=== PATIENT | female | born 1975 | race Caucasian/White ===

== ENCOUNTER 2016-12-18 01:21 | Inpatient (IN) | payer MEDICARE, OTHER ==
[~2016-12-18] VITALS: Ht 167.6 cm; Wt 188.3 kg
[2016-12-18] VITALS (9 sets, daily range): BP systolic 114–166; BP diastolic 63–88
--- NOTE | ~2016-12-18 | CON ---
[place], [place] REPORT OF CONSULTATION NAME[id number] UNIT #: [id number] ROOM: 406 DOCTOR: JODIE HUGHES MD BIRTHDATE: [birth year] DOS: 12/18/2016 CARDIOLOGY CONSULTATION The patient was seen at her bedside at [facility] today 12/18/2016 for Cardiology consultation. CHIEF COMPLAINT: Chest pain. HISTORY OF PRESENT ILLNESS: The patient is a 41-year-old woman who has had chest pain in the past. She was evaluated by Dr. Burris in 2013, at which time, a stress test was felt to be abnormal. She subsequently underwent cardiac catheterization and she reports that no blockages were found. Study was done at the [facility]. The patient states that she has not had cardiac followup since then. She also does have a history of deep venous thrombosis and pulmonary embolism. She states that she was treated with Xarelto in the past, but she bled into her abdomen. She cannot be more specific than that. She states that she was hospitalized in [place] and the blood thinner was stopped. She refuses to take blood thinners at this time. She states that for the last 5 days, she has had a constant pain in the center of her chest. It gets worse with exertion, but also gets worse with a deep breath. Nothing much makes it better. She was worried that she had another pulmonary embolism and therefore came to the Emergency Room. In the Emergency Room, laboratory studies did show an acute elevation in her creatinine levels. She therefore did undergo a V/Q scan to look for the possibility of pulmonary emboli. The study was reportedly normal. In addition, a lower extremity venous ultrasound showed no evidence for deep venous thrombosis. We were asked to assist in the evaluation of her chest pain. The patient states that she still does have some residual pain in her chest, although it is better than it was yesterday. It still does get worse with a deep breath. PAST MEDICAL HISTORY: Includes, 1. History of bipolar disorder. 2. History of depression. 3. History of deep venous thrombosis and pulmonary embolism in the past. 4. History of bleeding while on Xarelto. 5. History of chest pain. A stress test in 03/2014 showed inferior ischemia. She tells me that Dr. Brown did a cardiac catheterization at [facility] at that time and found no blockages. Those records will be requested. 6. Lymphedema of her legs, worse on the right than on the left. 7. Polycystic ovary syndrome. 8. History of hypothyroidism, on replacement. 9. History of cholecystectomy and hysterectomy. REVIEW OF SYSTEMS: The patient denies diplopia or loss of vision. She denies [place], [place] REPORT OF CONSULTATION NAME: THOMAS FREEMAN UNIT #: [id number] ROOM: [facility] DOCTOR: JODIE HUGHES MD BIRTHDATE: [birth year] focal weakness. She denies lightheadedness or syncope. She denies orthopnea or PND. She denies fevers, chills, sweats or recent weight change. She does admit, however, that since she quit smoking about 6 months ago, she has gained some weight. She denies nausea or vomiting. She does have a cough, but it is nonproductive. She denies fevers, chills or sweats. She denies any change in bowel or bladder habits and denies bleeding from any site. She does have chronic swelling in her legs from lymphedema. She denies any polydipsia or polyuria. She denies heat or cold intolerance. Remainder of the review of systems is negative except as noted above. MEDICATIONS: Prior to admission, 1. Abilify 5 mg at bedtime. 2. Hydroxyzine 50 mg b.i.d. 3. Lamictal 100 mg in the morning and 200 mg at bedtime. 4. Levothyroxine 100 mcg 4 tablets daily at bedtime and 600 mcg in the morning. 5. Metformin 2000 mg daily. 6. Oxycodone 5 mg q.8 hours p.r.n. 7. Ranitidine 150 mg b.i.d. 8. Victoza 0.6 mg per 0.1 mL, 18 mg subcutaneously b.i.d. ALLERGIES: She has no known drug allergies. FAMILY HISTORY: Her mother has atrial fibrillation. Her father has hypertension, both parents are alive. She states that other family members do have coronary artery disease. SOCIAL HISTORY: The patient was a smoker, but quit about 6 months ago. She does not consume significant amounts of alcohol at this time. PHYSICAL EXAMINATION: GENERAL: The patient is a morbidly obese white female who is awake, alert and oriented. VITAL SIGNS: Pulse is 54 and regular, blood pressure is 121/76. She is afebrile. She weighs 188.3 kg and has a body mass index of 67. HEENT: Normocephalic, atraumatic. Extraocular muscles are intact. Sclerae are clear. Pupils are equal, round and react to light. The oral mucosa is moist. Tongue is midline. NECK: Supple. She has no jugular distention. Carotids are full. I heard no bruits. She had no neck vein or supraclavicular masses. RESPIRATORY: Respirations are unlabored. Her chest is clear to auscultation and percussion. She has no presacral edema or chest wall tenderness. CARDIOVASCULAR: Her heart has a regular rhythm. Heart tones are distant. There is a fourth heart sound, but no third heart sound or murmur. The PMI is not displaced. There is no precordial heave, lift or thrill. Please note the palpation of the sternum does reproduce her pains. ABDOMEN: Obese, but otherwise benign, without masses, organomegaly or bruits. EXTREMITIES: Showed marked lymphedema. Her right leg is wrapped. LABORATORY DATA: I reviewed her electrocardiogram, which showed sinus rhythm, nonspecific ST and T-wave changes. No acute ST elevations were seen. Cardiac [place], [place] REPORT OF CONSULTATION NAME: THOMAS FREEMAN UNIT #: [id number] ROOM: [facility] DOCTOR: JODIE HUGHES MD BIRTHDATE: [birth year] biomarkers have been normal. The patient did undergo V/Q scanning. A CT angiogram was not done because of an acute elevation in her creatinine. The V/Q scan was normal and showed no evidence for pulmonary embolism. Lower extremity venous ultrasound was also normal and there was no evidence for DVT. Chest x-ray was unremarkable. IMPRESSIONS: 1. Atypical chest pain. The patient shows no objective evidence for myocardial infarction despite the fact that she has had pain for several days. There is also no objective evidence for deep vein thrombosis or pulmonary embolism. 2. Morbid obesity. 3. Depression. 4. History of bleeding while on Zaroxolyn in the past. Records are not currently available. 5. History of atypical chest pain. Cardiac catheterization in 2013 reportedly showed normal coronaries. Those records are being requested. 6. Chronic lymphedema of the lower extremities. PLAN: We will review the records of her catheterization when available. I have already reviewed her echocardiogram, which showed no wall motion abnormalities or evidence for right ventricular strain. I think at this point that noncardiac chest pain is the most likely etiology for her symptoms. In addition, I do not think that she shows any signs that she has had a pulmonary embolism recently. Symptomatic care appears to be appropriate along with risk factor modification. We will follow her with her other physicians and we thank the hospitalist physicians for asking our advice regarding her care. JODIE HUGHES MD CM:CONSTR:REPORT OF CONSULTATION 1800 01/22/17 1034 interface
[~2016-12-18 01:21] MED LIST: ALDACTONE50 MG PO; AMOXICILLIN500 MG PO; ANAPROX DS550 MG PO; ANASTROZOLE1 MG PO; BUSPAR10 MG PO; BUSPAR15 MG PO; CELEBREX200 MG PO; CEPHALEXIN500 M1 PO; CHANTIX0.5 MG PO; CIPRO250 MG PO; CIPROFLOXACIN500 MG PO; CLINDAMYCIN HC300 MG PO; DAYPRO600 M1 PO; DEMADEX20 MG PO; FLEXERIL10 MG PO; FOLIC ACID1 MG PO; HYOSCYAMINE0.125 M5 PO; KEFLEX500 MG PO; LAMICTAL CD5 MG PO; LAMICTAL PO; LAMICTAL100 MG PO; LEVOTHYROXINE0.2 M2 PO; LISINOPRIL2.5 MG PO; MEGACE40 MG PO; METFORMIN500 MG PO; METOPROLOL SR50 MG PO; OXYCODONE HCL5 MG PO; PERCOCET 325 MG1 TA2 PO; PRISTIQ50 MG PO; RITE AID ACID150 MG PO; ROBAXIN500 MG PO; SIMVASTATIN20 MG PO; SYNTHROID PO; SYNTHROID,LEV200 MCG PO; SYNTHROID0.2 MG PO; TOPAMAX100 MG PO; TRAMADOL HCL50 MG PO; TRAZADONE HYDR100 MG PO; TRIMOX500 MG PO; VICODIN 5/500 505 MG PO; VICTOZA 3-PAK6 MG/ML SC; WELLBUTRIN XL150 MG PO; XARE20MG PO
[2016-12-18] MEDS ORDERED: LEVOTHYROXINE0.2 MG PO (01:39)
[2016-12-18] MEDS ORDERED: VICTOZA6 MG/ML SC (01:40)
[2016-12-18] MEDS ORDERED: ZANTAC 150150 MG PO (01:41)
[2016-12-18] MEDS ORDERED: ABILIFY5 MG PO (01:42)
[2016-12-18] MEDS ORDERED: LAMICTAL200 MG PO (01:42)
[2016-12-18] MEDS ORDERED: VISTARIL50 MG PO (01:42)
[2016-12-18 01:54] LABS: BASO # 0.1 10*3/uL (0.0-0.1); BASO % 1.5 % (0.0-1.0); EOS # 0.3 10*3/uL (0.0-0.4); HEMATOCRIT 39.7 % (37.0-47.0); HEMOGLOBIN 12.9 g/dl (12.0-16.0); LYMPH # 1.8 10*3/uL (1.3-4.4); LYMPH % 32.7 % (27.0-41.0); MEAN CELL VOLUME 91.3 fl (81.0-99.0); MEAN CORPUSCULAR HGB 29.7 pg (27.0-31.0); MEAN CORPUSCULAR HGB CONC 32.5 g/dl (33.0-37.0); MEAN PLATELET VOLUME 10.8 fl (9.6-12.3); MONO # 0.4 10*3/uL (0.1-1.0); MONO % 7.4 % (3.0-9.0); NEUT # 2.9 10*3/uL (2.3-7.9); PLATELET COUNT AUTOMATED 181 10*3/uL (130-400); RED BLOOD COUNT 4.35 10*6/uL (4.10-5.10); WHITE BLOOD COUNT 5.4 10*3/uL (4.8-10.8)
[2016-12-18 02:05] LABS: PROTHROMBIN TIME 10.4 SECONDS (9.0-12.4)
[2016-12-18 02:09] LABS: ABG CO2 CONTENT 29.5 mmol/L (23-27); ABG HCO3 28.1 mmol/l (22-26); ARTERIAL BLOOD GAS PH 7.4 (7.35-7.45)
[2016-12-18 02:32] LABS: BUN 12 mg/dl (7-24); CARBON DIOXIDE 31 mmol/L (21-32); CHLORIDE 103 mmol/L (98-107); EST GLOM FILT AFRICAN AMERICAN > 60 ml/min; GLUCOSE 129 mg/dL (65-99); POTASSIUM 3.9 mmol/L (3.5-5.1); SODIUM 141 mmol/L (136-145)
[2016-12-18] MEDS ORDERED: LEVOTHYROXINE0.1 MG PO (05:03)
[2016-12-18 06:43] LABS: BASO # 0.1 10*3/uL (0.0-0.1); BASO % 1.4 % (0.0-1.0); EOS # 0.3 10*3/uL (0.0-0.4); EOS % 5.1 % (1.0-4.0); HEMATOCRIT 38.8 % (37.0-47.0); HEMOGLOBIN 12.4 g/dl (12.0-16.0); LYMPH # 1.7 10*3/uL (1.3-4.4); MEAN CELL VOLUME 91.3 fl (81.0-99.0); MEAN CORPUSCULAR HGB 29.2 pg (27.0-31.0); MEAN PLATELET VOLUME 11.3 fl (9.6-12.3); MONO # 0.5 10*3/uL (0.1-1.0); MONO % 8.9 % (3.0-9.0); NEUT # 2.6 10*3/uL (2.3-7.9); NEUT % 51.2 % (47.0-73.0); PLATELET COUNT AUTOMATED 175 10*3/uL (130-400); RED BLOOD COUNT 4.25 10*6/uL (4.10-5.10); RED CELL DISTRI WIDTH 14.1 % (0-14.5); WHITE BLOOD COUNT 5.1 10*3/uL (4.8-10.8)
[2016-12-18 06:46] LABS: CPK 86 U/L (26-192)
[2016-12-18 06:51] LABS: TROPONIN I < 0.015 ng/ml (<0.5)
[2016-12-18 06:59] LABS: PROTHROMBIN TIME 10.6 SECONDS (9.0-12.4)
[2016-12-18 07:13] LABS: ALBUMIN 2.9 gm/dl (3.1-4.5); BILIRUBIN, TOTAL 0.4 mg/dl (0.2-1.0); FREE T4 0.23 ng/dl (0.76-1.46); MAGNESIUM 2.1 mg/dL (1.5-2.1); PHOSPHOROUS 3.5 mg/dL (2.5-4.9); POTASSIUM 3.9 mmol/L (3.5-5.1); THYROID STIM HORMONE (HS) 44.7 uIU/ml (0.358-4.75); TOTAL PROTEIN 7.5 gm/dL (6.4-8.2)
[2016-12-18 09:40] LABS: FOLIC ACID 6.99 ng/mL (>5.38); VITAMIN D, 25-HYDROXY 24.5 ng/mL (30-100)
[2016-12-18 12:11] LABS: CKMB 0.9 ng/ml (0.5-3.6); CPK 91 U/L (26-192)
[2016-12-18 12:12] LABS: TROPONIN I < 0.015 ng/ml (<0.5)
[2016-12-18 18:56] LABS: CKMB 0.9 ng/ml (0.5-3.6)
[2016-12-18 19:03] LABS: CPK 120 U/L (26-192); TROPONIN I < 0.015 ng/ml (<0.5)
[2016-12-19] VITALS: BP 113/53
[2016-12-19 07:42] LABS: POTASSIUM 4.2 mmol/L (3.5-5.1)
[2016-12-19 08:00] VITALS: BP 125/71
[2016-12-19] MEDS ORDERED: D-1000 185 MG-11 TAB PO (11:27)
[2016-12-19 12:00] VITALS: BP 125/68
== END 2016-12-19 13:02 | disposition home or self-care (01) | DRG 391 ==
LOC: ED 01:21 → 4E 03:08 → EDHOLD 03:08 → 4E 03:30
PROVIDERS: Emergency Medicine Emergency Medical Services; Family Medicine; Internal Medicine
DX: K21.9 Gastro-esophageal reflux disease without esophagitis (principal); N17.0 Acute kidney failure with tubular necrosis; Z68.44 Body mass index [BMI] 60.0-69.9, adult; R73.9 Hyperglycemia, unspecified; E03.9 Hypothyroidism, unspecified; E66.01 Morbid (severe) obesity due to excess calories; F31.9 Bipolar disorder, unspecified; E28.2 Polycystic ovarian syndrome; I89.0 Lymphedema, not elsewhere classified; F41.9 Anxiety disorder, unspecified; Z86.711 Personal history of pulmonary embolism; Z79.01 Long term (current) use of anticoagulants; Z90.49 Acquired absence of other specified parts of digestive tract; Z90.710 Acquired absence of both cervix and uterus; Z98.890 Other specified postprocedural states; Z87.891 Personal history of nicotine dependence; Z82.49 Family history of ischemic heart disease and other diseases of the circulatory system; Z86.718 Personal history of other venous thrombosis and embolism

== ENCOUNTER 2017-04-26 18:46 | Emergency (ER) | payer MEDICARE, OTHER ==
[~2017-04-26] VITALS: Ht 167.6 cm; Wt 192.8 kg
[~2017-04-26 18:46] MED LIST changes: +ABILIFY5 MG PO; +D-1000 185 MG-11 TAB PO; +LAMICTAL200 MG PO; +LEVOTHYROXINE0.1 MG PO; +LEVOTHYROXINE0.2 MG PO; +VICTOZA6 MG/ML SC; +VISTARIL50 MG PO; +ZANTAC 150150 MG PO
[2017-04-26] MEDS ORDERED: HYDROXYCHLOROQ200 M1 PO (19:11)
[2017-04-26 19:23] LABS: BASO # 0.1 10*3/uL (0.0-0.1); BASO % 1.2 % (0.0-1.0); EOS # 0.3 10*3/uL (0.0-0.4); EOS % 4.2 % (1.0-4.0); HEMOGLOBIN 13.2 g/dl (12.0-16.0); LYMPH # 1.6 10*3/uL (1.3-4.4); LYMPH % 26.5 % (27.0-41.0); MEAN CELL VOLUME 95.2 fl (81.0-99.0); MEAN CORPUSCULAR HGB 29.9 pg (27.0-31.0); MEAN CORPUSCULAR HGB CONC 31.4 g/dl (33.0-37.0); MEAN PLATELET VOLUME 10.8 fl (9.6-12.3); MONO # 0.3 10*3/uL (0.1-1.0); NEUT # 3.7 10*3/uL (2.3-7.9); NEUT % 62.8 % (47.0-73.0); PLATELET COUNT AUTOMATED 190 10*3/uL (130-400); RED BLOOD COUNT 4.41 10*6/uL (4.10-5.10)
[2017-04-26 19:40] LABS: ALBUMIN 3.3 gm/dl (3.1-4.5); ALKALINE PHOSPHATASE 114 U/L (45-117); BILIRUBIN, TOTAL 0.5 mg/dl (0.2-1.0); BUN 11 mg/dl (7-24); CARBON DIOXIDE 31 mmol/L (21-32); CHLORIDE 104 mmol/L (98-107); EST GLOM FILT AFRICAN AMERICAN 47 ml/min; GLUCOSE 89 mg/dL (65-99); POTASSIUM 4.1 mmol/L (3.5-5.1); PROTHROMBIN TIME 10.6 SECONDS (9.0-12.4); SGOT/AST 35 IU/L (3-35); SGPT/ALT 39 U/L (12-78); SODIUM 142 mmol/L (136-145); TOTAL PROTEIN 8.2 gm/dL (6.4-8.2)
[2017-04-26 19:41] LABS: TROPONIN I < 0.015 ng/ml (<0.045)
== END 2017-04-26 23:56 | disposition home or self-care (01) ==
LOC: ED 18:46
PROVIDERS: Emergency Medicine Emergency Medical Services
DX: N18.9 Chronic kidney disease, unspecified (principal); F41.9 Anxiety disorder, unspecified; E03.9 Hypothyroidism, unspecified; Z90.49 Acquired absence of other specified parts of digestive tract; Z87.891 Personal history of nicotine dependence; Z79.899 Other long term (current) drug therapy

== ENCOUNTER → 2017-05-05 | Outpatient (CLI) | payer MEDICARE, OTHER ==
[~2017-05-05] MED LIST changes: +HYDROXYCHLOROQ200 M1 PO
[2017-05-05 16:33] LABS: BILIRUBIN NEGATIVE (NEGATIVE); BLOOD NEGATIVE (NEGATIVE); CLARITY SL CLOUDY (CLEAR); COLOR YELLOW (YELLOW); GLUCOSE NEGATIVE (NEGATIVE); KETONE NEGATIVE (NEGATIVE); LEUKO ESTERASE NEGATIVE (NEGATIVE); NITRITE NEGATIVE (NEGATIVE); PROTEIN NEGATIVE (NEGATIVE); UROBILINOGEN 0.2 E.U./dl (0.2-1.0)
[2017-05-05 16:34] LABS: BASO # 0.1 10*3/uL (0.0-0.1); BASO % 1.3 % (0.0-1.0); EOS # 0.2 10*3/uL (0.0-0.4); EOS % 3.9 % (1.0-4.0); HEMATOCRIT 42.3 % (37.0-47.0); HEMOGLOBIN 13.6 g/dl (12.0-16.0); LYMPH # 1.5 10*3/uL (1.3-4.4); LYMPH % 25.9 % (27.0-41.0); MEAN CELL VOLUME 93.8 fl (81.0-99.0); MEAN CORPUSCULAR HGB 30.2 pg (27.0-31.0); MEAN CORPUSCULAR HGB CONC 32.2 g/dl (33.0-37.0); MEAN PLATELET VOLUME 11.2 fl (9.6-12.3); MONO # 0.3 10*3/uL (0.1-1.0); MONO % 5.2 % (3.0-9.0); NEUT # 3.5 10*3/uL (2.3-7.9); NEUT % 63.2 % (47.0-73.0); PLATELET COUNT AUTOMATED 188 10*3/uL (130-400); RED BLOOD COUNT 4.51 10*6/uL (4.10-5.10); WHITE BLOOD COUNT 5.6 10*3/uL (4.8-10.8)
[2017-05-05 16:39] LABS: BACTERIA 1+; RBC 0-2 rbc/hpf (0-2); WBC 0-2 wbc/hpf (0-5)
[2017-05-05 16:42] LABS: URINE TP/CRE RATIO 0.1 (<0.21)
[2017-05-05 17:00] LABS: ALBUMIN 3.5 gm/dl (3.1-4.5); MAGNESIUM 2.2 mg/dL (1.5-2.1); PHOSPHOROUS 2.6 mg/dL (2.5-4.9); POTASSIUM 3.8 mmol/L (3.5-5.1)
[2017-05-06 05:08] LABS: TOTAL PROTEIN, SERUM 8.3 g/dL (6.0-8.5)
[2017-05-06 07:05] LABS: COMPLEMENT C4 001834 15 mg/dL (14-44)
[2017-05-06 08:10] LABS: HEPATITIS C VIRUS ANTIBODY 0.1 (0.0-0.9)
[2017-05-06 16:11] LABS: A/G RATIO 0.8 (0.7-1.7); ALBUMIN 3.6 g/dL (2.9-4.4); ALPHA-1-GLOBULIN 0.2 g/dL (0.0-0.4); BETA GLOBULIN 1.3 g/dL (0.7-1.3); GAMMA GLOBULIN 2.5 g/dL (0.4-1.8); GLOBULIN, TOTAL 4.7 g/dL (2.2-3.9); M-SPIKE Not Observed g/dL (Not Observed)
== END | disposition home or self-care (01) ==
LOC: LAB 15:52
PROVIDERS: Internal Medicine Nephrology
DX: N17.9 Acute kidney failure, unspecified (principal); M32.9 Systemic lupus erythematosus, unspecified; R10.9 Unspecified abdominal pain

== ENCOUNTER → 2017-05-27 | Outpatient (CLI) | payer MEDICARE, OTHER ==
[2017-05-27 14:52] LABS: ALBUMIN 3.2 gm/dl (3.1-4.5); PHOSPHOROUS 3.2 mg/dL (2.5-4.9); POTASSIUM 4.3 mmol/L (3.5-5.1)
== END | disposition home or self-care (01) ==
LOC: LAB 14:01
PROVIDERS: Internal Medicine Nephrology
DX: N18.3 Chronic kidney disease, stage 3 (moderate) (principal)

== ENCOUNTER 2018-04-17 17:02 | Emergency (ER) | payer MEDICARE ==
[~2018-04-17] VITALS: Ht 165.1 cm; Wt 189.6 kg
[~2018-04-17 17:02] MED LIST changes: -LEVOTHYROXINE0.1 MG PO; +UNITHROID300 MCG PO; +VICTOZA 2-0.6 MG/0.1 SQ; -VICTOZA6 MG/ML SC
[2018-04-17 17:23] LABS: BASO # 0.1 10*3/uL (0.0-0.1); BASO % 0.8 % (0.0-1.0); EOS # 0.3 10*3/uL (0.0-0.4); EOS % 3.5 % (1.0-4.0); HEMATOCRIT 41.6 % (37.0-47.0); HEMOGLOBIN 13.6 g/dl (12.0-16.0); LYMPH # 1.8 10*3/uL (1.3-4.4); LYMPH % 20.9 % (27.0-41.0); MEAN CELL VOLUME 90.4 fl (81.0-99.0); MEAN CORPUSCULAR HGB 29.6 pg (27.0-31.0); MEAN CORPUSCULAR HGB CONC 32.7 g/dl (33.0-37.0); MEAN PLATELET VOLUME 11.1 fl (9.6-12.3); MONO # 0.5 10*3/uL (0.1-1.0); MONO % 6.1 % (3.0-9.0); PLATELET COUNT AUTOMATED 215 10*3/uL (130-400); WHITE BLOOD COUNT 8.8 10*3/uL (4.8-10.8)
[2018-04-17 17:32] LABS: ACT PARTIAL THROMBO TIME 23.6 SECONDS (20.8-31.5); INTERNATIONAL NORM RATIO 0.9 (2.0-3.5)
[2018-04-17 17:42] LABS: ALBUMIN 3.3 gm/dl (3.1-4.5); ALKALINE PHOSPHATASE 151 U/L (45-117); BUN 13 mg/dl (7-24); CHLORIDE 104 mmol/L (98-107); CREATININE 0.89 mg/dL (0.55-1.02); POTASSIUM 4.2 mmol/L (3.5-5.1); SGOT/AST 57 IU/L (3-35); SGPT/ALT 51 U/L (12-78); SODIUM 139 mmol/L (136-145); TOTAL PROTEIN 8.1 gm/dL (6.4-8.2)
[2018-04-17 17:48] LABS: TROPONIN I < 0.015 ng/ml (<0.045)
[2018-04-17] MEDS ORDERED: VITAMIN D50000 UNIT PO (21:53)
[2018-04-17] MEDS ORDERED: BENLYSTA IV (21:56)
[2018-04-17] MEDS ORDERED: TRINTELLIX10 MG PO (21:56)
[2018-04-17] MEDS ORDERED: VYVANSE30 MG PO (21:56)
[2018-04-17] MEDS ORDERED: OMEPRAZOLE D/R20 MG PO (21:57)
== END 2018-04-18 00:17 | disposition short-term general hospital (02) ==
LOC: ED 17:02
PROVIDERS: Emergency Medicine
DX: R07.89 Other chest pain (principal); F17.210 Nicotine dependence, cigarettes, uncomplicated; M32.9 Systemic lupus erythematosus, unspecified; E03.9 Hypothyroidism, unspecified; E66.01 Morbid (severe) obesity due to excess calories; E11.22 Type 2 diabetes mellitus with diabetic chronic kidney disease; Z68.44 Body mass index [BMI] 60.0-69.9, adult; Z90.49 Acquired absence of other specified parts of digestive tract; Z86.711 Personal history of pulmonary embolism; Z90.710 Acquired absence of both cervix and uterus; Z79.899 Other long term (current) drug therapy

== ENCOUNTER 2018-06-06 09:30 | Emergency (ER) | payer MEDICARE ==
[~2018-06-06] VITALS: Ht 165.1 cm; Wt 195.5 kg
[~2018-06-06 09:30] MED LIST changes: +BENLYSTA IV; +OMEPRAZOLE D/R20 MG PO; +TRINTELLIX10 MG PO; +VITAMIN D50000 UNIT PO; +VYVANSE30 MG PO
[2018-06-06] MEDS ORDERED: VIBRAMYCIN100 MG PO (09:31)
[2018-06-06] MEDS ORDERED: ZOFRAN4 MG PO (09:35)
== END 2018-06-06 09:42 | disposition home or self-care (01) ==
LOC: ED 09:30
DX: L02.31 Cutaneous abscess of buttock (principal); R03.0 Elevated blood-pressure reading, without diagnosis of hypertension; M32.9 Systemic lupus erythematosus, unspecified; E66.01 Morbid (severe) obesity due to excess calories; E03.9 Hypothyroidism, unspecified; N18.9 Chronic kidney disease, unspecified; E11.65 Type 2 diabetes mellitus with hyperglycemia; Z90.49 Acquired absence of other specified parts of digestive tract; Z90.710 Acquired absence of both cervix and uterus; Z87.891 Personal history of nicotine dependence; Z68.44 Body mass index [BMI] 60.0-69.9, adult; Z86.711 Personal history of pulmonary embolism; Z98.890 Other specified postprocedural states; Z79.899 Other long term (current) drug therapy

== ENCOUNTER 2019-02-09 13:45 | Inpatient (IN) | payer MEDICAID, MEDICARE, OTHER ==
[~2019-02-09] VITALS: Ht 167.6 cm; Wt 193.3 kg
--- NOTE | ~2019-02-09 | EKG ---
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
--- NOTE | ~2019-02-09 | EKG ---
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
--- NOTE | ~2019-02-09 | EKG ---
[place], [place] ELECTROCARDIOGRAM REPORT NAME: THOMAS FREEMAN UNIT #: [id number] ROOM: 427 DOCTOR: MARC DRAFT REPORT BIRTHDATE: [birth year] [facility] Test Date: 2019-02-09 Test Time: 19:22:09 Pat Name: THOMAS FREEMAN Department: Room: 427 Gender: F Corn Husker: Lorelei Ambriz : 1975 Requested By: SULY CANDELARIO Order Number: [id number] Reading MD: Addis Patricio MD Measurements Intervals [place] Rate: 78 P: 22 NV: 148 QRS: 27 QRSD: 77 T: -45 QT: 348 QTc: 397 Interpretive Statements Sinus rhythm Low voltage, precordial leads Nonspecific repol abnormality, diffuse leads No previous ECG available for comparison Electronically Signed On 02-12-2019 9:52:15 PDT by Addis Patricio MD CM:EKGRPT:ELECTROCARDIOGRAM REPORT [id number] SULY POLLACK DRAFT REPORT SULY CANDELARIO DO
[~2019-02-09 13:45] MED LIST changes: +VIBRAMYCIN100 MG PO; +ZOFRAN4 MG PO
[2019-02-09 13:54] VITALS: BP 140/88
[2019-02-09 14:23] LABS: BASO # 0.1 10*3/uL (0.0-0.1); BASO % 0.9 % (0.0-1.0); EOS # 0.2 10*3/uL (0.0-0.4); EOS % 3.1 % (1.0-4.0); HEMATOCRIT 43.1 % (37.0-47.0); HEMOGLOBIN 13.8 g/dl (12.0-16.0); LYMPH # 1.2 10*3/uL (1.3-4.4); MEAN CELL VOLUME 94.9 fl (81.0-99.0); MEAN CORPUSCULAR HGB 30.4 pg (27.0-31.0); MONO # 0.4 10*3/uL (0.1-1.0); MONO % 6.4 % (3.0-9.0); NEUT # 4.5 10*3/uL (2.3-7.9); PLATELET COUNT AUTOMATED 184 10*3/uL (130-400); RED BLOOD COUNT 4.54 10*6/uL (4.10-5.10); RED CELL DISTRI WIDTH 13.7 % (0-14.5); WHITE BLOOD COUNT 6.4 10*3/uL (4.8-10.8)
[2019-02-09 14:38] LABS: ACT PARTIAL THROMBO TIME 24.9 SECONDS (20.8-31.5)
[2019-02-09 14:56] LABS: ALBUMIN 3.1 gm/dl (3.1-4.5); ALKALINE PHOSPHATASE 172 U/L (45-117); BUN 9 mg/dl (7-24); CHLORIDE 99 mmol/L (98-107); CREATININE 1.03 mg/dL (0.55-1.02); LIPASE 132 U/L (73-393); POTASSIUM 4.4 mmol/L (3.5-5.1); SGOT/AST 38 IU/L (3-35); SGPT/ALT 57 U/L (12-78); SODIUM 134 mmol/L (136-145); TOTAL PROTEIN 7.6 gm/dL (6.4-8.2)
[2019-02-09 14:57] LABS: BETA-HCG, QUANT < 1.0 mIU/mL (1-3)
[2019-02-09 15:01] LABS: TROPONIN I < 0.015 ng/ml (<0.045)
--- NOTE | 2019-02-09 16:50 | NUR ---
A 43, admitted to 4E, under the services of ROSA Aldrich DO with a diagnosis of CHEST PAIN . Chief complaint is CHEST PAIN . Patient arrived via stretcher from ER. Monitor applied. Initial assessment completed. Vital signs taken and recorded. ROSA ALDRICH DO notified of admission to the unit. Orders received. See assessment for past medical history, medications and allergies. Patient and/or family oriented to unit. visitation policy reviewed. Clothing/patient valuable form completed. GIGI GILL
[2019-02-09] MEDS ORDERED: UNITHROID300 MCG PO (17:13)
[2019-02-09] MEDS ORDERED: OZEMPIC0.25 MG/01 SQ (17:17)
[2019-02-09] MEDS ORDERED: ULTRAM50 MG PO (17:19)
[2019-02-09] MEDS ORDERED: PREDNISONE2.5 MG PO (17:25)
[2019-02-09] MEDS ORDERED: TRESIBA100 UNIT/1 SQ (17:29)
--- NOTE | 2019-02-09 17:32 | NUR ---
med rec updated per pt
--- NOTE | 2019-02-09 18:36 | NUR ---
DR CHRISTINE ANSWERING SERVICE NOTIFIED OF CONSULT
[2019-02-09 20:00] VITALS: BP 129/55
[2019-02-10] VITALS: BP 113/76
[2019-02-10 07:11] LABS: BASO # 0.1 10*3/uL (0.0-0.1); BASO % 0.7 % (0.0-1.0); EOS # 0.2 10*3/uL (0.0-0.4); EOS % 3.1 % (1.0-4.0); HEMOGLOBIN 13.3 g/dl (12.0-16.0); LYMPH # 1.1 10*3/uL (1.3-4.4); LYMPH % 15.7 % (27.0-41.0); MEAN CORPUSCULAR HGB 29.7 pg (27.0-31.0); MEAN CORPUSCULAR HGB CONC 30.9 g/dl (33.0-37.0); MEAN PLATELET VOLUME 12.1 fl (9.6-12.3); MONO # 0.5 10*3/uL (0.1-1.0); MONO % 7.1 % (3.0-9.0); NEUT # 4.9 10*3/uL (2.3-7.9); NEUT % 72.8 % (47.0-73.0); PLATELET COUNT AUTOMATED 182 10*3/uL (130-400); RED BLOOD COUNT 4.48 10*6/uL (4.10-5.10); RED CELL DISTRI WIDTH 13.7 % (0-14.5); WHITE BLOOD COUNT 6.7 10*3/uL (4.8-10.8)
[2019-02-10 07:35] LABS: CREATININE 1.21 mg/dL (0.55-1.02); PHOSPHOROUS 3.4 mg/dL (2.5-4.9); POTASSIUM 3.7 mmol/L (3.5-5.1)
[2019-02-10 07:43] LABS: THYROID STIM HORMONE (HS) 8.94 uIU/ml (0.358-4.75)
[2019-02-10 08:58] LABS: VITAMIN D, 25-HYDROXY 19.2 ng/mL (30-100)
--- NOTE | 2019-02-10 09:00 | NUR ---
Mangle Tender in to talk to patient. Patient states lives at home alone with her psych correctional counselor/case manager checking in on her. All of her family are out of state. There are 0 steps in the home. Physician: Kaitlin Carrington Pharmacy: [facility] Home health services: none Patient's level of ADLs: INDEPENDENT Patient has working utilities: yes DME: O2 @ 2L [place], portable O2 tanks, nebulizer, O2 supplier [facility] Follow-up physician's appointment after d/c: will be made by the hospitalist nurse director upon discharge Does patient want to access PORTAL?: no Discharge plan discussed with patient. She lives at home alone with her correctional counselor/case manager checking in on her. She is independent in her ADLs and ambulation. She states she has lupus and for 80% of the time she is good but the other 20% of the time she is in excruciating pain. She has tried to get help at home before but she does work 16 hours a week and Medicare considers that not home bound for home health care services. She goes to [facility] in [facility] for her lymphedema. When medically stable she will be discharged to home. NICCI VILLAREAL
--- NOTE | 2019-02-10 11:25 | NUR ---
PATIENT RECEIVED TYLENOL FOR HEADACHE RATED 5/10 ON A PAIN SCALE.
[2019-02-10 12:00] VITALS: BP 101/61
[2019-02-10 16:00] VITALS: BP 96/54
[2019-02-10 20:00] VITALS: BP 128/66
--- NOTE | 2019-02-10 20:52 | NUR ---
MEDICATED WITH PRN ULTRAM FOR C/O HEADACHE RATED 4/10 ON A 0/10 PAIN SCALE
--- NOTE | 2019-02-10 21:13 | NUR ---
DR CARPIO AWARE OF PATIENT WITH NO IV ACCESS. PATIENT C/O SO MANY ATTEMPTS AND IV'S BLOWING. ALSO STATES WE CANNOT PUT AND IV IN HER RIGHT ANTECUBITAL.
[2019-02-11] VITALS: BP 132/89
--- NOTE | 2019-02-11 01:19 | NUR ---
24 HR chart check completed.
--- NOTE | 2019-02-11 08:38 | NUR ---
DR MOYA NOTIFIED OF CRITICAL VANC TROUGH.
[2019-02-11 09:22] LABS: BASO # 0.1 10*3/uL (0.0-0.1); BASO % 0.9 % (0.0-1.0); EOS # 0.3 10*3/uL (0.0-0.4); EOS % 3.3 % (1.0-4.0); HEMATOCRIT 41.6 % (37.0-47.0); HEMOGLOBIN 13.5 g/dl (12.0-16.0); LYMPH # 1.4 10*3/uL (1.3-4.4); LYMPH % 19.1 % (27.0-41.0); MEAN CELL VOLUME 94.1 fl (81.0-99.0); MEAN CORPUSCULAR HGB 30.5 pg (27.0-31.0); MEAN CORPUSCULAR HGB CONC 32.5 g/dl (33.0-37.0); MEAN PLATELET VOLUME 12.7 fl (9.6-12.3); MONO # 0.6 10*3/uL (0.1-1.0); MONO % 8.1 % (3.0-9.0); NEUT # 5.1 10*3/uL (2.3-7.9); NEUT % 67.9 % (47.0-73.0); PLATELET COUNT AUTOMATED 192 10*3/uL (130-400); RED BLOOD COUNT 4.42 10*6/uL (4.10-5.10); RED CELL DISTRI WIDTH 13.7 % (0-14.5); WHITE BLOOD COUNT 7.5 10*3/uL (4.8-10.8)
[2019-02-11 09:30] LABS: CREATININE 1.31 mg/dL (0.55-1.02); POTASSIUM 3.3 mmol/L (3.5-5.1)
[2019-02-11 12:00] VITALS: BP 144/81
[2019-02-11 16:00] VITALS: BP 124/60
[2019-02-11 20:00] VITALS: BP 139/77
--- NOTE | 2019-02-11 20:30 | NUR ---
INTO SEE PT. PT'S MIDLINE PULLED OUT WHEN TAKING A SHOWER. DR. CARPIO NOTIFIED. WILL PUT ANOTHER IN LATER PER DR. JANKI FARR TO MONITOR PT
--- NOTE | 2019-02-11 21:08 | NUR ---
PHARMACY NOTIFIED THAT PT WILL NOT GET HIS ORIGINAL SCHEDULED VANCO DUE TO PULLED OUT MIDLINE. ORDERS ARE TO NOTE WHEN ABLE TO GIVE. WILL CONTINUE TO MONITOR PT
[2019-02-12] VITALS: BP 119/63
[2019-02-12 07:31] LABS: BASO # 0.1 10*3/uL (0.0-0.1); BASO % 1.1 % (0.0-1.0); EOS # 0.2 10*3/uL (0.0-0.4); EOS % 3.2 % (1.0-4.0); HEMATOCRIT 41.1 % (37.0-47.0); HEMOGLOBIN 13.4 g/dl (12.0-16.0); LYMPH # 1.4 10*3/uL (1.3-4.4); LYMPH % 19.5 % (27.0-41.0); MEAN CORPUSCULAR HGB 30.3 pg (27.0-31.0); MEAN CORPUSCULAR HGB CONC 32.6 g/dl (33.0-37.0); MEAN PLATELET VOLUME 11.9 fl (9.6-12.3); MONO # 0.5 10*3/uL (0.1-1.0); MONO % 6.6 % (3.0-9.0); NEUT # 5.1 10*3/uL (2.3-7.9); NEUT % 69.2 % (47.0-73.0); PLATELET COUNT AUTOMATED 176 10*3/uL (130-400); RED BLOOD COUNT 4.42 10*6/uL (4.10-5.10); RED CELL DISTRI WIDTH 13.6 % (0-14.5); WHITE BLOOD COUNT 7.4 10*3/uL (4.8-10.8)
[2019-02-12 08:00] VITALS: BP 121/74
[2019-02-12 08:24] LABS: CREATININE 1.41 mg/dL (0.55-1.02); POTASSIUM 3.2 mmol/L (3.5-5.1)
--- NOTE | 2019-02-12 09:00 | NUR ---
Nurse Assessor in to see patient. No new needs or request at this time. She denies any home needs. When medically stable she will be discharged to home.
[2019-02-12 12:00] VITALS: BP 113/54
[2019-02-12] MEDS ORDERED: LASIX40 MG PO (13:52)
[2019-02-12] MEDS ORDERED: CLINDAMYCIN HC300 MG PO (13:52)
[2019-02-12] MEDS ORDERED: KLOR-CON 1010 ME1 PO (13:52)
[2019-02-12] MEDS ORDERED: VITAMIN D32000 UNI1 PO (13:52)
--- NOTE | 2019-02-12 15:58 | NUR ---
Discharge instructions reviewed with patient/family. Patient receptive and verbalizes understanding. Follow-up care arranged. Written instructions given to patient/family. PATIENT TAKEN FROM FLOOR VIA WHEELCHAIR. NO S/S OF DISTRESS. YOSELYN HENSLEY
== END 2019-02-12 15:58 | disposition home or self-care (01) | DRG 602 ==
LOC: ED 13:45 → 4E 15:59 → EDHOLD 15:59 → 4E 16:08
PROVIDERS: Emergency Medicine; Internal Medicine; Student in an Organized Health Care Education/Training Program; ADMIT Internal Medicine
DX: L03.116 Cellulitis of left lower limb (principal); N17.0 Acute kidney failure with tubular necrosis; E87.1 Hypo-osmolality and hyponatremia; Z68.44 Body mass index [BMI] 60.0-69.9, adult; I13.0 Hypertensive heart and chronic kidney disease with heart failure and stage 1 through stage 4 chronic kidney disease, or unspecified chronic kidney disease; I50.30 Unspecified diastolic (congestive) heart failure; L03.115 Cellulitis of right lower limb; R09.89 Other specified symptoms and signs involving the circulatory and respiratory systems; I89.0 Lymphedema, not elsewhere classified; M32.9 Systemic lupus erythematosus, unspecified; R74.0 Nonspecific elevation of levels of transaminase and lactic acid dehydrogenase [LDH]; F31.9 Bipolar disorder, unspecified; E28.2 Polycystic ovarian syndrome; F41.9 Anxiety disorder, unspecified; E66.01 Morbid (severe) obesity due to excess calories; E03.9 Hypothyroidism, unspecified; E78.5 Hyperlipidemia, unspecified; E11.22 Type 2 diabetes mellitus with diabetic chronic kidney disease; I34.0 Nonrheumatic mitral (valve) insufficiency; N18.9 Chronic kidney disease, unspecified; R07.89 Other chest pain; E11.65 Type 2 diabetes mellitus with hyperglycemia; Z86.711 Personal history of pulmonary embolism; Z86.718 Personal history of other venous thrombosis and embolism; Z85.42 Personal history of malignant neoplasm of other parts of uterus; Z90.49 Acquired absence of other specified parts of digestive tract; Z90.710 Acquired absence of both cervix and uterus; Z87.891 Personal history of nicotine dependence; Z82.49 Family history of ischemic heart disease and other diseases of the circulatory system; Z79.4 Long term (current) use of insulin; Z79.899 Other long term (current) drug therapy

== ENCOUNTER 2019-03-23 07:50 | Emergency (ER) | payer MEDICARE, OTHER ==
[~2019-03-23] VITALS: Ht 165.1 cm; Wt 197.3 kg
[~2019-03-23 07:50] MED LIST changes: +KLOR-CON 1010 ME1 PO; +LASIX40 MG PO; +OZEMPIC0.25 MG/01 SQ; +PREDNISONE2.5 MG PO; +TRESIBA100 UNIT/1 SQ; +ULTRAM50 MG PO; +VITAMIN D32000 UNI1 PO
[2019-03-23 08:16] LABS: BASO % 0.4 % (0.0-1.0); EOS # 0.2 10*3/uL (0.0-0.4); HEMATOCRIT 44.7 % (37.0-47.0); HEMOGLOBIN 14.4 g/dl (12.0-16.0); LYMPH # 1.1 10*3/uL (1.3-4.4); LYMPH % 12.2 % (27.0-41.0); MEAN CELL VOLUME 93.9 fl (81.0-99.0); MEAN CORPUSCULAR HGB 30.3 pg (27.0-31.0); MEAN CORPUSCULAR HGB CONC 32.2 g/dl (33.0-37.0); MEAN PLATELET VOLUME 11.5 fl (9.6-12.3); MONO # 0.4 10*3/uL (0.1-1.0); MONO % 4.9 % (3.0-9.0); NEUT # 7.2 10*3/uL (2.3-7.9); NEUT % 80.1 % (47.0-73.0); PLATELET COUNT AUTOMATED 187 10*3/uL (130-400); RED BLOOD COUNT 4.76 10*6/uL (4.10-5.10); RED CELL DISTRI WIDTH 13.1 % (0-14.5)
[2019-03-23 08:35] LABS: ALKALINE PHOSPHATASE 155 U/L (45-117); BUN 9 mg/dl (7-24); CHLORIDE 102 mmol/L (98-107); CREATININE 1.04 mg/dL (0.55-1.02); POTASSIUM 4.1 mmol/L (3.5-5.1); SGOT/AST 19 IU/L (3-35); SGPT/ALT 48 U/L (12-78); SODIUM 137 mmol/L (136-145); TOTAL PROTEIN 6.9 gm/dL (6.4-8.2)
[2019-03-23 10:40] LABS: BILIRUBIN NEGATIVE (NEGATIVE); BLOOD NEGATIVE (NEGATIVE); CLARITY CLEAR (CLEAR); COLOR YELLOW (YELLOW); GLUCOSE NEGATIVE (NEGATIVE); KETONE NEGATIVE (NEGATIVE); LEUKO ESTERASE NEGATIVE (NEGATIVE); NITRITE NEGATIVE (NEGATIVE); UROBILINOGEN 0.2 E.U./dl (0.2-1.0)
[2019-03-23 10:56] LABS: BACTERIA TRACE; RBC 0-2 rbc/hpf (0-2); WBC 0-2 wbc/hpf (0-5)
[2019-03-23] MEDS ORDERED: FLAGYL500 MG PO (12:18)
[2019-03-23] MEDS ORDERED: CIPRO500 MG PO (12:18)
== END 2019-03-23 12:26 | disposition home or self-care (01) ==
LOC: ED 07:50
PROVIDERS: Emergency Medicine
DX: K52.9 Noninfective gastroenteritis and colitis, unspecified (principal); K57.32 Diverticulitis of large intestine without perforation or abscess without bleeding; E11.22 Type 2 diabetes mellitus with diabetic chronic kidney disease; I12.9 Hypertensive chronic kidney disease with stage 1 through stage 4 chronic kidney disease, or unspecified chronic kidney disease; N18.9 Chronic kidney disease, unspecified; E78.5 Hyperlipidemia, unspecified; E03.9 Hypothyroidism, unspecified; E66.01 Morbid (severe) obesity due to excess calories; Z79.899 Other long term (current) drug therapy; Z79.2 Long term (current) use of antibiotics; Z79.4 Long term (current) use of insulin; Z87.891 Personal history of nicotine dependence; Z90.49 Acquired absence of other specified parts of digestive tract; Z90.710 Acquired absence of both cervix and uterus; Z68.44 Body mass index [BMI] 60.0-69.9, adult

== ENCOUNTER → 2019-04-21 | Outpatient (CLI) | payer MEDICARE, OTHER ==
[~2019-04-21] MED LIST changes: +CIPRO500 MG PO; +FLAGYL500 MG PO; +NAPROSYN500 MG PO
== END | disposition home or self-care (01) ==
LOC: US 11:30
DX: I89.0 Lymphedema, not elsewhere classified (principal); R60.0 Localized edema

== ENCOUNTER 2019-06-11 21:38 | Emergency (ER) | payer MEDICARE, OTHER ==
[~2019-06-11] VITALS: Ht 167.6 cm; Wt 191.0 kg
[~2019-06-11 21:38] MED LIST changes: -NAPROSYN500 MG PO
[2019-06-11 22:04] LABS: BILIRUBIN NEGATIVE (NEGATIVE); BLOOD NEGATIVE (NEGATIVE); CLARITY SL CLOUDY (CLEAR); COLOR YELLOW (YELLOW); GLUCOSE 3+ (NEGATIVE); KETONE NEGATIVE (NEGATIVE); LEUKO ESTERASE NEGATIVE (NEGATIVE); NITRITE NEGATIVE (NEGATIVE); UROBILINOGEN 0.2 E.U./dl (0.2-1.0)
[2019-06-11 22:11] LABS: BASO # 0.1 10*3/uL (0.0-0.1); BASO % 0.8 % (0.0-1.0); EOS % 0.3 % (1.0-4.0); HEMATOCRIT 42.2 % (37.0-47.0); HEMOGLOBIN 13.7 g/dl (12.0-16.0); LYMPH % 10.8 % (27.0-41.0); MEAN CELL VOLUME 92.3 fl (81.0-99.0); MEAN CORPUSCULAR HGB CONC 32.5 g/dl (33.0-37.0); MEAN PLATELET VOLUME 12.9 fl (9.6-12.3); MONO # 0.3 10*3/uL (0.1-1.0); MONO % 3.7 % (3.0-9.0); NEUT # 7.5 10*3/uL (2.3-7.9); NEUT % 83.3 % (47.0-73.0); PLATELET COUNT AUTOMATED 177 10*3/uL (130-400); RED BLOOD COUNT 4.57 10*6/uL (4.10-5.10); RED CELL DISTRI WIDTH 13.2 % (0-14.5)
[2019-06-11 22:22] LABS: BACTERIA TRACE; RBC 0-2 rbc/hpf (0-2); WBC 0-2 wbc/hpf (0-5)
[2019-06-11 22:27] LABS: ALBUMIN 3.1 gm/dl (3.1-4.5); ALKALINE PHOSPHATASE 199 U/L (45-117); BUN 13 mg/dl (7-24); CHLORIDE 101 mmol/L (98-107); CREATININE 1.15 mg/dL (0.55-1.02); LIPASE 108 U/L (73-393); POTASSIUM 4.1 mmol/L (3.5-5.1); SGOT/AST 35 IU/L (3-35); SGPT/ALT 60 U/L (12-78); SODIUM 136 mmol/L (136-145); TOTAL PROTEIN 7.6 gm/dL (6.4-8.2)
[2019-06-12 02:36] LABS: BUN 14 mg/dl (7-24); CHLORIDE 103 mmol/L (98-107); POTASSIUM 4.1 mmol/L (3.5-5.1); SODIUM 138 mmol/L (136-145)
== END 2019-06-12 04:01 | disposition home or self-care (01) ==
LOC: ED 21:38
PROVIDERS: Emergency Medicine Emergency Medical Services
DX: E11.65 Type 2 diabetes mellitus with hyperglycemia (principal); M32.9 Systemic lupus erythematosus, unspecified; K75.81 Nonalcoholic steatohepatitis (NASH); E11.22 Type 2 diabetes mellitus with diabetic chronic kidney disease; I12.9 Hypertensive chronic kidney disease with stage 1 through stage 4 chronic kidney disease, or unspecified chronic kidney disease; N18.9 Chronic kidney disease, unspecified; E78.5 Hyperlipidemia, unspecified; E03.9 Hypothyroidism, unspecified; E66.01 Morbid (severe) obesity due to excess calories; F17.200 Nicotine dependence, unspecified, uncomplicated; Z79.899 Other long term (current) drug therapy; Z79.2 Long term (current) use of antibiotics; Z79.4 Long term (current) use of insulin; Z68.44 Body mass index [BMI] 60.0-69.9, adult; Z90.49 Acquired absence of other specified parts of digestive tract; Z90.710 Acquired absence of both cervix and uterus; Z87.891 Personal history of nicotine dependence

== ENCOUNTER 2019-07-25 12:01 | Emergency (ER) | payer MEDICARE, OTHER ==
[~2019-07-25] VITALS: Ht 165.1 cm; Wt 182.8 kg
[2019-07-25 12:39] LABS: BASO # 0.1 10*3/uL (0.0-0.1); BASO % 0.6 % (0.0-1.0); EOS # 0.2 10*3/uL (0.0-0.4); EOS % 1.3 % (1.0-4.0); HEMATOCRIT 48.4 % (37.0-47.0); HEMOGLOBIN 15.6 g/dl (12.0-16.0); LYMPH % 16.4 % (27.0-41.0); MEAN CELL VOLUME 93.1 fl (81.0-99.0); MEAN CORPUSCULAR HGB CONC 32.2 g/dl (33.0-37.0); MEAN PLATELET VOLUME 11.6 fl (9.6-12.3); MONO # 0.6 10*3/uL (0.1-1.0); MONO % 4.8 % (3.0-9.0); NEUT # 9.3 10*3/uL (2.3-7.9); NEUT % 76.3 % (47.0-73.0); PLATELET COUNT AUTOMATED 231 10*3/uL (130-400); RED CELL DISTRI WIDTH 13.2 % (0-14.5); WHITE BLOOD COUNT 12.2 10*3/uL (4.8-10.8)
[2019-07-25 12:43] LABS: BILIRUBIN NEGATIVE (NEGATIVE); BLOOD NEGATIVE (NEGATIVE); CLARITY SL CLOUDY (CLEAR); COLOR YELLOW (YELLOW); GLUCOSE NEGATIVE (NEGATIVE); KETONE NEGATIVE (NEGATIVE); LEUKO ESTERASE NEGATIVE (NEGATIVE); NITRITE NEGATIVE (NEGATIVE); SPECIFIC GRAVITY 1.025 (1.005-1.030); UROBILINOGEN 0.2 E.U./dl (0.2-1.0)
[2019-07-25 12:52] LABS: BACTERIA TRACE; EPITHELIAL CELLS 31-40; MUCOUS TRACE
[2019-07-25 12:53] LABS: ALBUMIN 3.7 gm/dl (3.1-4.5); ALKALINE PHOSPHATASE 173 U/L (45-117); BUN 13 mg/dl (7-24); CHLORIDE 106 mmol/L (98-107); CREATININE 0.98 mg/dL (0.55-1.02); POTASSIUM 3.4 mmol/L (3.5-5.1); SGOT/AST 31 IU/L (3-35); SGPT/ALT 61 U/L (12-78); SODIUM 141 mmol/L (136-145); TOTAL PROTEIN 8.1 gm/dL (6.4-8.2)
[2019-07-26] MEDS ORDERED: NAPROSYN500 MG PO (17:24)
== END 2019-07-25 14:00 ==
LOC: ED 12:01
PROVIDERS: Nurse Practitioner Family
DX: R10.31 Right lower quadrant pain (principal); Z79.899 Other long term (current) drug therapy; Z87.891 Personal history of nicotine dependence; Z90.49 Acquired absence of other specified parts of digestive tract

== ENCOUNTER 2019-07-26 12:12 | Emergency (ER) | payer MEDICARE, OTHER ==
[~2019-07-26] VITALS: Ht 165.1 cm; Wt 182.8 kg
[2019-07-26 12:46] LABS: BILIRUBIN NEGATIVE (NEGATIVE); BLOOD NEGATIVE (NEGATIVE); CLARITY SL CLOUDY (CLEAR); COLOR YELLOW (YELLOW); GLUCOSE NEGATIVE (NEGATIVE); KETONE NEGATIVE (NEGATIVE); LEUKO ESTERASE NEGATIVE (NEGATIVE); NITRITE NEGATIVE (NEGATIVE); SPECIFIC GRAVITY <= 1.005 (1.005-1.030); UROBILINOGEN 0.2 E.U./dl (0.2-1.0)
[2019-07-26 12:51] LABS: BASO # 0.1 10*3/uL (0.0-0.1); BASO % 0.8 % (0.0-1.0); EOS # 0.2 10*3/uL (0.0-0.4); HEMATOCRIT 47.3 % (37.0-47.0); HEMOGLOBIN 15.1 g/dl (12.0-16.0); LYMPH # 1.3 10*3/uL (1.3-4.4); LYMPH % 12.4 % (27.0-41.0); MEAN CELL VOLUME 94.4 fl (81.0-99.0); MEAN CORPUSCULAR HGB 30.1 pg (27.0-31.0); MEAN CORPUSCULAR HGB CONC 31.9 g/dl (33.0-37.0); MEAN PLATELET VOLUME 11.9 fl (9.6-12.3); MONO # 0.5 10*3/uL (0.1-1.0); MONO % 4.6 % (3.0-9.0); NEUT # 8.6 10*3/uL (2.3-7.9); NEUT % 79.6 % (47.0-73.0); PLATELET COUNT AUTOMATED 217 10*3/uL (130-400); RED BLOOD COUNT 5.01 10*6/uL (4.10-5.10); RED CELL DISTRI WIDTH 13.4 % (0-14.5); WHITE BLOOD COUNT 10.8 10*3/uL (4.8-10.8)
[2019-07-26 13:08] LABS: ALBUMIN 3.4 gm/dl (3.1-4.5); ALKALINE PHOSPHATASE 157 U/L (45-117); BUN 14 mg/dl (7-24); CHLORIDE 108 mmol/L (98-107); CREATININE 0.98 mg/dL (0.55-1.02); POTASSIUM 4.1 mmol/L (3.5-5.1); SGOT/AST 34 IU/L (3-35); SGPT/ALT 57 U/L (12-78); SODIUM 140 mmol/L (136-145); TOTAL PROTEIN 7.4 gm/dL (6.4-8.2)
[2019-07-26 13:23] LABS: BACTERIA 1+
[2019-07-26] MEDS ORDERED: NAPROSYN500 MG PO (17:24)
== END 2019-07-26 17:33 | disposition home or self-care (01) ==
LOC: ED 12:12
PROVIDERS: Nurse Practitioner Family
DX: R10.31 Right lower quadrant pain (principal); R11.0 Nausea; R45.89 Other symptoms and signs involving emotional state; Z79.2 Long term (current) use of antibiotics; Z79.899 Other long term (current) drug therapy; Z90.49 Acquired absence of other specified parts of digestive tract; Z90.710 Acquired absence of both cervix and uterus; Z87.891 Personal history of nicotine dependence

== ENCOUNTER 2019-08-10 21:17 | Emergency (ER) | payer MEDICARE, OTHER ==
[~2019-08-10] VITALS: Ht 165.1 cm; Wt 182.8 kg
[~2019-08-10 21:17] MED LIST changes: +NAPROSYN500 MG PO
[2019-08-11 00:44] LABS: BILIRUBIN NEGATIVE (NEGATIVE); BLOOD NEGATIVE (NEGATIVE); CLARITY SL CLOUDY (CLEAR); COLOR YELLOW (YELLOW); GLUCOSE 3+ (NEGATIVE); KETONE NEGATIVE (NEGATIVE); LEUKO ESTERASE NEGATIVE (NEGATIVE); NITRITE NEGATIVE (NEGATIVE); PH 5.5 (5.0-9.0); SPECIFIC GRAVITY 1.015 (1.005-1.030); UROBILINOGEN 0.2 E.U./dl (0.2-1.0)
[2019-08-11 01:26] LABS: EPITHELIAL CELLS 15-20; RBC 0-2 rbc/hpf (0-2); WBC 0-2 wbc/hpf (0-5)
== END 2019-08-11 00:53 | disposition home or self-care (01) ==
LOC: ED 21:17
PROVIDERS: Emergency Medicine
DX: M79.7 Fibromyalgia (principal); I12.9 Hypertensive chronic kidney disease with stage 1 through stage 4 chronic kidney disease, or unspecified chronic kidney disease; E11.22 Type 2 diabetes mellitus with diabetic chronic kidney disease; N18.9 Chronic kidney disease, unspecified; E78.5 Hyperlipidemia, unspecified; E03.9 Hypothyroidism, unspecified; F17.200 Nicotine dependence, unspecified, uncomplicated; Z79.899 Other long term (current) drug therapy; Z79.4 Long term (current) use of insulin

== ENCOUNTER 2019-09-03 16:54 | Inpatient (IN) | payer MEDICARE, OTHER ==
[~2019-09-03] VITALS: Ht 165.1 cm; Wt 178.0 kg
--- NOTE | ~2019-09-03 | EKG ---
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
--- NOTE | ~2019-09-03 | PR ---
[place], [place] PROGRESS NOTE NAME: THOMAS FREEMAN UNIT #: [id number] ROOM: [facility] DOCTOR: TIMMY MARIO MD,TESSY BIRTHDATE: [birth year] DOS: 09/06/2019 SUBJECTIVE: The patient was noted comfortable at this time, resting in the bed, has not been reported any symptoms of fever or chills. The edema in lower extremity is resolving. Shortness of breath is improving. She has used the BiPAP last night as ordered. OBJECTIVE: VITAL SIGNS: This morning, normal temperature, respiratory rate of 18, heart rate of 58, blood pressure 110/78. Intake 1688 mL, output 9.750 liters. Negative of 8 liters recorded. Pulse oxygen saturation on 2 liters nasal cannula 99% saturation. HEENT: Examination shows chronic severe obesity. NECK: Supple. Head was atraumatic. CARDIOVASCULAR: S1, S2 is audible. LUNGS: The patient was noted without any wheeze or crackles today. ABDOMEN: Soft, nontender. Bowel sounds present. EXTREMITIES: With chronic lymphedema, superimposed edema, which was resolving. IMPRESSION: 1. The patient with improving congestive heart failure, peripheral edema and other respiratory symptoms including congestive heart failure. 2. Severe morbid obesity. 3. Obstructive sleep apnea disorder. 4. History of systemic lupus erythematosus and other illnesses. PLAN OF MANAGEMENT: No change in plan of management at this time will be needed. Continue other therapy as ongoing. Usual care. TESSY WARNER MD CM:PNTRANS [id number] TESSY MARIO MD 09/06/19 1413 interface
--- NOTE | ~2019-09-03 | EKG ---
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
--- NOTE | ~2019-09-03 | EKG ---
[place], [place] ELECTROCARDIOGRAM REPORT NAME: THOMAS FREEMAN UNIT #: [id number] ROOM: [facility] DOCTOR: MARC DRAFT REPORT BIRTHDATE: [birth year] [facility] Test Date: 2019-09-03 Test Time: 20:31:15 Pat Name: THOMAS FREEMAN Department: Room: [facility] Gender: F Barrel Cooper: Sandro Rangel : 1975 Requested By: STACIE MASON Order Number: [id number] Reading MD: Addis Patricio MD Measurements Intervals [place] Rate: 51 P: -47 DE: 115 QRS: 47 QRSD: 77 T: 17 QT: 441 QTc: 407 Interpretive Statements Sinus or ectopic atrial rhythm Borderline short [place] interval Baseline wander in lead(s) V5,V6 Compared to ECG 02/09/2019 19:22:09 Ectopic atrial rhythm now present Sinus rhythm no longer present Early repolarization no longer present Electronically Signed On 09-06-2019 9:59:15 PDT by Addis Patricio MD CM:EKGRPT:ELECTROCARDIOGRAM REPORT [id number] STACIE POLLACK DRAFT REPORT STACIE MASON DO
--- NOTE | ~2019-09-03 | CON ---
[place], [place] REPORT OF CONSULTATION NAME: THOMAS FREEMAN UNIT #: [id number] ROOM: [facility] DOCTOR: TESSY DIAZ MD BIRTHDATE: [birth year] DOS: 09/04/2019 PULMONARY CONSULTATION EVALUATION AND MANAGEMENT CONSULTATION REQUESTED BY: Hospitalist service. REASON FOR CONSULTATION: For assessment of the current abnormal respiratory symptoms. HISTORY OF PRESENT ILLNESS: This is a 44-year-old female patient who has been known to me from the office visit as well. She has been noted with history of obstructive sleep apnea disorder with chronic severe morbid obesity. 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 She had been admitted to the hospital under care of the hospitalist service on the date of 09/03/2019. The patient has been reported symptoms of getting edema of the lower extremities, increased shortness of breath. The patient has been noted with past history of thromboembolism, deep venous thrombosis of the lower extremities in 2013. She has been given the Xarelto, resulting in severe gastrointestinal bleeding, so it was discontinued later on. The patient has been given the Lovenox for as an anticoagulant. The patient has been seen in the [facility] for assessment of lower extremity were noted progressive edema in lower extremities was suggested to be admitted to the hospital. The patient was admitted to the hospital for further care. She denies symptoms of coughing or chest pain. Denies symptoms of hemoptysis. The patient reported reduction of the minimal reduction of symptoms of shortness breath still noted significant edema in lower extremity. Diuresis was continued. REVIEW OF SYSTEMS: CONSTITUTIONAL: Fatigue and tiredness noted without any symptoms of fever or chills. EYES: Denies any burning, redness, or tenderness. EARS, NOSE, THROAT, EAR, NOSE, THROAT SYMPTOMS: No sore throat, hoarseness, otalgia, postnasal drainage or epistaxis. CARDIOVASCULAR: Denies any palpitation or orthopnea. Noted progressive edema of the lower extremity with chronic lymphedema noted as well. GASTROINTESTINAL: Dysphagia, nausea, vomiting, diarrhea, abdominal pain, hematemesis, melena, or hematochezia. SKIN: Denies any lesions or rash except dryness of skin of the lower extremity and other superficial wound of the lower extremities, managed by the wound director of event management. GENITOURINARY: No dysuria, urinary incontinence or suprapubic pain. MUSCULOSKELETAL: No acute joint pain, redness, or tenderness. Remaining systems were reviewed. They were noted all negative. PAST MEDICAL HISTORY: Known with history of: 1. Severe morbid obesity. 2. Obstructive sleep apnea disorder as well that has been diagnosed at this [place], [place] REPORT OF CONSULTATION NAME: THOMAS FREEMAN UNIT #: [id number] ROOM: [facility] DOCTOR: TIMMY MARIO MD,TESSY BIRTHDATE: [birth year] time with a split study was done now and previously known requiring use of the CPAP 10 cm of water. 3. History of neuroma of the posterior mediastinal, status post surgical resection in 01/2019 in the left paraspinal area. 4. History of thromboembolism as well. 5. Previous history of gastrointestinal bleeding. 6. Left breast cancer was known as well. 7. History of nonalcoholic steatohepatitis. 8. Hypothyroidism. 9. History of cancer of the uterus. 10. History of type 2 diabetes mellitus. 11. History of SLE. 12. History of thromboembolism with pulmonary embolism and deep venous thrombosis, lower extremities. Current mild elevation D-dimers were noted. 13. Multiple illnesses and not suggestive of acute thromboembolism. PAST SURGICAL HISTORY: 1. Complete hysterectomy. 2. Hysteroscopy. 3. Ovarian cyst removal. 4. Exploratory laparotomy. 5. Left breast lumpectomy. 6. Thyroid tumor removed in 2005. 7. VATS procedure, left paraspinal tumor removed in 01/2014. SOCIAL HISTORY: She lives at home. Single, has no children. Tobacco use was noted as cigarette smoking from the age of [age] years old, 1 pack of cigarettes per day, still actively used by the patient. FAMILY HISTORY: The patient's father is living 76-year-old with history of essential hypertension. Mother 74 years old, known with history of atrial fibrillation. HOME MEDICATIONS: 1. Use of azathioprine. 2. Benlysta injection 10 mg monthly. 3. Vraylar 3 mg p.o. daily. 4. Vitamin D. 5. Chronic pain. 6. Doxepin. 7. Hydroxychloroquine. 8. Lantus insulin. 9. Synthroid. 10. Omeprazole. 11. Zofran. 12. Prednisone 20 mg daily. 13. Ozempic. 14. Ultram. CURRENT MEDICATIONS: Which were administered on this admission was noted as [place], [place] REPORT OF CONSULTATION NAME: THOMAS FREEMAN UNIT #: [id number] ROOM: [facility] DOCTOR: TIMMY MARIO MD,TESSY BIRTHDATE: [birth year] Aldactone, nicotine, cariprazine, prednisone 20 mg daily, Lasix, Lovenox 180 mg subcutaneous b.i.d., omeprazole, levothyroxine 600 mg b.i.d., doxepin, azathioprine, Klonopin, hydroxyzine, temazepam, and some other meds. DRUG ALLERGIES: Noted no known drug allergies. PHYSICAL EXAMINATION: GENERAL: This is a 44-year-old female patient who has been currently sitting on the bed without any distress. Height of 5 feet 5 inches, weight of 400 pounds, BMI 67.4. VITAL SIGNS: Normal temperature, respirations 18-20, heart rate 75-65, blood pressure 121/66, 127/80 recorded. The pulse oxygen saturation recorded at rest on room air is 98% saturation. HEENT: Examination shows chronic severe obesity. Head was atraumatic. Eyes nonicterus. NECK: Supple. CARDIOVASCULAR: S1, S2 is audible. LUNGS: The patient was noted without any wheezing or crackles. ABDOMEN: Noted massive obesity. Bowel sounds present. EXTREMITIES: Chronic severe lymphedema, superimposed skin changes as well with edema. MUSCULOSKELETAL: No gross deformities. CENTRAL NERVOUS SYSTEM: The patient noted intact. LABORATORY DATA: CBC that was done yesterday on admission as WBC count, hemoglobin and hematocrit all noted normal. Platelet count was normal. Chest x-ray was noted with difficult study, but increased interstitial marking noted, with enlarged pulmonary hilar area with possibility of pulmonary hypertension cannot be excluded. PTT were noted as normal. The CMP ____, normal BUN and creatinine. Potassium 3.2 today. The patient does not have any recent echocardiogram available. IMPRESSION: 1. The patient will be currently admitted to the hospital with history of known obstructive sleep apnea, chronic nicotine abuse. Noted progressive edema of the lower extremity, possibly right-sided congestive heart failure. 2. Possibility of pulmonary hypertension or secondary cause to be considered and excluded. 3. 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 4. History of systemic lupus erythematosus, chronic immunosuppression as well. 5. Severe suprapubic morbid obesity was known as history. 6. Superficial wound of the lower extremities had been treated by wound director of event management. PLAN OF MANAGEMENT: The patient will be continued on the current treatment with diuretic and other treatment with consultation from the Cardiology Services. Diuretics will be continued. Monitoring the electrolytes which will be supplemented by the primary care team, hypokalemia noted, which has already supplemented. Nicotine replacement patches has been ordered to overcome any [place], [place] REPORT OF CONSULTATION NAME: THOMAS FREEMAN UNIT #: [id number] ROOM: [facility] DOCTOR: TIMMY MARIO MD,TESSY BIRTHDATE: [birth year] nicotine withdrawal. Other therapy, plan of management, additional treatment changes will be ordered based on progression of the patient's illness. Supportive care. Other treatment to be continued. Continue Lovenox for the group home management as anticoagulant in the form of the Lovenox preferred by the patient. Certainly, the data was noted extremely limited for Xarelto, others to be used in morbidly obese patient. History of thromboembolic with pulmonary embolism and deep venous thrombosis, lower extremities. Current mild elevation D-dimers were noted. Multiple illnesses and not suggestive of acute thromboembolism. Thanks for allowing me to participate in the care of this patient. TESSY WARNER MD CM:CONSTR:REPORT OF CONSULTATION 1505 09/04/192119 interface
--- NOTE | ~2019-09-03 | PR ---
[place], [place] PROGRESS NOTE NAME: THOMAS FREEMAN UNIT #: [id number] ROOM: [facility] DOCTOR: TESSY DIAZ MD BIRTHDATE: [birth year] DOS: 09/05/2019 SUBJECTIVE: She continued to diurese at this time. The accuracy of fluid balance could not be done since the patient does not have a Huang catheter. She stated that she has been losing weight, lost about 16 pounds of body weight since hospitalization. Denies acute shortness of breath, chest pain or cough. This morning shortness of breath at admission was decreased. OBJECTIVE: VITAL SIGNS: Normal temperature, respiratory rate was recorded as 20, heart rate 73, blood pressure 129/60, and pulse oxygen saturation on 2 liters nasal cannula 96% saturation at rest. HEENT: Head was atraumatic, chronic obesity. NECK: Supple. CARDIOVASCULAR: S1 ____. LUNGS: Noted without any wheeze or crackles. The breaths are noted decreased bilaterally. ABDOMEN: Soft with chronic obesity. EXTREMITIES: Skin of the lower extremities noted with venous stasis pigmentation and edema of lower extremities, superimposed with chronic lymphedema with acute edema. IMPRESSION: 1. The patient with resolving acute congestive heart failure based on weight loss, stated by the patient's current medical management. 2. History of systemic lupus erythematosus. 3. The patient with chronic nicotine abuse as well. 4. Severe morbid obesity. 5. Obstructive sleep apnea disorder. PLAN OF MANAGEMENT: The patient has been ordered BiPAP to be used 12/6 at nighttime and p.r.n. during the day could be used if necessary. Continue diuretics and other medical management. Usual care. Follow the results of the echocardiogram was once performed that was ordered to be done for tomorrow. [place], [place] PROGRESS NOTE NAME: THOMAS FREEMAN UNIT #: [id number] ROOM: [facility] DOCTOR: TESSY DIAZ MD BIRTHDATE: [birth year] TESSY WARNER MD CM:PNTRANS [id number] TESSY MARIO MD 09/05/19 1442 interface
[2019-09-03 17:00] VITALS: BP 148/90
[2019-09-03 17:45] LABS: HEMATOCRIT 43.7 % (37.0-47.0); HEMOGLOBIN 14.4 g/dl (12.0-16.0); MEAN CELL VOLUME 90.3 fl (81.0-99.0); MEAN CORPUSCULAR HGB 29.8 pg (27.0-31.0); MEAN PLATELET VOLUME 11.7 fl (9.6-12.3); PLATELET COUNT AUTOMATED 227 10*3/uL (130-400); RED BLOOD COUNT 4.84 10*6/uL (4.10-5.10); RED CELL DISTRI WIDTH 13.3 % (0-14.5); WHITE BLOOD COUNT 10.4 10*3/uL (4.8-10.8)
[2019-09-03 17:56] LABS: ACT PARTIAL THROMBO TIME 23.6 SECONDS (20.0-32.1)
[2019-09-03 18:01] LABS: ALBUMIN 3.1 gm/dl (3.1-4.5); ALKALINE PHOSPHATASE 153 U/L (45-117); BUN 15 mg/dl (7-24); CHLORIDE 102 mmol/L (98-107); CREATININE 0.83 mg/dL (0.55-1.02); POTASSIUM 4.3 mmol/L (3.5-5.1); SGOT/AST 35 IU/L (3-35); SGPT/ALT 71 U/L (12-78); SODIUM 136 mmol/L (136-145); TOTAL PROTEIN 7.1 gm/dL (6.4-8.2)
[2019-09-03 18:02] LABS: TROPONIN I < 0.015 ng/ml (<0.045)
[2019-09-03 18:04] LABS: PLATELET SUFFICIENCY NORMAL (NORMAL); TOTAL CELLS COUNTED 100 #CELLS
--- NOTE | 2019-09-03 18:43 | NUR ---
SMALL SCRATCH TO POSTERIOR LEFT THIGH NO OPEN AREA NOTED
[2019-09-03 20:00] VITALS: BP 127/80
--- NOTE | 2019-09-03 20:00 | NUR ---
A 44, admitted to 5E, under the services of SULY Lemus DO with a diagnosis of PULMONARY EDEMA. Chief complaint is MULTIPLE COMPLAINTS. Patient arrived via bed from ER. Monitor applied. Initial assessment completed. Vital signs taken and recorded. SULY LEMUS DO notified of admission to the unit. Orders received. See assessment for past medical history, medications and allergies. Patient and/or family oriented to unit. [address] visitation policy reviewed. Clothing/patient valuable form completed. MO WOUNDS PRESENT ON ADMISSION. FLU VACCINE NOT GIVEN, ALREADY RECEIVED 08/27/19. ACE TORO
--- NOTE | 2019-09-03 20:10 | NUR ---
PT REFUSED ELIZABETH EITAN STATES THEY "CAUSE HER TO FORM BLOOD CLOTS" AND THAT SHE WILL "WEAR THE SOCKS AND WRAPS SHE BROUGHT FROM HOME INSTEAD".
--- NOTE | 2019-09-03 20:30 | NUR ---
SMALL RED AREA TO POSTERIOR LEFT THIGH. POSSIBLY THE SITE OF A PREVIOUS "INGROWN HAIR" PER PT. NO OPEN WOUNDS FOUND ON ASSESSMENT.
[2019-09-03] MEDS ORDERED: PREDNISONE20 M1 PO (20:35)
[2019-09-03] MEDS ORDERED: D3-5050000 UNIT PO (20:38)
[2019-09-03] MEDS ORDERED: DOXEPIN HCL10 MG PO (20:39)
[2019-09-03] MEDS ORDERED: VRAYLAR3 MG PO (20:40)
[2019-09-03] MEDS ORDERED: TOUJEO MAX300 UNIT/1 SQ (20:42)
[2019-09-03] MEDS ORDERED: CLONAZEPAM0.5 M2 PO (20:45)
[2019-09-03] MEDS ORDERED: DICYCLOMINE HCL10 MG PO (20:46)
[2019-09-03] MEDS ORDERED: [UNRECOGNIZED DRUG - OTHER] (20:47)
[2019-09-03] MEDS ORDERED: AZASAN50 MG PO (20:49)
--- NOTE | 2019-09-03 22:42 | NUR ---
DR NOTIFIED MED REC UP TO DATE.
[2019-09-04] VITALS: BP 128/75
[2019-09-04 06:22] LABS: BASO % 0.3 % (0.0-1.0); EOS # 0.1 10*3/uL (0.0-0.4); EOS % 0.9 % (1.0-4.0); HEMATOCRIT 43.3 % (37.0-47.0); LYMPH # 0.9 10*3/uL (1.3-4.4); LYMPH % 11.7 % (27.0-41.0); MEAN CELL VOLUME 91.9 fl (81.0-99.0); MEAN CORPUSCULAR HGB 29.7 pg (27.0-31.0); MEAN CORPUSCULAR HGB CONC 32.3 g/dl (33.0-37.0); MEAN PLATELET VOLUME 11.2 fl (9.6-12.3); MONO # 0.3 10*3/uL (0.1-1.0); MONO % 3.7 % (3.0-9.0); NEUT # 6.5 10*3/uL (2.3-7.9); NEUT % 81.9 % (47.0-73.0); PLATELET COUNT AUTOMATED 180 10*3/uL (130-400); RED BLOOD COUNT 4.71 10*6/uL (4.10-5.10); RED CELL DISTRI WIDTH 13.2 % (0-14.5); WHITE BLOOD COUNT 7.9 10*3/uL (4.8-10.8)
[2019-09-04 06:35] LABS: ALBUMIN 3.1 gm/dl (3.1-4.5); ALKALINE PHOSPHATASE 148 U/L (45-117); BUN 16 mg/dl (7-24); CHLORIDE 98 mmol/L (98-107); CHOLESTEROL 159 mg/dL (<200); CREATININE 1.03 mg/dL (0.55-1.02); FREE T4 0.82 ng/dl (0.76-1.46); HDL CHOLESTEROL 57 mg/dl (40-60); LDL CHOLESTEROL 81 mg/dL (9-159); PHOSPHOROUS 4.8 mg/dL (2.5-4.9); SGOT/AST 21 IU/L (3-35); SGPT/ALT 70 U/L (12-78); TOTAL PROTEIN 6.8 gm/dL (6.4-8.2); TRIGLYCERIDES 106 mg/dl (<150); VLDL CHOLESTEROL 21 mg/dL (6-40)
--- NOTE | 2019-09-04 06:41 | NUR ---
NEW PATIENT CONSULT CALLED INTO DR. WARNER.
--- NOTE | 2019-09-04 06:47 | NUR ---
SPOKE WITH EPHRAIM FROM ANSWERING SERVICE FOR DR. FUENTES CONSULT.
[2019-09-04 06:58] LABS: ACT PARTIAL THROMBO TIME 23.1 SECONDS (20.0-32.1)
[2019-09-04 07:10] LABS: SODIUM 138 mmol/L (136-145)
[2019-09-04 07:19] LABS: POTASSIUM 3.2 mmol/L (3.5-5.1)
[2019-09-04 07:43] LABS: VITAMIN D, 25-HYDROXY 22.3 ng/mL (30-100)
[2019-09-04 08:00] VITALS: BP 115/65; BP 116/64
--- NOTE | 2019-09-04 10:38 | NUR ---
JASMYNE PAGEIEN FOR C/O HEADACHE. WILL MONITOR.
--- NOTE | 2019-09-04 11:40 | NUR ---
ULTRAM EFFECTIVE PER PT.
[2019-09-04 12:00] VITALS: BP 121/66
[2019-09-04 16:00] VITALS: BP 124/56
[2019-09-04 20:00] VITALS: BP 126/71
[2019-09-05] VITALS: BP 126/80
[2019-09-05 06:24] LABS: BASO % 1.2 % (0.0-1.0); EOS # 0.1 10*3/uL (0.0-0.4); EOS % 2.5 % (1.0-4.0); HEMATOCRIT 40.3 % (37.0-47.0); HEMOGLOBIN 12.8 g/dl (12.0-16.0); LYMPH # 0.8 10*3/uL (1.3-4.4); LYMPH % 34.9 % (27.0-41.0); MEAN CELL VOLUME 93.7 fl (81.0-99.0); MEAN CORPUSCULAR HGB 29.8 pg (27.0-31.0); MEAN CORPUSCULAR HGB CONC 31.8 g/dl (33.0-37.0); MEAN PLATELET VOLUME 11.2 fl (9.6-12.3); MONO # 0.4 10*3/uL (0.1-1.0); MONO % 14.9 % (3.0-9.0); NEUT # 1.1 10*3/uL (2.3-7.9); NEUT % 45.7 % (47.0-73.0); PLATELET COUNT AUTOMATED 150 10*3/uL (130-400); RED CELL DISTRI WIDTH 13.4 % (0-14.5); WHITE BLOOD COUNT 2.4 10*3/uL (4.8-10.8)
[2019-09-05 06:40] LABS: ALBUMIN 2.8 gm/dl (3.1-4.5); ALKALINE PHOSPHATASE 137 U/L (45-117); BUN 19 mg/dl (7-24); CHLORIDE 98 mmol/L (98-107); CREATININE 0.95 mg/dL (0.55-1.02); POTASSIUM 3.5 mmol/L (3.5-5.1); SGOT/AST 23 IU/L (3-35); SGPT/ALT 59 U/L (12-78); SODIUM 138 mmol/L (136-145); TOTAL PROTEIN 6.4 gm/dL (6.4-8.2)
[2019-09-05 08:00] VITALS: BP 108/62
--- NOTE | 2019-09-05 08:30 | NUR ---
DR CHERRY ROUNDED.ORDERS RECIEVED.
[2019-09-05 12:00] VITALS: BP 129/60
[2019-09-05 12:04] LABS: BILIRUBIN NEGATIVE (NEGATIVE); BLOOD NEGATIVE (NEGATIVE); CLARITY SL CLOUDY (CLEAR); COLOR YELLOW (YELLOW); GLUCOSE NEGATIVE (NEGATIVE); KETONE NEGATIVE (NEGATIVE); LEUKO ESTERASE NEGATIVE (NEGATIVE); NITRITE NEGATIVE (NEGATIVE); PH 5.5 (5.0-9.0); SPECIFIC GRAVITY >= 1.030 (1.005-1.030); UROBILINOGEN 0.2 E.U./dl (0.2-1.0)
[2019-09-05 16:00] VITALS: BP 122/58
[2019-09-05 20:00] VITALS: BP 117/47
--- NOTE | 2019-09-05 20:05 | NUR ---
PATIENT RESTING IN BED WATCHING TV. DENIES NEEDS OR PAIN AT THIS TIME. BED IN LOWEST POSITION, CALL LIGHT IN REACH
[2019-09-06] VITALS: BP 125/64
[2019-09-06 06:54] LABS: BASO % 0.9 % (0.0-1.0); EOS # 0.1 10*3/uL (0.0-0.4); HEMATOCRIT 43.8 % (37.0-47.0); HEMOGLOBIN 14.1 g/dl (12.0-16.0); LYMPH # 1.3 10*3/uL (1.3-4.4); LYMPH % 38.1 % (27.0-41.0); MEAN CELL VOLUME 92.6 fl (81.0-99.0); MEAN CORPUSCULAR HGB 29.8 pg (27.0-31.0); MEAN CORPUSCULAR HGB CONC 32.2 g/dl (33.0-37.0); MEAN PLATELET VOLUME 11.3 fl (9.6-12.3); MONO # 0.4 10*3/uL (0.1-1.0); MONO % 12.4 % (3.0-9.0); NEUT # 1.5 10*3/uL (2.3-7.9); NEUT % 45.3 % (47.0-73.0); PLATELET COUNT AUTOMATED 154 10*3/uL (130-400); RED BLOOD COUNT 4.73 10*6/uL (4.10-5.10); WHITE BLOOD COUNT 3.3 10*3/uL (4.8-10.8)
[2019-09-06 07:07] LABS: BUN 17 mg/dl (7-24); CHLORIDE 95 mmol/L (98-107); CREATININE 0.89 mg/dL (0.55-1.02); POTASSIUM 3.4 mmol/L (3.5-5.1); SODIUM 138 mmol/L (136-145)
[2019-09-06 08:00] VITALS: BP 110/78
--- NOTE | 2019-09-06 09:41 | NUR ---
BIPAP OFF, PT USES AT [facility]
[2019-09-06 12:00] VITALS: BP 124/67
[2019-09-06] MEDS ORDERED: ALDACTONE25 MG PO (14:16)
[2019-09-06] MEDS ORDERED: LASIX20 MG PO (14:16)
--- NOTE | 2019-09-06 14:16 | NUR ---
Lead Housekeeper in to talk to patient. Patient states lives at HOME with NO. There are NO steps in the home. Physician: LA NENA BRASHER Pharmacy: [facility] Home health services: NONE Patient's level of ADLs: INDEPENDENT Patient has working utilities: YES DME: OXYGEN AND CPAP. [employer] Follow-up physician's appointment after d/c: WILL BE MADE BY HOSPITALIST ON DISCHARGE. Does patient want to access PORTAL?: NO Discharge plan PT LIVES AT HOME ALONE AND IS INDEPENDENT IN HER CARE. DENIES SHE WILL HAVE ANY NEEDS ON DISCHARGE. WILL RETURN HOME WHEN MEDICALLY STABLE. WILL CONTINUE TO FOLLOW. WILL HAVE A RIDE HOME PER PT.. GONZÁLEZ ROE
--- NOTE | 2019-09-06 15:57 | NUR ---
Discharge instructions reviewed with patient/family. Patient receptive and verbalizes understanding. Follow-up care arranged. Written instructions given to patient/family. ANKIT LORA
== END 2019-09-06 15:57 | disposition home or self-care (01) | DRG 291 ==
LOC: ED 16:54 → EDHOLD 18:30 → 5E 18:30
PROVIDERS: Family Medicine; Internal Medicine; Student in an Organized Health Care Education/Training Program; ADMIT Emergency Medicine
PROC: 5A09357 Assistance with Respiratory Ventilation, Less than 24 Consecutive Hours, Continuous Positive Airway Pressure (ICD-10-PCS; principal; 2019-09-06)
DX: I13.0 Hypertensive heart and chronic kidney disease with heart failure and stage 1 through stage 4 chronic kidney disease, or unspecified chronic kidney disease (principal); I50.31 Acute diastolic (congestive) heart failure; Z68.44 Body mass index [BMI] 60.0-69.9, adult; M79.7 Fibromyalgia; D72.810 Lymphocytopenia; E80.6 Other disorders of bilirubin metabolism; I89.0 Lymphedema, not elsewhere classified; F41.9 Anxiety disorder, unspecified; E66.01 Morbid (severe) obesity due to excess calories; E03.9 Hypothyroidism, unspecified; N18.9 Chronic kidney disease, unspecified; M32.9 Systemic lupus erythematosus, unspecified; E11.22 Type 2 diabetes mellitus with diabetic chronic kidney disease; E78.5 Hyperlipidemia, unspecified; K75.81 Nonalcoholic steatohepatitis (NASH); E55.9 Vitamin D deficiency, unspecified; E87.6 Hypokalemia; R00.1 Bradycardia, unspecified; E28.2 Polycystic ovarian syndrome; G47.33 Obstructive sleep apnea (adult) (pediatric); E11.65 Type 2 diabetes mellitus with hyperglycemia; F31.9 Bipolar disorder, unspecified; S80.922A Unspecified superficial injury of left lower leg, initial encounter; S80.921A Unspecified superficial injury of right lower leg, initial encounter; X58.XXXA Exposure to other specified factors, initial encounter; Y93.89 Activity, other specified; Y92.89 Other specified places as the place of occurrence of the external cause; Y99.8 Other external cause status; Z86.718 Personal history of other venous thrombosis and embolism; Z86.711 Personal history of pulmonary embolism; Z90.49 Acquired absence of other specified parts of digestive tract; Z90.710 Acquired absence of both cervix and uterus; Z87.891 Personal history of nicotine dependence; Z82.49 Family history of ischemic heart disease and other diseases of the circulatory system; Z79.899 Other long term (current) drug therapy; Z79.52 Long term (current) use of systemic steroids; Z85.3 Personal history of malignant neoplasm of breast; Z85.42 Personal history of malignant neoplasm of other parts of uterus

== ENCOUNTER 2019-09-12 11:39 | Inpatient (IN) | payer MEDICARE, OTHER ==
[~2019-09-12] VITALS: Ht 165.1 cm; Wt 183.5 kg
[~2019-09-12 11:39] MED LIST changes: +ALDACTONE25 MG PO; +AZASAN50 MG PO; +CLONAZEPAM0.5 M2 PO; +D3-5050000 UNIT PO; +DICYCLOMINE HCL10 MG PO; +DOXEPIN HCL10 MG PO; +LASIX20 MG PO; +PREDNISONE20 M1 PO; +TOUJEO MAX300 UNIT/1 SQ; +VRAYLAR3 MG PO; +[UNRECOGNIZED DRUG - OTHER]
[2019-09-12 11:43] VITALS: BP 167/76
[2019-09-12] MEDS ORDERED: ATORVASTATIN CA40 M1 PO (11:49)
[2019-09-12] MEDS ORDERED: NOVOLOG FL100 UNIT/2 SQ (11:49)
[2019-09-12] MEDS ORDERED: QUINAPRIL5 MG PO (11:50)
[2019-09-12 12:45] LABS: HEMATOCRIT 41.4 % (37.0-47.0); HEMOGLOBIN 13.5 g/dl (12.0-16.0); MEAN CELL VOLUME 92.4 fl (81.0-99.0); MEAN CORPUSCULAR HGB 30.1 pg (27.0-31.0); MEAN CORPUSCULAR HGB CONC 32.6 g/dl (33.0-37.0); MEAN PLATELET VOLUME 11.2 fl (9.6-12.3); PLATELET COUNT AUTOMATED 188 10*3/uL (130-400); RED BLOOD COUNT 4.48 10*6/uL (4.10-5.10); RED CELL DISTRI WIDTH 13.6 % (0-14.5); WHITE BLOOD COUNT 5.5 10*3/uL (4.8-10.8)
[2019-09-12 13:02] LABS: BUN 13 mg/dl (7-24); CHLORIDE 104 mmol/L (98-107); CREATININE 0.87 mg/dL (0.55-1.02); POTASSIUM 4.8 mmol/L (3.5-5.1); SODIUM 136 mmol/L (136-145)
[2019-09-12 13:06] LABS: TROPONIN I < 0.015 ng/ml (<0.045)
[2019-09-12 13:09] LABS: BASOPHILS 2 % (0-1); PLATELET SUFFICIENCY NORMAL (NORMAL); TOTAL CELLS COUNTED 100 #CELLS
[2019-09-12 13:55] VITALS: BP 102/61
[2019-09-12 14:19] LABS: ACT PARTIAL THROMBO TIME 24.1 SECONDS (20.0-32.1); INTERNATIONAL NORM RATIO 0.9 (2.0-3.5)
[2019-09-12 16:00] VITALS: BP 139/79
[2019-09-12 17:17] LABS: FREE T4 1.21 ng/dl (0.76-1.46)
--- NOTE | 2019-09-12 17:18 | NUR ---
PT ATTEMPTING TO GO OUTSIDE WITH IV IN HER ARM WE EXPLAINED TO PT SHE IS NOT ALLOWED OUT WITH IV IN. PT GOT ANGRY AND SAID I HAVE PTS RIGHTS TO GO OUT TO SMOKE. I EXPLAINED NOT WITH IV IN HER ARM PT ESCORTED BACK TO ROOM AND HER NURSE WAS NOTIFED. PT WAS VERY ANGRY AND STATED "YOU WONDER WHY PEOPLE SMOKE IN THERI ROOMS UPSTAIRS".
[2019-09-12 17:22] LABS: THYROID STIM HORMONE (HS) 1.15 uIU/ml (0.358-4.75)
--- NOTE | 2019-09-12 17:23 | NUR ---
PT AMBULATING OUT ER DOORS. CAUGHT BY SECUIRTY. PT STATES, "IT'S MY RIGHT TO GO ACROSS THE STREET AND SMOKE." PT BACK IN ROOM. RN ADVISED PT SHE CANNOT LEAVE THE FACILITY WITH AN IV IN AND HOSPIAL IS SMOKE FREE FACILITY. PT STATES AGAIN, "IT'S MY RIGHT. TAKE MY IV OUT." RN EXPLAINED TO PT IF IV IS TAKEN OUT AND PT LEAVES FACILITY SHE IS TO SIGN OUT AMA. PT STATES, "THAT'S AGAINST MY RIGHTS." PT IS COOPERATIVE, BUT DISAGREEABLE. IN THE PROCESS OF TAKING HER UPSTAIRS FOR ADMISSION.
--- NOTE | 2019-09-12 18:25 | NUR ---
A 44, admitted to , under the services of LOKESH Davila DO with a diagnosis of B/L PULMONARY EMBOLISM. Chief complaint is BASIC OTHER. Patient arrived via bed from ER. Monitor applied. Initial assessment completed. Vital signs taken and recorded. LOKESH DAVILA DO notified of admission to the unit. Orders received. See assessment for past medical history, medications and allergies. Patient and/or family oriented to unit. [facility] visitation policy reviewed. Clothing/patient valuable form completed. TANK GUZMAN
[2019-09-12 18:29] VITALS: BP 149/76
[2019-09-12] MEDS ORDERED: PROBIOTIC1 EACH PO (18:54)
--- NOTE | 2019-09-12 19:31 | NUR ---
PATIENT RESTING IN BED EATING AND WATCHING TV. DENIES PAIN OR SHORTNESS OF BREATH AT THIS TIME. CALL LIGHT ENCOURAGE, BED IN LOW POSITION
[2019-09-12 20:00] VITALS: BP 139/79
--- NOTE | 2019-09-12 21:16 | NUR ---
DR MENDOZA AWARE OF PATIENT REQUESTING HOME MEDICATIONS. STATES HE WILL PUT THEM IN
--- NOTE | 2019-09-12 22:11 | NUR ---
PATIENT MEDICATED WITH PRN KLONOPIN FOR ANXIOUSNESS AND ULTRAM FOR PAIN. WILL MONITOR
[2019-09-13] VITALS: BP 125/71
--- NOTE | 2019-09-13 03:45 | NUR ---
24 HR chart check completed.
[2019-09-13 06:40] LABS: BASO % 0.5 % (0.0-1.0); EOS % 0.5 % (1.0-4.0); HEMATOCRIT 42.8 % (37.0-47.0); HEMOGLOBIN 13.8 g/dl (12.0-16.0); LYMPH # 0.8 10*3/uL (1.3-4.4); MEAN CELL VOLUME 90.9 fl (81.0-99.0); MEAN CORPUSCULAR HGB 29.3 pg (27.0-31.0); MEAN CORPUSCULAR HGB CONC 32.2 g/dl (33.0-37.0); MEAN PLATELET VOLUME 11.4 fl (9.6-12.3); MONO # 0.3 10*3/uL (0.1-1.0); MONO % 4.9 % (3.0-9.0); NEUT # 5.3 10*3/uL (2.3-7.9); NEUT % 80.7 % (47.0-73.0); PLATELET COUNT AUTOMATED 207 10*3/uL (130-400); RED BLOOD COUNT 4.71 10*6/uL (4.10-5.10); RED CELL DISTRI WIDTH 13.1 % (0-14.5); WHITE BLOOD COUNT 6.6 10*3/uL (4.8-10.8)
--- NOTE | 2019-09-13 07:20 | NUR ---
ARRIVED ON SHIFT, BEDSIDE REPORT RECEIVED, WHITE BOARD UPDATED, NO NEEDS VOICED AT THIS TIME.
[2019-09-13 07:23] LABS: BUN 13 mg/dl (7-24); CHLORIDE 99 mmol/L (98-107); POTASSIUM 4.3 mmol/L (3.5-5.1); SODIUM 135 mmol/L (136-145)
[2019-09-13 07:26] LABS: CREATININE 0.89 mg/dL (0.55-1.02)
[2019-09-13 08:00] VITALS: BP 110/70
--- NOTE | 2019-09-13 08:29 | NUR ---
Shift chart check completed.
[2019-09-13 12:00] VITALS: BP 147/77
--- NOTE | 2019-09-13 12:23 | NUR ---
Value Engineer in to talk to patient. Patient states lives at HOME with ALONE. There are NO steps in the home. Physician: SULY BRASHER Pharmacy: [facility] Home health services: NONE Patient's level of ADLs: INDEPENDENT Patient has working utilities: YES DME: STATES SHE HAS OXYGEN, NEBULIZER, WALKER SHE USES AT TIME Follow-up physician's appointment after d/c: WILL BE MADE BY HOSPITALIST NURSE DIRECTOR ON DISCHARGE Does patient want to access PORTAL?: NO Discharge plan PT STATES SHE LIVES AT HOME ALONE AND IS INDEPENDENT IN HER CARE. STATES SHE WOULD LIKE TO GO HOME WITH HOME HEALTH. GAVE HER LIST OF COMPANIES AND SHE WANTS COUNTS INCLUDE 234 BEDS AT THE [facility]. STATES SHE HAS A WALKER SHE USES WHEN HER LUPUS ACTS UP. ALSO STATES SHE HAS OXYGEN THAT SHE USES OFF AND ON AND A NEBULIZER. WILL CONTINUE TO FOLLOW. WILL HAVE A RIDE HOME PER PT.. GONZÁLEZ ROE
[2019-09-13 16:00] VITALS: BP 118/59
[2019-09-13 20:00] VITALS: BP 117/58
--- NOTE | 2019-09-13 21:10 | NUR ---
PATIENT MEDICATED WITH PRN KLONOPIN FOR C/O ANXIOUSNESS, AND ULTRAM FOR C/O PAIN. WILL MONITOR
[2019-09-14] VITALS: BP 129/82
[2019-09-14 06:34] LABS: BUN 14 mg/dl (7-24); CHLORIDE 101 mmol/L (98-107); POTASSIUM 4.4 mmol/L (3.5-5.1); SODIUM 138 mmol/L (136-145)
--- NOTE | 2019-09-14 07:30 | NUR ---
Shift chart check completed.
--- NOTE | 2019-09-14 07:30 | NUR ---
ARRIVED ON SHIFT, PATIENT RESTING QUIETLY WITH EYES CLOSED, DID NOT AWAKEN FOR BEDSIDE REPORT, WHITE BOARD UPDATED.
[2019-09-14] MEDS ORDERED: HYDROCORTISONE10 MG PO (07:34)
[2019-09-14] MEDS ORDERED: LOVENOX120 MG/0.8 SC (07:34)
--- NOTE | 2019-09-14 10:20 | NUR ---
Discharge instructions reviewed with patient. Patient receptive and verbalizes understanding. Follow-up care arranged. Written instructions given to patient. IV REMOVED, TAKEN OUT BY W/C BY HOSPITAL STAFF. MONO MELO
--- NOTE | 2019-09-14 10:43 | NUR ---
REFERRAL AND FACE TO FACE FAXED TO [facility].
== END 2019-09-14 10:20 | disposition home health service (06) | DRG 176 ==
LOC: ED 11:39 → 5E 16:44 → EDHOLD 16:44 → 5E 16:59
PROVIDERS: Emergency Medicine; Family Medicine; Internal Medicine; ADMIT Internal Medicine
DX: I26.99 Other pulmonary embolism without acute cor pulmonale (principal); I13.0 Hypertensive heart and chronic kidney disease with heart failure and stage 1 through stage 4 chronic kidney disease, or unspecified chronic kidney disease; Z68.44 Body mass index [BMI] 60.0-69.9, adult; M32.9 Systemic lupus erythematosus, unspecified; E66.01 Morbid (severe) obesity due to excess calories; I50.9 Heart failure, unspecified; M79.7 Fibromyalgia; F41.9 Anxiety disorder, unspecified; F31.9 Bipolar disorder, unspecified; N18.9 Chronic kidney disease, unspecified; E78.5 Hyperlipidemia, unspecified; E03.9 Hypothyroidism, unspecified; E11.65 Type 2 diabetes mellitus with hyperglycemia; I89.0 Lymphedema, not elsewhere classified; E11.22 Type 2 diabetes mellitus with diabetic chronic kidney disease; Z90.710 Acquired absence of both cervix and uterus; Z90.49 Acquired absence of other specified parts of digestive tract; Z79.899 Other long term (current) drug therapy; Z79.4 Long term (current) use of insulin; Z85.42 Personal history of malignant neoplasm of other parts of uterus; Z86.718 Personal history of other venous thrombosis and embolism; Z82.49 Family history of ischemic heart disease and other diseases of the circulatory system; Z72.0 Tobacco use; Z71.6 Tobacco abuse counseling

== ENCOUNTER 2019-09-19 10:58 | Emergency (ER) | payer MEDICARE, OTHER ==
[~2019-09-19] VITALS: Ht 165.1 cm; Wt 181.9 kg
[~2019-09-19 10:58] MED LIST changes: +ATORVASTATIN CA40 M1 PO; +HYDROCORTISONE10 MG PO; +LOVENOX120 MG/0.8 SC; +NOVOLOG FL100 UNIT/2 SQ; +PROBIOTIC1 EACH PO; +QUINAPRIL5 MG PO
== END 2019-09-19 12:32 | disposition home or self-care (01) ==
LOC: ED 10:58
DX: M79.671 Pain in right foot (principal); I26.99 Other pulmonary embolism without acute cor pulmonale; E66.01 Morbid (severe) obesity due to excess calories; E78.5 Hyperlipidemia, unspecified; E03.9 Hypothyroidism, unspecified; I12.9 Hypertensive chronic kidney disease with stage 1 through stage 4 chronic kidney disease, or unspecified chronic kidney disease; E11.22 Type 2 diabetes mellitus with diabetic chronic kidney disease; N18.9 Chronic kidney disease, unspecified; Z79.01 Long term (current) use of anticoagulants; Z79.4 Long term (current) use of insulin; Z86.711 Personal history of pulmonary embolism; Z68.44 Body mass index [BMI] 60.0-69.9, adult; Z90.49 Acquired absence of other specified parts of digestive tract; Z90.710 Acquired absence of both cervix and uterus; X50.1XXA Overexertion from prolonged static or awkward postures, initial encounter; Y93.E9 Activity, other interior property and clothing maintenance; Y92.098 Other place in other non-institutional residence as the place of occurrence of the external cause; Y99.8 Other external cause status

== ENCOUNTER 2019-10-02 23:01 | Emergency (ER) | payer MEDICARE, OTHER ==
[~2019-10-02] VITALS: Ht 165.1 cm; Wt 185.1 kg
== END 2019-10-03 | disposition home or self-care (01) ==
LOC: ED 23:01
DX: M79.7 Fibromyalgia (principal); G89.29 Other chronic pain; M32.9 Systemic lupus erythematosus, unspecified; E11.22 Type 2 diabetes mellitus with diabetic chronic kidney disease; I12.9 Hypertensive chronic kidney disease with stage 1 through stage 4 chronic kidney disease, or unspecified chronic kidney disease; N18.9 Chronic kidney disease, unspecified; E78.5 Hyperlipidemia, unspecified; E03.9 Hypothyroidism, unspecified; E66.01 Morbid (severe) obesity due to excess calories; F17.200 Nicotine dependence, unspecified, uncomplicated; Z79.899 Other long term (current) drug therapy; Z79.4 Long term (current) use of insulin

== ENCOUNTER 2019-10-04 10:51 | Emergency (ER) | payer MEDICARE, OTHER ==
[2019-10-04 11:40] LABS: HEMATOCRIT 40.2 % (37.0-47.0); MEAN CELL VOLUME 90.5 fl (81.0-99.0); MEAN CORPUSCULAR HGB 29.3 pg (27.0-31.0); MEAN CORPUSCULAR HGB CONC 32.3 g/dl (33.0-37.0); MEAN PLATELET VOLUME 11.2 fl (9.6-12.3); PLATELET COUNT AUTOMATED 223 10*3/uL (130-400); RED BLOOD COUNT 4.44 10*6/uL (4.10-5.10); RED CELL DISTRI WIDTH 14.3 % (0-14.5); WHITE BLOOD COUNT 2.1 10*3/uL (4.8-10.8)
[2019-10-04 12:00] LABS: ATYPICAL LYMPHS 9 % (0-0); BASOPHILS 3 % (0-1); TOTAL CELLS COUNTED 100 #CELLS
[2019-10-04 12:01] LABS: ALBUMIN 2.8 gm/dl (3.1-4.5); ALKALINE PHOSPHATASE 159 U/L (45-117); BUN 9 mg/dl (7-24); CHLORIDE 103 mmol/L (98-107); CREATININE 0.98 mg/dL (0.55-1.02); PLATELET SUFFICIENCY NORMAL (NORMAL); POTASSIUM 4.5 mmol/L (3.5-5.1); SGOT/AST 29 IU/L (3-35); SGPT/ALT 48 U/L (12-78); SODIUM 134 mmol/L (136-145); TOTAL PROTEIN 6.8 gm/dL (6.4-8.2)
== END 2019-10-04 12:21 | disposition home or self-care (01) ==
LOC: ED 10:51
PROVIDERS: Emergency Medicine
DX: G89.29 Other chronic pain (principal); E11.65 Type 2 diabetes mellitus with hyperglycemia; D72.819 Decreased white blood cell count, unspecified; M32.9 Systemic lupus erythematosus, unspecified; M79.7 Fibromyalgia; E11.22 Type 2 diabetes mellitus with diabetic chronic kidney disease; I12.9 Hypertensive chronic kidney disease with stage 1 through stage 4 chronic kidney disease, or unspecified chronic kidney disease; N18.9 Chronic kidney disease, unspecified; E78.5 Hyperlipidemia, unspecified; E03.9 Hypothyroidism, unspecified; E66.01 Morbid (severe) obesity due to excess calories; F17.200 Nicotine dependence, unspecified, uncomplicated; Z68.44 Body mass index [BMI] 60.0-69.9, adult; Z86.711 Personal history of pulmonary embolism; Z79.899 Other long term (current) drug therapy; Z79.4 Long term (current) use of insulin; Z90.710 Acquired absence of both cervix and uterus; Z90.49 Acquired absence of other specified parts of digestive tract

== ENCOUNTER 2019-10-08 13:01 | Inpatient (IN) | payer MEDICARE, OTHER ==
[~2019-10-08] VITALS: Ht 165.1 cm; Wt 186.1 kg
--- NOTE | ~2019-10-08 | CON ---
[place], [place] REPORT OF CONSULTATION NAME: THOMAS FREEMAN UNIT #: [id number] ROOM: 406 DOCTOR: MACEY MATHIS BIRTHDATE: [birth year] DOS: 10/09/2019 CARDIOLOGY CONSULTATION REQUESTING PHYSICIAN: Dr. Saurabh Reece. REASON FOR CONSULTATION: Chest pain. HISTORY OF PRESENT ILLNESS: A 44-year-old female with history of systemic lupus erythematosus; multiple PEs, on anticoagulation; diabetes; morbid obesity; lymphedema; presents for evaluation of chest pain. The patient describes a substernal chest tightness, nonexertional, occasionally radiating towards the right side of the chest, last 10-15 minutes and resolved on its own. No specific aggravating or relieving factors. Not associated with nausea or diaphoresis. She does get short of breath with exertion, which is chronic. She also notes worsening lower extremity edema as well as upper extremity edema. She also has pain in her arms and legs. She states she has had multiple lupus flares in the past few months. Three sets of troponins were negative. EKG just showed some nonspecific ST changes. We are consulted for further evaluation. She has previously been seen by my partner, Dr. Addis Patricio last month and earlier this year for atypical chest pain. She has had cardiac catheterization in the past, once in 2013, one sometime before that, which she states were unremarkable and she never required any intervention. She had an echocardiogram last month, which showed normal LVEF of 60% with normal wall motion, RV was normal with trace MR and no pericardial effusion. REVIEW OF SYSTEMS: Negative except as described above. PAST MEDICAL HISTORY: Lupus, obesity, history of PE, history of DVT, hypothyroidism, lymphedema, anxiety, bipolar disorder and depression, hypertension and type 2 diabetes. PAST SURGICAL HISTORY: Includes cholecystectomy, hysterectomy, mass removed from the left lung. SOCIAL HISTORY: Current smoker, denies alcohol or drug use. Smokes a pack a day. FAMILY HISTORY: Notable for coronary artery disease in the mother and hypertension in her father. HOME MEDICATIONS: Include atorvastatin 40 mg daily as well as Cariprazine, vitamin D3, dicyclomine, hydroxychloroquine, insulin, probiotic, levothyroxine, naltrexone, omeprazole, ondansetron, quinapril and semaglutide. She was on apixaban 5 mg b.i.d. [place], [place] REPORT OF CONSULTATION NAME: THOMAS FREEMAN UNIT #: [id number] ROOM: 406 DOCTOR: MACEY MATHIS BIRTHDATE: [birth year] PHYSICAL EXAMINATION: VITAL SIGNS: Temperature 99.4, pulse 104, respirations 16, blood pressure 128/55, saturating 97% on room air. GENERAL APPEARANCE: She is a morbidly obese young female sitting up in bed, in no distress. ENT: Shows moist mucous membranes. NECK: Supple. JVP is normal. There are no carotid bruits. RESPIRATORY: Lungs are clear. CARDIOVASCULAR: Regular rhythm with a borderline tachycardic rate. There are no appreciable murmurs. There is substernal chest wall tenderness, though she states it is different than her presenting pain. ABDOMEN: Obese. Soft, nontender. EXTREMITIES: Show severe nonpitting edema bilaterally and skin thickening. NEUROLOGIC: Nonfocal. LABORATORY DATA: White blood cell count 2.3, hemoglobin 12.1, platelets 221. Potassium 3.7, creatinine 0.93. Three sets of troponins negative. CRP of 8.82. CT of the chest without contrast showed a left thyroid nodule, small paratracheal lymph nodes. Heart was normal without any pericardial effusion, no pleural effusion. Lungs were clear. Lower extremity ultrasound negative for DVT. EKG showed sinus rhythm at 89 beats per minute, normal axis with normal intervals. Nonspecific ST changes and T-wave abnormalities that appear new compared to last month. IMPRESSION: 1. Somewhat atypical chest pain in a patient with multiple cardiovascular risk factors including obesity, diabetes, autoimmune disease. Troponins have been negative, nonspecific EKG changes which are, however, different from prior EKGs. 2. Morbid obesity. 3. Lupus. 4. Hypertension. 5. Diabetes. 6. History of deep venous thromboses and pulmonary emboli, on apixaban currently. 7. Lymphedema. 8. Smoker. 9. Hypothyroidism. 10. Fibromyalgia/depression and anxiety. RECOMMENDATIONS: 1. Agree with proceeding with dobutamine stress echocardiogram, which will be performed on Friday. Currently, no evidence of acute coronary syndrome. She has some nonspecific ST changes. History does not seem consistent with pericarditis either. She does have multiple risk factors for coronary artery disease. Last cardiac catheterization was in 2013. 2. Dobutamine stress echo on Friday. 3. Aggressive risk factor modification. [place], [place] REPORT OF CONSULTATION NAME: THOMSA FREEMAN UNIT #: [id number] ROOM: [facility] DOCTOR: MACEY MATHIS BIRTHDATE: [birth year] 4. Continue current medications. Her edema is improving with IV furosemide. Dr. MACEY MATHIS MD CM:CONSTR:REPORT OF CONSULTATION 1252 10/09/19 1318 interface
--- NOTE | ~2019-10-08 | EKG ---
[place], [place] ELECTROCARDIOGRAM REPORT NAME: THOMAS FREEMAN UNIT #: [id number] ROOM: 406 DOCTOR: MARC DRAFT REPORT BIRTHDATE: [birth year] [facility] Test Date: 2019-10-08 Test Time: 16:14:57 Pat Name: THOMAS FREEMAN Department: Room: [facility] 1 Gender: F Olive Picker: Lorelei Ambriz : 1975 Requested By: JESICA FIERRO Order Number: [id number] Reading MD: Randall Alcaraz MD Measurements Intervals [place] Rate: 89 P: 30 MD: 137 QRS: 26 QRSD: 74 T: 3 QT: 329 QTc: 401 Interpretive Statements Sinus rhythm Nonspecific ST T changes Electronically Signed On 10-09-2019 7:03:35 PST by Randall Alcaraz MD CM:EKGRPT:ELECTROCARDIOGRAM REPORT [id number] JESICA TRAN DRAFT REPORT JESICA FIERRO
--- NOTE | ~2019-10-08 | EKG ---
[place], [place] ELECTROCARDIOGRAM REPORT NAME: THOMAS FREEMAN UNIT #: [id number] ROOM: 406 DOCTOR: MARC DRAFT REPORT BIRTHDATE: [birth year] [facility] Test Date: 2019-10-08 Test Time: 13:36:40 Pat Name: THOMAS FREEMAN Department: Room: 406 Gender: F A And P Technician: Lorelei Ambriz : 1975 Requested By: STACIE MASON Order Number: [id number] Reading MD: Randall Alcaraz MD Measurements Intervals [place] Rate: 89 P: 27 [place]: 148 QRS: 68 QRSD: 76 T: -19 QT: 328 QTc: 400 Interpretive Statements Sinus rhythm Low voltage, precordial leads Nonspecific ST and T abnormalities Electronically Signed On 10-09-2019 6:55:52 PST by Randall Alcaraz MD CM:EKGRPT:ELECTROCARDIOGRAM REPORT [id number] STACIE POLLACK DRAFT REPORT STACIE MASON DO
--- NOTE | ~2019-10-08 | PR ---
[place], [place] PROGRESS NOTE NAME: THOMAS FREEMAN UNIT #: [id number] ROOM: 406 DOCTOR: MACEY MATHIS BIRTHDATE: [birth year] DOS: 10/10/2019 CARDIOLOGY PROGRESS NOTE This is late documentation for services provide on 10/10/2019. The patient is being seen in followup for chest pain. SUBJECTIVE: The patient is feeling well today, denying any further episodes of chest discomfort. No shortness of breath. She is awaiting dobutamine stress echocardiogram to be performed tomorrow. OBJECTIVE: VITAL SIGNS: Afebrile, pulse in the 60s, respirations 18, blood pressure 114/55, and saturating 96% on room air. GENERAL APPEARANCE: Obese, middle-aged female, lying in bed, in no distress. NECK: Supple. JVP is normal. No carotid bruits. RESPIRATORY: Lungs are clear. CARDIOVASCULAR: Regular rhythm with normal rate. No murmurs. Mild substernal chest wall tenderness, different from her presenting chest pain. ABDOMEN: Obese. Nontender. EXTREMITIES: Chronic nonpitting edema. LABORATORY DATA: Hemoglobin 13.0, platelets 221, and creatinine 0.94. CURRENT CARDIAC MEDICATIONS: Include apixaban 5 mg b.i.d., metoprolol tartrate, lisinopril 5 mg daily, furosemide 20 mg IV b.i.d., atorvastatin 40 mg daily. IMPRESSION: 1. Atypical chest pain, negative troponins. 2. Morbid obesity. 3. Lupus. 4. Chronic lymphedema. 5. Other comorbidities: Diabetes, diabetes, history of DVT, PE, smoker, hypothyroidism, fibromyalgia, depression, and anxiety. RECOMMENDATIONS: 1. Dobutamine stress echo tomorrow. 2. Aggressive risk factor modification including weight loss, smoking cessation. 3. Continue current cardiac medications. [place], [place] PROGRESS NOTE NAME: THOMAS FREEMAN UNIT #: [id number] ROOM: 406 DOCTOR: MACEY MATHIS BIRTHDATE: [birth year] Dr. MACEY MATHIS MD CM:PNTRANS 1150 1200 MACEY DEL 11/02/19 1201 interface
[2019-10-08 13:04] VITALS: BP 147/85
[2019-10-08 13:52] LABS: HEMATOCRIT 39.8 % (37.0-47.0); HEMOGLOBIN 12.9 g/dl (12.0-16.0); MEAN CORPUSCULAR HGB 28.9 pg (27.0-31.0); MEAN CORPUSCULAR HGB CONC 32.4 g/dl (33.0-37.0); MEAN PLATELET VOLUME 11.2 fl (9.6-12.3); PLATELET COUNT AUTOMATED 217 10*3/uL (130-400); RED BLOOD COUNT 4.47 10*6/uL (4.10-5.10); RED CELL DISTRI WIDTH 14.1 % (0-14.5)
[2019-10-08 13:53] LABS: WHITE BLOOD COUNT 1.5 10*3/uL (4.8-10.8)
[2019-10-08 14:00] VITALS: BP 117/77
[2019-10-08 14:03] LABS: ACT PARTIAL THROMBO TIME 25.9 SECONDS (20.0-32.1); INTERNATIONAL NORM RATIO 0.9 (2.0-3.5)
[2019-10-08 14:05] LABS: ALBUMIN 2.7 gm/dl (3.1-4.5); ALKALINE PHOSPHATASE 173 U/L (45-117); BUN 8 mg/dl (7-24); CHLORIDE 102 mmol/L (98-107); CREATININE 0.93 mg/dL (0.55-1.02); LIPASE 78 U/L (73-393); POTASSIUM 3.8 mmol/L (3.5-5.1); SGOT/AST 31 IU/L (3-35); SGPT/ALT 42 U/L (12-78); SODIUM 137 mmol/L (136-145); TOTAL PROTEIN 6.8 gm/dL (6.4-8.2); TROPONIN I < 0.015 ng/ml (<0.045)
[2019-10-08 14:17] LABS: ATYPICAL LYMPHS 13 % (0-0); BASOPHILS 1 % (0-1); PLATELET SUFFICIENCY NORMAL (NORMAL); TOTAL CELLS COUNTED 100 #CELLS
[2019-10-08 14:35] VITALS: BP 132/78
--- NOTE | 2019-10-08 14:35 | NUR ---
PT WAS TAKEN OFF IMURAN(?) AND STARTED CELLCEPT D/T WHITE COUNT LOW PER PT.
--- NOTE | 2019-10-08 14:54 | NUR ---
PT WITH ADMISSION ORDER PLACED D/T NEW COMPLAINT OF C/P AFTER DR MASON IN TO REEVALUATE PT AND PROBABLE DISCHARGE AND NO PAIN MEDICATIONS PROVIDED WHILE IN ED.
--- NOTE | 2019-10-08 15:55 | NUR ---
PT WITH REDNESS TO BLE PER NORM PER PT.
[2019-10-08 16:10] VITALS: BP 117/77
--- NOTE | 2019-10-08 16:10 | NUR ---
A 44, admitted to , under the services of SULY Lemus DO with a diagnosis of CHEST PAIN. Chief complaint is CHEST PAIN. Patient arrived via bed from ER. Monitor applied. Initial assessment completed. Vital signs taken and recorded. SULY LEMUS DO notified of admission to the unit. Orders received. See assessment for past medical history, medications and allergies. Patient and/or family oriented to unit. [facility] visitation policy reviewed. Clothing/patient valuable form completed. VISH DUMONT
--- NOTE | 2019-10-08 18:24 | NUR ---
DR. FIERRO NOTIFIED OF UP TO DATE HOME MEDS. ALSO NOTIFIED OF NEED FOR WOUND CARE ORDERS.
[2019-10-08] MEDS ORDERED: NALTREXONE50 MG PO (19:07)
--- NOTE | 2019-10-08 19:18 | NUR ---
DR. BARRETO NOTIFIED OF HOME [facility]. WILL PUT DUMMIE MED ORDER IN. PT MEDICATION SENT TO PHARMACY
[2019-10-08 20:00] VITALS: BP 144/65
[2019-10-09] VITALS: BP 128/55
[2019-10-09 06:48] LABS: HEMATOCRIT 37.2 % (37.0-47.0); HEMOGLOBIN 12.1 g/dl (12.0-16.0); MEAN CELL VOLUME 89.4 fl (81.0-99.0); MEAN CORPUSCULAR HGB 29.1 pg (27.0-31.0); MEAN CORPUSCULAR HGB CONC 32.5 g/dl (33.0-37.0); MEAN PLATELET VOLUME 11.7 fl (9.6-12.3); PLATELET COUNT AUTOMATED 221 10*3/uL (130-400); RED BLOOD COUNT 4.16 10*6/uL (4.10-5.10); RED CELL DISTRI WIDTH 14.3 % (0-14.5); WHITE BLOOD COUNT 2.3 10*3/uL (4.8-10.8)
[2019-10-09 06:51] LABS: ALBUMIN 2.7 gm/dl (3.1-4.5); ALKALINE PHOSPHATASE 180 U/L (45-117); BUN 9 mg/dl (7-24); CHLORIDE 102 mmol/L (98-107); CREATININE 0.93 mg/dL (0.55-1.02); PHOSPHOROUS 3.6 mg/dL (2.5-4.9); POTASSIUM 3.7 mmol/L (3.5-5.1); SGOT/AST 46 IU/L (3-35); SGPT/ALT 45 U/L (12-78); SODIUM 137 mmol/L (136-145); TOTAL PROTEIN 6.6 gm/dL (6.4-8.2)
--- NOTE | 2019-10-09 07:30 | NUR ---
Patient resting quietly with no c/o discomfort. Respirations easy and regular. Vital signs stable. No overt distress. GERALDO FERRIS
[2019-10-09 08:00] VITALS: BP 130/60; BP 130/84; BP 142/82
--- NOTE | 2019-10-09 08:27 | NUR ---
24 HR chart check completed.
[2019-10-09 08:34] LABS: ATYPICAL LYMPHS 4 % (0-0); PLATELET SUFFICIENCY NORMAL (NORMAL); TOTAL CELLS COUNTED 100 #CELLS
--- NOTE | 2019-10-09 09:18 | NUR ---
MEDICATED WITH PO NORCO ORDERED PER PT REQUEST FOR C/O GENERALIZED DISCOMFORT.
[2019-10-09 10:06] LABS: BILIRUBIN NEGATIVE (NEGATIVE); BLOOD NEGATIVE (NEGATIVE); CLARITY CLEAR (CLEAR); COLOR YELLOW (YELLOW); GLUCOSE NEGATIVE (NEGATIVE); KETONE NEGATIVE (NEGATIVE); LEUKO ESTERASE NEGATIVE (NEGATIVE); NITRITE NEGATIVE (NEGATIVE); PH 5.5 (5.0-9.0); SPECIFIC GRAVITY <= 1.005 (1.005-1.030); UROBILINOGEN 0.2 E.U./dl (0.2-1.0)
[2019-10-09 10:19] LABS: BACTERIA TRACE; RBC 0-2 rbc/hpf (0-2); WBC 0-2 wbc/hpf (0-5)
--- NOTE | 2019-10-09 11:00 | NUR ---
MEDICATION EFFECTIVE FOR PAIN.
[2019-10-09 12:00] VITALS: BP 100/72
--- NOTE | 2019-10-09 15:14 | NUR ---
Medicated with iv morphine as ordered per pt request for c/o pain to left shoulder area.
[2019-10-09 16:00] VITALS: BP 122/70
--- NOTE | 2019-10-09 18:11 | NUR ---
MEDICATED WITH PO NORCO ORDERED PER PT REQUEST FOR C/O ALL OVER PAIN RATED 10/10.
[2019-10-09 20:00] VITALS: BP 129/76
--- NOTE | 2019-10-09 21:43 | NUR ---
MORPHINE GIVEN PER PATIENT REQUEST FOR COMPLAINTS OF PAIN RATED 8/10 IN BOTH OF HER SHOULDERS/SHOULDER BLADE. WILL ASSESS EFFECTIVENESS.
--- NOTE | 2019-10-09 22:40 | NUR ---
MORPHINE EFFECTIVE PER PATIENT.
--- NOTE | 2019-10-09 23:32 | NUR ---
RESTORIL GIVEN PER PATIENT REQUEST FOR COMPLAINTS OF INSOMNIA. WILL ASSESS EFFECTIVENESS.
[2019-10-10] VITALS: BP 124/72
[2019-10-10 06:24] LABS: EOS % 0.5 % (1.0-4.0); HEMATOCRIT 39.3 % (37.0-47.0); LYMPH # 0.6 10*3/uL (1.3-4.4); LYMPH % 28.7 % (27.0-41.0); MEAN CELL VOLUME 87.9 fl (81.0-99.0); MEAN CORPUSCULAR HGB 29.1 pg (27.0-31.0); MEAN CORPUSCULAR HGB CONC 33.1 g/dl (33.0-37.0); MEAN PLATELET VOLUME 11.6 fl (9.6-12.3); MONO # 0.4 10*3/uL (0.1-1.0); MONO % 19.8 % (3.0-9.0); NEUT % 49.5 % (47.0-73.0); PLATELET COUNT AUTOMATED 221 10*3/uL (130-400); RED BLOOD COUNT 4.47 10*6/uL (4.10-5.10); RED CELL DISTRI WIDTH 13.8 % (0-14.5)
[2019-10-10 06:51] LABS: BUN 11 mg/dl (7-24); CHLORIDE 98 mmol/L (98-107); CREATININE 0.94 mg/dL (0.55-1.02); POTASSIUM 4.3 mmol/L (3.5-5.1); SODIUM 134 mmol/L (136-145)
[2019-10-10 08:00] VITALS: BP 114/55
[2019-10-10 12:00] VITALS: BP 131/46
[2019-10-10 16:00] VITALS: BP 114/68
[2019-10-10 20:00] VITALS: BP 144/68
--- NOTE | 2019-10-10 21:27 | NUR ---
MORPHINE GIVEN PER PATIENT REQUEST FOR PAIN RATED 8/10 IN SHOULDER. WILL ASSESS FOR EFFECTIVENESS.
--- NOTE | 2019-10-10 22:15 | NUR ---
24 HR chart check completed.
--- NOTE | 2019-10-10 23:08 | NUR ---
RESTORIL GIVEN PER PATIENT REQUEST FOR INSOMNIA. WILL ASSESS EFFECTIVENESS.
[2019-10-11] VITALS: BP 118/70
--- NOTE | 2019-10-11 00:27 | NUR ---
Patient resting quietly with no c/o discomfort. Respirations easy and regular. Vital signs stable. No overt distress. 2L NASAL CANNULA. CALL LIGHT WITHIN REACH. JAX SHIPMAN
--- NOTE | 2019-10-11 05:53 | NUR ---
PATIENT IS NPO TODAY FOR STRESS ECHO. BS WAS 285. DR CARPIO GAVE ORDERS TO HOLD MORNING DOSE OF INSULIN.
[2019-10-11 08:00] VITALS: BP 111/55
--- NOTE | 2019-10-11 08:35 | NUR ---
MORPHINE GIVEN FOR C/O GENERLAIZED/JOINT PAIN RATED 9/10. CALL LIGHT WITHIN REACH. WILL MONITOR.
--- NOTE | 2019-10-11 08:40 | NUR ---
PHYSICAL THERAPY Patient seen this am 1:1 for therapy visit and was supine in bed upon therapist arrival. Patient identified by name / and presented with increased B LE edema, including chronic 3/10 pain. Patient transfers supine to sit EOB, then sit to stand with SBA x 1. Patient ambulates SBA, 100'x 2, demonstrating slow, steady lissette and no LOB. Patient tolerated eyes open / closed and backward walkd 5'x 2, no LOB, but very cautious. Patient returned to supine in bed and remained with call light and cell phone. Will continue per POC as tolerated, total treatment time 16 minutes. Nigel Gray, ETHYLBENZENE CRACKING SUPERVISOR
[2019-10-11 08:59] LABS: BUN 20 mg/dl (7-24); CHLORIDE 98 mmol/L (98-107); CREATININE 1.03 mg/dL (0.55-1.02); POTASSIUM 4.1 mmol/L (3.5-5.1); SODIUM 137 mmol/L (136-145)
--- NOTE | 2019-10-11 09:00 | NUR ---
THOMAS FREEMAN [id number] Please refer to the physician's history and physical for past medical history, comorbid conditions, and allergies. Diagnosis: CHEST PAIN Scot Score: 22,LOW OR NO RISK WOUND DESCRIPTIONS: Wound Number: 1 Location of the wound: LEFT UPPER THIGH Type of wound: ABSCESS Thickness: Full Size: 0.6cm X 0.8cm X 0.1cm Tunneling: NONE Undermining: NONE Sinus Tract: NONE Presence of Exudate: Serous sanguineous Amount: Light Color: Red Odor: None Periwound Skin Appearance: Firmness Wound edges: APPROXIMATED Pain (associated with wound): TENDER TO TOUCH How does patient state this happened? PATIENT STATES THIS HAPPENED APPROXIMATELY ONE WEEK AGO. SEEN HER FAMILY PHYSICIAN AND ALL THAT DRAINED WHEN LANCED IN THE OFFICE. Surface the patient is resting on: Isoflex SKIN PREVENTION RECOMMENDATION: 1. Pressure redistribution support surface as appropriate 2. Elevate heels 3. Remove boots/TEDS every shift and reapply 4. Head of bed 30 degrees as tolerated 5. Assess nutrition and hydration 6. Manage moisture 7. Avoid the use of containment devices while in bed 8. Use absorptive products on surfaces limit layers of linens on bed 9. Turn and reposition every 1-2 hours in bed and every 1 hour in chair as tolerated 10. Weight shifts every 15 minutes while up in chair 11. Offloading with pillows or device to keep heels elevated off bed 12. Monitor skin at least every shift 13. Inspect under medical devices twice a day WOUND TREATMENT RECOMMENDATIONS: ULTRASOUND TO LEFT UPPER THIGH TO RULE OUT ABSCESS. WARM COMPRESSES TO THE AREA FOR 15 MINUTES FOUR TIMES A DAY TOLERATED. CONSULT SURGERY FOR POSSIBLE I&D IF ULTRASOUND SUGGESTS. CONTINUE CURRENT TREATMENT OF BACITRACIN. FOLLOW UP IN THE WOUND CARE CENTER AT DISCHARGE. PHONE NUMBER WAS GIVEN AT TIME OF ASSESSMENT [phone].
--- NOTE | 2019-10-11 10:26 | NUR ---
Dr. Tovar notified of wound care recommendations.
--- NOTE | 2019-10-11 10:28 | NUR ---
PER OK TO GIVE 80U LANTUS BEFORE STRESS TEST FOR BSG OF 326 ON AM LAB WORK.
--- NOTE | 2019-10-11 10:32 | NUR ---
NOTIFIED OF POSITIVE CULTURES AND FINAL RESULT. SAID HE WOULD LOOK AT HER CHART.
--- NOTE | 2019-10-11 12:18 | NUR ---
Journalism Intern in to talk to patient. Patient states lives at HOME with FAMILY. There are NO steps in the home. Physician: JARAD CHAPIN Pharmacy: [facility] Home health services: [facility], PT WAS STOPPED EALIRER THIS MONTH PT WOULD LIKE IT BACK. STATES AIDE ARE TO START THIS WEEK. Patient's level of ADLs: MODERATE ASSIST Patient has working utilities: YES DME: OXYGEN, CPAP Follow-up physician's appointment after d/c: WILL BE MADE BY HOSPITALIST NURSE DIRECTOR ON DISCHARGE Does patient want to access PORTAL?: NO Discharge plan PT LIVES AT HOME. STATES SHE DID HAVE HOME HEALTH, BUT PT AND OT WAS STOPPED EALIRER THIS MONTH. STATES SHE WOULD LIKE TO HAVE THEM BACK, ALSO SAYS AIDS WERE TO START THIS WEEK BUT SHE IS NOT SURE OF WHAT COMPANY THEY WOULD BE COMING FROM. WILL CONTINUE TO FOLLOW. STATES SHE WILL HAVE A RIDE HOME ON DISCHARGE.. GONZÁLEZ ROE
--- NOTE | 2019-10-11 12:32 | NUR ---
OFF FLOOR FOR STRESS TEST
--- NOTE | 2019-10-11 13:27 | NUR ---
INFORMED SIGNED CONSENT OBTAINED FOR STRESS ECHO WITH DR CHRISTINE. RESTING PRELIM PICUTRES OBTAINED. RESTING EKG SINUS BRADYCARDIA WITH A HR OF 49 BP 134/80. PT COMPLETED 11:59 OF A 3;00 MIN DOBUTAMIN PROTOCOL WITH PT RECEIVING A TOTAL OF 40 MCG/KG/MIN AND 1.5ML ATROPINE TO OBTAIN A MAXIMUM HR OF 150 WHICH REPRESENTS 85% OF PREDICTED MAXIMUM. A TOTAL OF 3ML OPTISON WAS ADMINISTRED THROUGHOUT THE TEST FOR OPTIMAL PICTURES. PVC'S NOTED. NO ST CHANGES SEEN. PT C/O 4/10 CHEST DISCOMORT AT PEAK EXERCISE. BP MONITORED THROUGH OUT PEAK OF 1548/74. PT IN STABLE CONDITION, RESTING BP 116/70 HR 91 CHEST DISCOMFORT 2/10. NEGATIVE STRESS ECHO PER DR CHRISTINE RESTING, PT TAKEN TO ROOM VIA WHEELCHAIR, PT RESTING IN ROOM IN STABLE CONDITION, CALL [facility] IN REACH. NURSE NOTIFIED PT BACK IN ROOM.
--- NOTE | 2019-10-11 13:44 | NUR ---
BACK TO ROOM FOLLOWING STRESS TEST
--- NOTE | 2019-10-11 13:58 | NUR ---
WARM COMPRESS APPLIED PER ORDERS.
[2019-10-11] MEDS ORDERED: NORCO 5-325 TA1 EACH PO (15:35)
[2019-10-11] MEDS ORDERED: LASIX20 MG PO (15:35)
[2019-10-11] MEDS ORDERED: ELIQUIS5 M1 PO (15:35)
[2019-10-11] MEDS ORDERED: MEDROL DOSEPAK4 MG PO (15:35)
[2019-10-11] MEDS ORDERED: Bactroban Oint22 GM T (15:43)
--- NOTE | 2019-10-11 16:54 | NUR ---
REFUSING DISCHARGE PHOTO/MEASUREMENT OF WOUND TO LEFT UPPER INNER THIGH. Discharge instructions reviewed with patient/family. Patient receptive and verbalizes understanding. Follow-up care arranged. Written instructions given to patient/family. ALEJANDRA GARCIA
--- NOTE | 2019-10-11 18:40 | NUR ---
PHYSICAL THERAPY CO-SIGN I approve of the Physical Therapy notes written above. NICCI BAUM, PT, DPT
== END 2019-10-11 16:55 | disposition home or self-care (01) | DRG 880 ==
LOC: ED 13:01 → 4E 15:00 → EDHOLD 15:00 → 4E 15:07
PROVIDERS: Family Medicine; Internal Medicine; ADMIT Emergency Medicine
DX: F41.9 Anxiety disorder, unspecified (principal); E43 Unspecified severe protein-calorie malnutrition; R65.10 Systemic inflammatory response syndrome (SIRS) of non-infectious origin without acute organ dysfunction; Z68.44 Body mass index [BMI] 60.0-69.9, adult; R07.89 Other chest pain; E66.01 Morbid (severe) obesity due to excess calories; M32.9 Systemic lupus erythematosus, unspecified; I89.0 Lymphedema, not elsewhere classified; F31.9 Bipolar disorder, unspecified; E28.2 Polycystic ovarian syndrome; E03.9 Hypothyroidism, unspecified; N18.3 Chronic kidney disease, stage 3 (moderate); E11.69 Type 2 diabetes mellitus with other specified complication; I12.9 Hypertensive chronic kidney disease with stage 1 through stage 4 chronic kidney disease, or unspecified chronic kidney disease; E78.5 Hyperlipidemia, unspecified; G89.29 Other chronic pain; K75.81 Nonalcoholic steatohepatitis (NASH); E55.9 Vitamin D deficiency, unspecified; Z71.6 Tobacco abuse counseling; Z86.711 Personal history of pulmonary embolism; Z86.718 Personal history of other venous thrombosis and embolism; Z79.4 Long term (current) use of insulin; Z90.49 Acquired absence of other specified parts of digestive tract; Z90.710 Acquired absence of both cervix and uterus; F17.210 Nicotine dependence, cigarettes, uncomplicated; Z82.49 Family history of ischemic heart disease and other diseases of the circulatory system

== ENCOUNTER 2019-10-24 11:47 | Emergency (ER) | payer MEDICARE, OTHER ==
[~2019-10-24] VITALS: Ht 165.1 cm; Wt 177.4 kg
[~2019-10-24 11:47] MED LIST changes: +Bactroban Oint22 GM T; +ELIQUIS5 M1 PO; +MEDROL DOSEPAK4 MG PO; +NALTREXONE50 MG PO; +NORCO 5-325 TA1 EACH PO
[2019-10-24 13:55] LABS: BUN 10 mg/dl (7-24); CHLORIDE 104 mmol/L (98-107); CREATININE 0.82 mg/dL (0.55-1.02); POTASSIUM 3.9 mmol/L (3.5-5.1); SODIUM 138 mmol/L (136-145)
== END 2019-10-24 14:00 | disposition home or self-care (01) ==
LOC: ED 11:47
PROVIDERS: Emergency Medicine
DX: G89.29 Other chronic pain (principal); E66.01 Morbid (severe) obesity due to excess calories; I12.9 Hypertensive chronic kidney disease with stage 1 through stage 4 chronic kidney disease, or unspecified chronic kidney disease; E11.22 Type 2 diabetes mellitus with diabetic chronic kidney disease; N18.9 Chronic kidney disease, unspecified; E78.5 Hyperlipidemia, unspecified; E03.9 Hypothyroidism, unspecified; F17.200 Nicotine dependence, unspecified, uncomplicated; Z86.711 Personal history of pulmonary embolism; M79.7 Fibromyalgia; Z79.899 Other long term (current) drug therapy; Z79.2 Long term (current) use of antibiotics; Z79.4 Long term (current) use of insulin; Z90.710 Acquired absence of both cervix and uterus; Z90.49 Acquired absence of other specified parts of digestive tract

== ENCOUNTER 2019-11-23 13:56 | Inpatient (IN) | payer MEDICARE, OTHER ==
[~2019-11-23] VITALS: Ht 165.1 cm; Wt 174.4 kg
--- NOTE | 2019-11-23 14:14 | NUR ---
EXCORIATION NOTED UNDER THE RIGHT BREAST WITH CLEAR DRAINAGE AND FOUL ODOR NOTED. EXFCORIATION NOTED TO THE FOLDS OF THE LEFT GROIN AREA. NO PHOTOS TAKEN.
[2019-11-23 14:15] VITALS: BP 139/71
--- NOTE | 2019-11-23 15:11 | NUR ---
PT STATES SHE IS COLD PT GIVEN WARM BLANKETS X 3
--- NOTE | 2019-11-23 15:12 | NUR ---
DR PELAYO WITH PATIENT REVIEWING RESULTS
[2019-11-23 15:35] VITALS: BP 136/62
[2019-11-23 15:36] LABS: BASO # 0.1 10*3/uL (0.0-0.1); BASO % 0.6 % (0.0-1.0); EOS # 0.2 10*3/uL (0.0-0.4); EOS % 1.6 % (1.0-4.0); HEMATOCRIT 42.5 % (37.0-47.0); HEMOGLOBIN 13.5 g/dl (12.0-16.0); LYMPH # 0.9 10*3/uL (1.3-4.4); LYMPH % 8.4 % (27.0-41.0); MEAN CELL VOLUME 89.3 fl (81.0-99.0); MEAN CORPUSCULAR HGB 28.4 pg (27.0-31.0); MEAN CORPUSCULAR HGB CONC 31.8 g/dl (33.0-37.0); MEAN PLATELET VOLUME 11.3 fl (9.6-12.3); MONO # 0.8 10*3/uL (0.1-1.0); MONO % 7.3 % (3.0-9.0); NEUT # 8.8 10*3/uL (2.3-7.9); NEUT % 81.7 % (47.0-73.0); PLATELET COUNT AUTOMATED 246 10*3/uL (130-400); RED BLOOD COUNT 4.76 10*6/uL (4.10-5.10); RED CELL DISTRI WIDTH 13.3 % (0-14.5); WHITE BLOOD COUNT 10.8 10*3/uL (4.8-10.8)
[2019-11-23 15:50] LABS: ALBUMIN 2.7 gm/dl (3.1-4.5); ALKALINE PHOSPHATASE 195 U/L (45-117); BUN 7 mg/dl (7-24); CHLORIDE 107 mmol/L (98-107); CREATININE 0.94 mg/dL (0.55-1.02); POTASSIUM 3.7 mmol/L (3.5-5.1); SGOT/AST 61 IU/L (3-35); SGPT/ALT 58 U/L (12-78); SODIUM 141 mmol/L (136-145); TOTAL PROTEIN 6.9 gm/dL (6.4-8.2)
--- NOTE | 2019-11-23 16:42 | NUR ---
PT ABLE TO PROVIDE URINE SPEC AT BEDISDE COMMODE PT NEEDED ASSISTANCE MOVING FROM BED TO COMMODE AND BACK TO BED WITH 2 ASSISTANTS PT STATES KNEES FEEL LIKE THEY ARE GOING TO GIVE OUT PT FEELS VERY WEAK
[2019-11-23 16:55] LABS: BILIRUBIN NEGATIVE (NEGATIVE); BLOOD NEGATIVE (NEGATIVE); CLARITY SL CLOUDY (CLEAR); COLOR YELLOW (YELLOW); GLUCOSE NEGATIVE (NEGATIVE); KETONE NEGATIVE (NEGATIVE); LEUKO ESTERASE NEGATIVE (NEGATIVE); NITRITE NEGATIVE (NEGATIVE); SPECIFIC GRAVITY 1.025 (1.005-1.030)
[2019-11-23 17:01] LABS: BACTERIA 2+; RBC 0-2 rbc/hpf (0-2)
[2019-11-23 17:26] VITALS: BP 118/72
--- NOTE | 2019-11-23 17:34 | NUR ---
PT GIVEN WARM BLANKET PT IN BED NO OTHER REQUESTS NO SIGN OF DISTRESS BED IN LOWEST POSITION BED RAILS UP X 2 CALL LIGHT IN REACH
--- NOTE | 2019-11-23 17:49 | NUR ---
DR PELAYO AT BEDSIDE
--- NOTE | 2019-11-23 17:50 | NUR ---
DR PELAYO JUST SPOKE WITH PT
[2019-11-23 19:50] VITALS: BP 117/51
--- NOTE | 2019-11-23 19:50 | NUR ---
A 44, admitted to , under the services of SHRUTHI Hoff DO with a diagnosis of ANASARCA. INABILITY TO AMBULATE. Chief complaint is SHORTNESS OF BREATH. Patient arrived via bed from ER. Monitor applied. Initial assessment completed. Vital signs taken and recorded. SHRUTHI HOFF DO notified of admission to the unit. Orders received. See assessment for past medical history, medications and allergies. Patient and/or family oriented to unit. [address] visitation policy reviewed. Clothing/patient valuable form completed. REDNESS/OPEN SKIN UNDER RIGHT BREAST AND LEFT GROIN FOLD ON ADMISSION. PHOTOS AND MEASUREMENTS TAKEN. VACCINATED THIS FLU SEASON. TORO,ACE
[2019-11-23 20:00] VITALS: BP 117/51
[2019-11-23] MEDS ORDERED: VITAMIN D350000 UNIT PO (20:13)
[2019-11-23] MEDS ORDERED: HYDROXYZINE PAM25 M1 PO (20:18)
--- NOTE | 2019-11-23 21:12 | NUR ---
CONSULT FOR DR JIMENEZ CALLED INTO ANSWERING SERVICE.
[2019-11-24] VITALS: BP 139/75
--- NOTE | 2019-11-24 00:19 | NUR ---
NORCO ADMINISTERED PRESCRIBED FOR C/O PAIN ALL OVER RATED A 6/10 ON THE PAIN SCALE. WILL CONTINUE TO MONIOR AND REASSESS.
--- NOTE | 2019-11-24 00:22 | NUR ---
T.O. TAKEN FROM DR KATZ FOR 15MG RESTORIL QHS FOR PT C/O DIFFICULTY FALLING ASLEEP.
--- NOTE | 2019-11-24 01:20 | NUR ---
PT ASLEEP AT THIS TIME. NO SIGNS OF DISCOMFORT OR DISTRESS NOTED. RESPIRATIONS EASY AND UNLABORED.
--- NOTE | 2019-11-24 01:30 | NUR ---
24 HOUR CHART CHECK COMPLETE.
--- NOTE | 2019-11-24 04:21 | NUR ---
NORCO ADMINISTERED FOR PT C/O 05/10 PAIN TO BLE, WORSE IN THE LEFT ANKLE. WILL CONTINUE TO MONITOR AND REASSESS. NO OTHER COMPLAINTS AT THIS TIME.
--- NOTE | 2019-11-24 05:41 | NUR ---
PT STATES [facility]. STATES SHE FEELS "STIFF". WILL CONTINUE TO MONITOR.
--- NOTE | 2019-11-24 06:15 | NUR ---
SPOKE WITH DR KATZ REGARDING PATIENTS 50CC OUTPUT FROM 1999-O. T.O. ORDER TAKEN FOR A BRAVO CATHETER.
[2019-11-24 06:25] LABS: BASO # 0.1 10*3/uL (0.0-0.1); BASO % 0.9 % (0.0-1.0); EOS # 0.4 10*3/uL (0.0-0.4); EOS % 4.6 % (1.0-4.0); HEMATOCRIT 40.4 % (37.0-47.0); HEMOGLOBIN 12.7 g/dl (12.0-16.0); LYMPH # 1.2 10*3/uL (1.3-4.4); LYMPH % 15.1 % (27.0-41.0); MEAN CELL VOLUME 89.6 fl (81.0-99.0); MEAN CORPUSCULAR HGB 28.2 pg (27.0-31.0); MEAN CORPUSCULAR HGB CONC 31.4 g/dl (33.0-37.0); MEAN PLATELET VOLUME 11.8 fl (9.6-12.3); MONO # 0.7 10*3/uL (0.1-1.0); MONO % 8.6 % (3.0-9.0); NEUT # 5.7 10*3/uL (2.3-7.9); NEUT % 70.3 % (47.0-73.0); PLATELET COUNT AUTOMATED 251 10*3/uL (130-400); RED BLOOD COUNT 4.51 10*6/uL (4.10-5.10); RED CELL DISTRI WIDTH 13.3 % (0-14.5); WHITE BLOOD COUNT 8.1 10*3/uL (4.8-10.8)
--- NOTE | 2019-11-24 06:30 | NUR ---
16 CROATIAN BRAVO CATHETER INSERTED. 400CC DARK FABIOLA URINE DRAINED. BAG ON ICE FOR 24 HOUR URINE SAMPLE.
--- NOTE | 2019-11-24 06:30 | NUR ---
24 HOUR URINE COLLECTION STARTED AT THIS TIME.
[2019-11-24 06:32] LABS: BUN 8 mg/dl (7-24); CHLORIDE 105 mmol/L (98-107); POTASSIUM 3.1 mmol/L (3.5-5.1); SODIUM 142 mmol/L (136-145)
[2019-11-24 08:00] VITALS: BP 118/78
--- NOTE | 2019-11-24 08:50 | NUR ---
NORCO GIVEN PER PATIENT REQUEST FOR GENERALIZED PAIN "ALL OVER" AND BACK RATED 8/10. WILL ASSESS EFFECTIVENESS.
--- NOTE | 2019-11-24 10:09 | NUR ---
NORCO EFFECTIVE PER PATIENT. WILL CONTINUE TO MONITOR
[2019-11-24 12:00] VITALS: BP 124/77
--- NOTE | 2019-11-24 13:12 | NUR ---
NORCO GIVEN PER PATIENT REQUEST FOR COMPLAINTS OF BACK PAIN RATED 7/10. WILL ASSESS EFFECTIVENESS.
--- NOTE | 2019-11-24 15:18 | NUR ---
Patient resting quietly with no c/o discomfort. Respirations easy and regular. Vital signs stable. No overt distress. JAX SHIPMAN
[2019-11-24 16:00] VITALS: BP 125/75
--- NOTE | 2019-11-24 17:20 | NUR ---
NORCO GIVEN PER PATIENT REQUEST FOR COMPLAINTS OF LEG PAIN RATED 8/10. WILL ASSESS EFFECTIVENESS.
--- NOTE | 2019-11-24 17:25 | NUR ---
PATIENT TEARFUL ABOUT WHY SHE IS NOT RECIEIVING LASIX OR SOLU-MEDROL. 24 HOUR URINE EXPLAINED TO THE PATIENT AGAIN. PATIENT UNDERSTANDS TEACHING. WILL CONTINUE TO MONITOR THE PATIENT.
--- NOTE | 2019-11-24 18:42 | NUR ---
NORCO SLIGHTLY EFFECTIVE PER PATIENT. LEG PAIN RATED 6/10. PATIENT REQUESTING TO "HOLD OFF ON MORPHINE" UNTIL CLOSER TO BEDTIME. WILL CONTINUE TO MONITOR.
[2019-11-24 20:00] VITALS: BP 138/76
--- NOTE | 2019-11-24 21:00 | NUR ---
Patient resting quietly with C/O ALL OVER GENERALIZED DISCOMFORT FROM EDEMA. Respirations easy and regular. Vital signs stable. No overt distress NOTED. STATED SHE WILL REQUEST MORHPINE LATER FOR GENERALIZED DISCOMFORT SHANNAN TATE
--- NOTE | 2019-11-24 23:40 | NUR ---
PATIENT MEDICATED WITH MORPHINE FOR C/O GENERALIZED BODY PAIN 07/10. ZOFRAN ALSO PROVIDED PER PATIENT REQUEST, STATED MORPHINE MAKES HER NAUSEATED. WILL CONTINUE TO MONITOR
[2019-11-25] VITALS: BP 132/74
--- NOTE | 2019-11-25 00:40 | NUR ---
MORPHINE AND ZOFRAN APPEARS EFFECTIVE. PATIENT RESTING QUIETLY, EYES CLOSED. NO DISTRESS NOTED.
--- NOTE | 2019-11-25 05:38 | NUR ---
THOMAS FREEMAN [id number] Please refer to the physician's history and physical for past medical history, comorbid conditions, and allergies. Diagnosis: ANASARCA UNABLE TO AMBULATE Scot Score: 15,AT RISK WOUND DESCRIPTIONS: Red satelitte areas noted to bilateral breasts, and abdominal folds. Musty odor noted to bilateral breasts and abdominal folds. Patient stated this started over the weekend. Patient denied having this before. Light amount of serous drainage noted to bilateral breasts and abdominal folds. Surface the patient is resting on: Isoflex SKIN PREVENTION RECOMMENDATION: 1. Pressure redistribution support surface as appropriate 2. Elevate heels 3. Remove boots/TEDS every shift and reapply 4. Head of bed 30 degrees as tolerated 5. Assess nutrition and hydration 6. Manage moisture 7. Avoid the use of containment devices while in bed 8. Use absorptive products on surfaces limit layers of linens on bed 9. Turn and reposition every 1-2 hours in bed and every 1 hour in chair as tolerated 10. Weight shifts every 15 minutes while up in chair 11. Offloading with pillows or device to keep heels elevated off bed 12. Monitor skin at least every shift 13. Inspect under medical devices twice a day WOUND TREATMENT RECOMMENDATIONS: Continue nystatin powder every 8 hours to bilateral breasts and abdominal folds.
[2019-11-25 06:38] LABS: BASO # 0.1 10*3/uL (0.0-0.1); BASO % 0.6 % (0.0-1.0); EOS # 0.4 10*3/uL (0.0-0.4); EOS % 4.5 % (1.0-4.0); HEMATOCRIT 40.6 % (37.0-47.0); HEMOGLOBIN 12.6 g/dl (12.0-16.0); LYMPH # 0.9 10*3/uL (1.3-4.4); LYMPH % 11.2 % (27.0-41.0); MEAN CELL VOLUME 91.6 fl (81.0-99.0); MEAN CORPUSCULAR HGB 28.4 pg (27.0-31.0); MEAN PLATELET VOLUME 11.7 fl (9.6-12.3); MONO # 0.7 10*3/uL (0.1-1.0); NEUT # 6.2 10*3/uL (2.3-7.9); NEUT % 75.3 % (47.0-73.0); PLATELET COUNT AUTOMATED 256 10*3/uL (130-400); RED BLOOD COUNT 4.43 10*6/uL (4.10-5.10); RED CELL DISTRI WIDTH 13.4 % (0-14.5); WHITE BLOOD COUNT 8.2 10*3/uL (4.8-10.8)
[2019-11-25 07:12] LABS: ALBUMIN 2.5 gm/dl (3.1-4.5); BUN 9 mg/dl (7-24); CHLORIDE 105 mmol/L (98-107); CREATININE 0.83 mg/dL (0.55-1.02); PHOSPHOROUS 3.8 mg/dL (2.5-4.9); SGOT/AST 51 IU/L (3-35); SGPT/ALT 59 U/L (12-78); SODIUM 139 mmol/L (136-145)
[2019-11-25 07:13] LABS: ALKALINE PHOSPHATASE 176 U/L (45-117); TOTAL PROTEIN 6.7 gm/dL (6.4-8.2)
--- NOTE | 2019-11-25 07:30 | NUR ---
PHYSICAL THERAPY Screen received as well as orders for Physical Therapy will follow thank you Hellen Gonzales PT
--- NOTE | 2019-11-25 07:32 | NUR ---
Nursing screen received and Occupational Therapy referral received. Thank you. Flori Marquez OTR/L
--- NOTE | 2019-11-25 09:00 | NUR ---
Booster Pump Oiler in to talk to patient. Patient states lives at home with alone. There are no steps in the home. Physician: ashlyn harris [facility]: [facility] Home health services: none Patient's level of ADLs: MINIMAL ASSIST Patient has working utilities: all working DME: cane, walker, home oxygen, portable tanks from [facility], [place] Follow-up physician's appointment after d/c: will be made by hospitalist nurse director upon discharge Does patient want to access PORTAL?: no Discharge plan discussed with patient, she states she lives at home alone, she requires assistance in adls and ambulation, she states she has a cane and walker along with home oxygen with portable tanks, ,patient states she is unable to ambulate at this time due to leg swelling, discussed with her a short term care home for 5 days of therapy prior to returning home, she declines SNF, also discussed VNA with 3 day a week home visits, she stated she wasn't going anywhere until some of the fluids was drained from her legs, case management educated her that she needed to think about and choose a discharge plan prior to discharge, she stated she would think about it, case management will follow. DUSTIN BRUNO
--- NOTE | 2019-11-25 10:00 | NUR ---
NORCO ADMINISTERED FOR BILATERAL LEG PAIN RATED A 6/10 WORSENING WITH MOVEMENT. WILL CONTINUE TO MONITOR.
--- NOTE | 2019-11-25 10:43 | NUR ---
[facility] is here to do an assessment on the patient for the [employer] Waiver Program. She requested a Med List and H&P on the patient. BILLET HEATER OPERATOR provided her with these. Iqra stated the patient does qaulify her to receive the additional services in the patients home. -ADDIS Ponce
--- NOTE | 2019-11-25 10:45 | NUR ---
Occupational Therapy evaluation completed on 4 with full eval to follow. Precautions include fall risk, BUE/BLE edema/anasarca,IV UE,O2 @3 lpm,obesity,catheter,high complexity level 71291. Recommend OT per plan of care for ADL training,safe functional mobility and transfers with good BUE strength and energy conservation/work simplification and SNF if goals unmet and home w/ home health SN, OT,PT as able at d/c. Thank you. Jim Marquez OTR/L
--- NOTE | 2019-11-25 11:00 | NUR ---
PT STATES NORCO WAS EFFECTIVE.
[2019-11-25 12:00] VITALS: BP 140/76
--- NOTE | 2019-11-25 12:56 | NUR ---
PHYSICAL THERAPY Padilla completed full report to follow pt a moderate complexity level 61679 recomend SNF at discharge pending progress. PT to work on transfers, amb w AD, strengthening, balance/safety. Hellen Gonzales PT
--- NOTE | 2019-11-25 14:15 | NUR ---
PHYSICAL THERAPY Patient seen this pm 1;1 for therapy visit and was resting supine in bed upon therapist arrival. Patient identified by name / and presented with continuous O2-2L via NC, IV treatment. Patient also presented with increaed B LE edema and c/o's of chronic B ankle / knee pain, 03/10. Patient transfers supine to sit EOB with MOD A, demonstrating increased difficulty with R LE advance to EOB, requiring therapist MIN A. Patient tolerated static EOB sit x 8 minutes, completing B ankle pumps and instructed to continue B LE elevation / ankle pumps when supine in bed. Patient returned to supine with MAX A x 2 and remained with call light, tray table, cell phone and bed alarm for safety. Will continue per POC as tolerated, total treatment time 14 minutes. Nigel Gray, BRAID PATTERN SETTER
--- NOTE | 2019-11-25 14:27 | NUR ---
NORCO ADMINISTERED FOR PT C/O BILATERAL FEET PAIN RATED A 6/10 ON THE PAIN SCALE. WILL CONTINUE TO MONITOR AND REASSESS.
[2019-11-25 16:00] VITALS: BP 131/71
[2019-11-25 20:00] VITALS: BP 139/82
--- NOTE | 2019-11-25 23:02 | NUR ---
PRN RESTORIL AND NORCO WERE GIVEN FOR PAIN AND UNABLE TO FALL ASLEEP. WILL REASSESS EFFECTIVENESS.
--- NOTE | 2019-11-25 23:03 | NUR ---
24 HR chart check completed.
[2019-11-26] VITALS: BP 137/86
--- NOTE | 2019-11-26 01:05 | NUR ---
PRN VISTARIL GIVEN FOR PT COMPLAINTS OF SLEEPLESSNESS. CALL LIGHT WITHIN REACH, WILL MONITOR
--- NOTE | 2019-11-26 02:00 | NUR ---
PRN MEDICATION APPEARS EFFECTIVE, PT SLEEPING. IV LASIX INFUSING WITHOUT ISSUE. CALL LIGHT WITHIN REACH
--- NOTE | 2019-11-26 02:17 | NUR ---
24 HR chart check completed.
[2019-11-26 06:17] LABS: BUN 9 mg/dl (7-24); CHLORIDE 99 mmol/L (98-107); CREATININE 0.96 mg/dL (0.55-1.02); POTASSIUM 3.2 mmol/L (3.5-5.1); SODIUM 139 mmol/L (136-145)
[2019-11-26 06:27] LABS: BASO # 0.1 10*3/uL (0.0-0.1); BASO % 0.8 % (0.0-1.0); EOS # 0.3 10*3/uL (0.0-0.4); EOS % 3.5 % (1.0-4.0); HEMATOCRIT 41.7 % (37.0-47.0); HEMOGLOBIN 13.2 g/dl (12.0-16.0); LYMPH # 1.2 10*3/uL (1.3-4.4); LYMPH % 13.3 % (27.0-41.0); MEAN CELL VOLUME 88.9 fl (81.0-99.0); MEAN CORPUSCULAR HGB 28.1 pg (27.0-31.0); MEAN CORPUSCULAR HGB CONC 31.7 g/dl (33.0-37.0); MEAN PLATELET VOLUME 11.6 fl (9.6-12.3); MONO # 0.8 10*3/uL (0.1-1.0); MONO % 8.5 % (3.0-9.0); NEUT # 6.5 10*3/uL (2.3-7.9); NEUT % 73.6 % (47.0-73.0); PLATELET COUNT AUTOMATED 283 10*3/uL (130-400); RED BLOOD COUNT 4.69 10*6/uL (4.10-5.10); RED CELL DISTRI WIDTH 13.2 % (0-14.5); WHITE BLOOD COUNT 8.9 10*3/uL (4.8-10.8)
[2019-11-26 08:00] VITALS: BP 127/77
--- NOTE | 2019-11-26 09:00 | NUR ---
case management visits with patient, again discussed with her a short term snf for rehab prior to returning home, she declined, stated she would be returning home, also discussed with her VNA and she also declined this, case management will follow
--- NOTE | 2019-11-26 10:12 | NUR ---
OT NOTE Pt was seen this A.M. 1:1 for 20 minute OT session. Upon arrival pt was supine in bed. Pt identified by name and and had complaints of 6/10 L knee pain and 3-4/10 B ankle pain. Pt transferred supine to sit EOB with modA and use of bed rail for UE support, pt required modA for BLE's. Pt completed multiple sit to stand transfers from bed level with CGA and use of w/w for UE support. Challenged pt's static standing tolerance needed for increased I in self care tasks and functional transfers, pt was able to tolerate aprox 3 minutes during her first trial and 4 minutes her second attempt. Pt then transferred back into bed sit to supine with maxA X 2. There she was left with call light in hand, tray table in place, and bed alarm activated for safety. Continue with rec D/C plan to SNF. KRISTYN Mcgee/Robert
--- NOTE | 2019-11-26 10:19 | NUR ---
PHYSICAL THERAPY TREATMENT TIME: 10:15 AM - 10:35 AM Patient presented to therapy in supine with head of bed elevated and bed alarm activated. Patient is on spO2, BUT 0 LITERS of spO2 registering on wall outlet gauge. Patient gives informed consent for treatment. Patient was identified by name and on wristband. Patient reports 5/10 pain in the L KNEE and 3/10 pain in the bilateral ankles. Patient has spO2 AT HOME , but only at nighttime. Patient transferred supine to sitting at EOB with MOD A X 1 with verbal cues for moving LEs out over EOB with help of therapist. Patient sat on EOB with SBA. Patient scooted forwards to EOB AND PUT BILATERAL FEET ON FLOOR WITH SBA. Patient sit to stand transfer with CGA X 2 with verbal cues for proper hand placement and pushing off handrail with L hand. Patient stood at Walker with CGA X 2 for 3 minutes the 1st attempt and 4 minutes the 2nd attempt. Patient had pain in the bilateral ankles while standing at Walker both times. Patient transferred back to supine in bed with MAX A X 2. Patient moved up to head of bed with MAX A X 2 using sheet. Patient was left in supine in bed with head of bed elevated, call light within reach and bed alarm activated. Patient connected to wall outlet with spO2. Some mild bood noticed by this WEATHERIZATION SPECIALIST and KRISTYN BERNAL and this was reported to MIGUEL ANGEL FU. Patient was 1:1 with this WEATHERIZATION SPECIALIST for 21 minutes total. ANAND HERBERT WEATHERIZATION SPECIALIST
[2019-11-26 12:00] VITALS: BP 133/86
--- NOTE | 2019-11-26 13:50 | NUR ---
OT NOTE Pt was seen this P.M. for second OT session consisting of 20 minutes. Upon arrival pt was supine in bed. Pt identified by name and and had complaints of 3/10 B ankle pain. Pt transferred supine to sit EOB with Andreina for assist with RLE. Pt then completed sit to stand from the EOB with CGA and use of w/w followed by standing pivot from the EOB to the bedside commode with CGA and use of w/w. Pt did require education on slowing down due to being impulsive and increasing risk of falls and poor safety awareness. Pt transferred on/off bedside commode with CGA and use of w/w. Functional mobility was then completted to the bathroom with CGA and use of w/w with verbal prompts for encouragment due to becoming anxious and increased fear of falling. Due to quick onset of fatigue pt was sat in the recliner and pushed back into the bedroom. Pt was left sitting upright in the recliner with call light in hand, tray table in place, and phone in reach. Continue with rec D/C plan to SNF. KRISTYN Mcgee/Robert
--- NOTE | 2019-11-26 14:30 | NUR ---
PHYSICAL THERAPY TREATMENT TIME: 1:45 PM - 2:10 PM Patient presented to therapy in supine with head of bed elevated and bed alarm activated. Patient is not on spO2 at this time. Patient was identified by name and on wristband. Patient gives informed consent for treatment. Patient reports pain in the bilateral ankles and feet. Patient performed supine to sitting at EOB transfer with SBA. Patient was able to move her own LEs out over the EOB without assistance this afternoon, which is an improvement from this AM. Patient performed sitting at EOB with SBA. Patient performed sit to stand from EOB with SBA with verbal cues for pushing off the bed with one hand. Patient ambulated from EOB out into hallway and down hallway, for a total of 50' x 1 with CGA X 1 and rolling chair follow with IV line in tow by other therapist. One therapist pushed chair, one therapist pushed IV pole and Close Supervision of patient, and this BED LABORER was CGA X 1 for entire ambulation distance of 50' x 1. Patient required verbal cues for locking knees into extension in order to prevent knees from buckling. Patient was anxious at first and with encouragement , was able to complete the gait distance without stopping. Patient sat in rolling chair that was brought up behind her with CGA X 1. Patient was rolled back to bedside and sit to stand out of bedside chair with CGA X 1 WITH VERBAL CUES FOR PUSHING OFF THE ARMRESTS OF CHAIR. Patient SPT into EOB with SBA X 1. Patient transferred into supine in bed with SBA and verbal cues for proper technique. Patient was left in supine in bed with head of bed elevated, call light within reach and bed alarm activated. Patient was 1:1 with this BED LABORER for 25 minutes total. ANAND HERBERT BED LABORER
[2019-11-26 16:00] VITALS: BP 148/77
--- NOTE | 2019-11-26 16:39 | NUR ---
PHYSICAL THERAPY CO-SIGN I approve of the Phyical Therapy notes written above. Hellen Gonzales PT
--- NOTE | 2019-11-26 16:40 | NUR ---
OCCUPATIONAL THERAPY CO-SIGN I approve of the Occupational Therapy notes written above. NIKO KEYES OTR/Robert
[2019-11-26 20:00] VITALS: BP 137/78
[2019-11-27] VITALS: BP 128/68
[2019-11-27 06:12] LABS: BASO # 0.1 10*3/uL (0.0-0.1); BASO % 0.9 % (0.0-1.0); EOS # 0.3 10*3/uL (0.0-0.4); EOS % 3.2 % (1.0-4.0); HEMATOCRIT 42.1 % (37.0-47.0); HEMOGLOBIN 13.4 g/dl (12.0-16.0); LYMPH # 1.3 10*3/uL (1.3-4.4); LYMPH % 14.4 % (27.0-41.0); MEAN CELL VOLUME 88.1 fl (81.0-99.0); MEAN CORPUSCULAR HGB CONC 31.8 g/dl (33.0-37.0); MEAN PLATELET VOLUME 11.2 fl (9.6-12.3); MONO # 0.8 10*3/uL (0.1-1.0); MONO % 8.3 % (3.0-9.0); NEUT # 6.6 10*3/uL (2.3-7.9); NEUT % 72.8 % (47.0-73.0); PLATELET COUNT AUTOMATED 290 10*3/uL (130-400); RED BLOOD COUNT 4.78 10*6/uL (4.10-5.10); RED CELL DISTRI WIDTH 13.1 % (0-14.5); WHITE BLOOD COUNT 9.1 10*3/uL (4.8-10.8)
[2019-11-27 06:28] LABS: ALBUMIN 2.6 gm/dl (3.1-4.5); BUN 13 mg/dl (7-24); CHLORIDE 96 mmol/L (98-107); CREATININE 0.94 mg/dL (0.55-1.02); SGOT/AST 66 IU/L (3-35); SGPT/ALT 64 U/L (12-78); SODIUM 139 mmol/L (136-145); TOTAL PROTEIN 7.2 gm/dL (6.4-8.2)
[2019-11-27 06:29] LABS: ALKALINE PHOSPHATASE 209 U/L (45-117)
[2019-11-27 08:00] VITALS: BP 127/76
[2019-11-27 12:00] VITALS: BP 132/80
[2019-11-27 16:00] VITALS: BP 134/75
[2019-11-27 20:00] VITALS: BP 135/78
[2019-11-28] VITALS: BP 125/67
[2019-11-28 06:08] LABS: BUN 17 mg/dl (7-24); CHLORIDE 96 mmol/L (98-107); CREATININE 0.99 mg/dL (0.55-1.02); PHOSPHOROUS 3.4 mg/dL (2.5-4.9); POTASSIUM 3.5 mmol/L (3.5-5.1); SODIUM 138 mmol/L (136-145)
[2019-11-28 08:00] VITALS: BP 138/80
--- NOTE | 2019-11-28 08:00 | NUR ---
ASSESSMENT COMPLETE. PT HAS NO COMPLAINTS AT THIS TIME. RESPIRATIONS EASY AND REGULAR. BRAVO REMOVED PER ORDER. CALL LIGHT WITHIN REACH. WILL CONTINUE TO MONITOR.
--- NOTE | 2019-11-28 10:32 | NUR ---
PTS BS IN THE 300s. PT IS ONLY ON LANTUS. PT STATES SHE USUALLY TAKES HUMALOG AT HOME. NOTIFIED AND WILL ADD IT ON.
[2019-11-28 12:00] VITALS: BP 127/61
--- NOTE | 2019-11-28 15:27 | NUR ---
PT RESTING IN BED WITH NO COMPLAINTS AT THIS TIME. RESPIRATIONS EASY AND REGULAR. CALL LIGHT WITHIN REACH. WILL CONTINUE TO MONITOR.
[2019-11-28 16:00] VITALS: BP 132/75
--- NOTE | 2019-11-28 16:43 | NUR ---
PT CO BILATERAL FOOT AND HIP PAIN RATED A 6/10. MEDICATED WITH PRN NORCO. WILL CHECK EFFECTIVENESS. CALL LIGHT WITHIN REACH.
--- NOTE | 2019-11-28 17:43 | NUR ---
PT STATES PAIN MED WAS EFFECTIVE.
[2019-11-28 20:00] VITALS: BP 126/68
[2019-11-29] VITALS: BP 125/70
--- NOTE | 2019-11-29 05:24 | NUR ---
Recommend follow up for wound care in outpatient setting patient refused at this time.
[2019-11-29 06:31] LABS: BUN 23 mg/dl (7-24); CHLORIDE 98 mmol/L (98-107); CREATININE 0.97 mg/dL (0.55-1.02); SODIUM 140 mmol/L (136-145)
[2019-11-29 08:00] VITALS: BP 130/73
--- NOTE | 2019-11-29 09:00 | NUR ---
case management visits with patient, patient stated she would be returning home tomorrow and was fearful. she stated she could be transported home by cab but was afraid of getting out of the cab and having to step over the curb and carry her bag, discussed with her if someone was able to come and get her bag and levin tonight, she stated she didn't have anyone that could come tonight, will have social media marketing analyst talk with patient
--- NOTE | 2019-11-29 10:10 | NUR ---
OT NOTE Pt was seen this A.M. 1:1 for 17 minute OT session. Upon arrival pt was supine in bed. Pt identified by name and and had complaints of 2/10 B ankle pain. Pt transferred supine to sit EOB with SBA. Sit to stand completed from bed level with CGA and use of w/w for UE support. Functional mobility was then completed into the bathroom with CGA and use of w/w. There she transferred on/off standard commode with CGA and use of grab bar for UE support. Clothing management completed with SBA. Functional mobility was then completed back to the recliner. Challenged pt's static standing tolerance needed for increased I in self care tasks and functional transfers, pt was able to tolerate aprox 5 minutes before sitting due to fatigue. Pt was left sitting upright in the recliner with call light in hand, tray table in place, and phone in reach. Continue with rec D/C plan to SNF. KRISTYN Mcgee/Robert
--- NOTE | 2019-11-29 10:49 | NUR ---
PHYSICAL THERAPY TREATMENT TIME: 10:15 AM - 10:35 AM Patient presented to therapy in supine with head of bed elevated and report of feelign somewaht better. Patient gives informed consent for treatment. Patient was identified by name and on wristband. Patient performed supine to sitting at EOB transfer with SBA. Patient sat on EOB with SBA. Patient performed sit to stand from EOB with CGA X 1. Patient ambulated with Wh Walker and CGA X 1 with other therapist pushing chair behind patient, as she ambulated for 60' x 3 with only standing restbreaks only. Patient transferred into bedside chair with CGA X 1 with verbal cues for putting hands back on armrests of chair. Patient was left in bedside chair with LEs elevated and pillow under the LEs to keep high. Patient was left with call light within reach and tray table near patient. Patient was 1:1 with this CUTLET MAKER PORK for 20 minutes total. ANAND HERBERT CUTLET MAKER PORK
[2019-11-29 12:00] VITALS: BP 118/64
--- NOTE | 2019-11-29 12:27 | NUR ---
ADDIS was notified there was a concern the patient had over returning home. Patient is concerned that there is a Curb she would not be able to step up onto by herself. Patient has [facility] caregivers 5x a week from 10:15 to 1:30pm. AUDITOR SUPERVISOR contacted [facility] and spoke with Evelia. Evelia stated that she can make sure there is an Aide there to assist the patient. AUDITOR SUPERVISOR contacted RN Hospitalist Coordinator and informed her the patient would need to be discharged in the am so her Aide can meet with her to assist her at home. Sulfur Burner notified. -ADDIS Ponce
--- NOTE | 2019-11-29 13:15 | NUR ---
OT NOTE Pt was seen this P.M. 1:1 for second OT session consisting of 25 minutes. Upon arrival pt was supine in bed. Pt identified by name and and had complaints of 3/10 B ankle pain. Pt transferred supine to sit EOB with SBA. While sitting EOB pt completed BUE towel exercises over all planes of motion for 1 X 10 to increase and restore maximum functional use. Pt then completed functional mobility around the room and to the bathroom with SBA and use of w/w, throughout pt required verbal prompts for slowing down due to bouts of impulsive behaviors. Pt had poor carry over. Pt transferred on/off standard commode with SBA and use of w/w for UE support. Clothing management completed with SBA. Functional mobility completed back to the EOB where she transferred sit to supine with SBA. There she was left with call light in hand, tray table in place, and phone in reach. Continue with rec D/C plan to SNF. KRISTYN Mcgee/Robert
--- NOTE | 2019-11-29 13:27 | NUR ---
PHYSICAL THERAPY TREATMENT TIME: 12:55 PM 1:15 PM Patient presented to therapy in supine with head of bed elevated and bed alarm activated. Patient reports bilateral foot and ankle pain with weight bearing. Patient gives informed consent for treatment. Patient is not on spO2. Patient performed supine to sitting at EOB with SBA. Patient sit to stand from EOB with SBA. Patient ambulated 120' x 1 with Wh Walker and then sat in chair rolled up behind her due to foot pain with SBA. Patient performed sit to stand out of low chair with SBA. Patient performed ambulation a second time for another 120' x 1 with Walker and CLose Supervision with no LOB and no SOB. Patient transferred into supine in bed with SBA. Patient was left in supine in bed with head of bed elevated, call light within reach and bed alarm activated. Patient was 1:1 with this SACK MAKER for 20 MINUTES total. KRISTYN REY as witness for treatment. ANAND HERBERT SACK MAKER
[2019-11-29] MEDS ORDERED: Humalog SQ (13:56)
[2019-11-29] MEDS ORDERED: FUROSEMIDE40 MG PO (13:56)
[2019-11-29 16:00] VITALS: BP 129/60
[2019-11-29 20:00] VITALS: BP 130/61
--- NOTE | 2019-11-29 22:45 | NUR ---
PATIENT MEDICATED WITH NORCO FOR PAIN, RESTORIL FOR INSOMNIA AND VISTARIL FOR ANXIETY. RESTING IN BED WATCHING TV AND TALKING TO HER MOM ON THE PHONE. RESPIRATIONS REGULAR AND NON-LABORED. PATIENT REFUSES TO DO ANYTHING FOR HERSELF. POURED PATIENT WATER TO TAKE PILLS D/T PATIENT SAID SHE COULDN'T POUR IT. SAYS SHE CAN'T DO ANYTHING FOR HERSELF D/T HAVING FIBROMYALGIA. WILL CONTINUE TO MONITOR. CALL LIGHT IN REACH.
[2019-11-30] VITALS: BP 143/74
--- NOTE | 2019-11-30 07:30 | NUR ---
TOOK OVER CARE OF PT. PT LYING IN BED, SLEEPING. RESPIRATIONS EASY AND UNLABORED ON ROOM AIR. NO S/S OF DISTRESS NOTED. ALL SAFETY MEASURES IN PLACE. CALL LIGHT IN REACH.
[2019-11-30 08:00] VITALS: BP 132/70
[2019-11-30] MEDS ORDERED: NYSTOP60 GM T (08:35)
--- NOTE | 2019-11-30 09:01 | NUR ---
PT REFUSING DISCHARGE PHOTOS OF WOUNDS AT THIS TIME. PT STATES THAT SHE IS ALL DRESSED AND READY TO GO HOME. AND ALSO STATES THAT WOUNDS ARE HEALING.
[2019-11-30] MEDS ORDERED: KLOR-CON M2020 ME1 PO (09:16)
--- NOTE | 2019-11-30 10:00 | NUR ---
Discharge instructions reviewed with patient/family. Patient receptive and verbalizes understanding. Follow-up care arranged. Written instructions given to patient/family. PIETRO ROBISON
[2019-11-30 13:07] LABS: ALBUMIN, URINE 32.9 % (.); ALPHA - 2 - GLOBULIN, URINE 13.2 % (.); ALPHA-1-GLOBULIN, URINE 5.2 % (.); GAMMA GLOBULIN, URINE 20.7 % (.); M-SPIKE, % Not Observed % (Not Observed); PROTEIN,TOTAL - URINE RANDOM 40.3 mg/dL (Not Estab.)
--- NOTE | 2019-12-02 07:50 | NUR ---
PHYSICAL THERAPY CO-SIGN I approve of the Physical Therapy notes written above. Hellen Gonzales PT
--- NOTE | 2019-12-02 16:54 | NUR ---
OCCUPATIONAL THERAPY CO-SIGN I approve of the Occupational Therapy notes written above. NIKO KEYES OTR/Robert
== END 2019-11-30 10:00 | disposition home or self-care (01) | DRG 606 ==
LOC: ED 13:56 → 4E 18:36 → EDHOLD 18:36 → 4E 18:44 → 5E 11-25 15:49
PROVIDERS: Emergency Medicine; Family Medicine; Hospitalist; Student in an Organized Health Care Education/Training Program; ADMIT Internal Medicine
DX: I89.0 Lymphedema, not elsewhere classified (principal); E43 Unspecified severe protein-calorie malnutrition; Z68.44 Body mass index [BMI] 60.0-69.9, adult; R60.1 Generalized edema; K75.81 Nonalcoholic steatohepatitis (NASH); M79.7 Fibromyalgia; E66.01 Morbid (severe) obesity due to excess calories; E87.6 Hypokalemia; F31.9 Bipolar disorder, unspecified; E78.5 Hyperlipidemia, unspecified; F41.9 Anxiety disorder, unspecified; E11.65 Type 2 diabetes mellitus with hyperglycemia; I12.9 Hypertensive chronic kidney disease with stage 1 through stage 4 chronic kidney disease, or unspecified chronic kidney disease; N18.9 Chronic kidney disease, unspecified; E28.2 Polycystic ovarian syndrome; E03.9 Hypothyroidism, unspecified; F17.210 Nicotine dependence, cigarettes, uncomplicated; E55.9 Vitamin D deficiency, unspecified; G89.4 Chronic pain syndrome; Z86.711 Personal history of pulmonary embolism; Z79.4 Long term (current) use of insulin; Z79.01 Long term (current) use of anticoagulants; Z85.42 Personal history of malignant neoplasm of other parts of uterus; Z90.49 Acquired absence of other specified parts of digestive tract; Z90.710 Acquired absence of both cervix and uterus; Z82.49 Family history of ischemic heart disease and other diseases of the circulatory system; Z86.718 Personal history of other venous thrombosis and embolism; Z79.899 Other long term (current) drug therapy

== ENCOUNTER → 2019-12-27 | Outpatient (CLI) | payer MEDICARE, OTHER ==
[~2019-12-27] MED LIST changes: +FUROSEMIDE40 MG PO; +HYDROXYZINE PAM25 M1 PO; +Humalog SQ; +KLOR-CON M2020 ME1 PO; +NYSTOP60 GM T; +VITAMIN D350000 UNIT PO
== END | disposition home or self-care (01) ==
LOC: US 14:00
DX: M79.661 Pain in right lower leg (principal); I73.9 Peripheral vascular disease, unspecified; Z86.718 Personal history of other venous thrombosis and embolism; Z87.59 Personal history of other complications of pregnancy, childbirth and the puerperium

== ENCOUNTER 2020-05-20 21:46 | Emergency (ER) | payer MEDICARE, OTHER ==
[~2020-05-20] VITALS: Ht 165.1 cm; Wt 115.2 kg
[~2020-05-20 21:46] MED LIST changes: +CHOLECALCIFEROL PO; -VITAMIN D350000 UNIT PO
[2020-05-20 22:48] LABS: BASO # 0.1 10*3/uL (0.0-0.1); BASO % 0.5 % (0.0-1.0); EOS # 0.2 10*3/uL (0.0-0.4); EOS % 1.5 % (1.0-4.0); HEMATOCRIT 43.4 % (37.0-47.0); LYMPH # 0.6 10*3/uL (1.3-4.4); MEAN CELL VOLUME 94.3 fl (81.0-99.0); MEAN CORPUSCULAR HGB 29.8 pg (27.0-31.0); MEAN CORPUSCULAR HGB CONC 31.6 g/dl (33.0-37.0); MEAN PLATELET VOLUME 11.8 fl (9.6-12.3); MONO # 0.6 10*3/uL (0.1-1.0); NEUT # 10.2 10*3/uL (2.3-7.9); NEUT % 87.6 % (47.0-73.0); PLATELET COUNT AUTOMATED 174 10*3/uL (130-400); RED CELL DISTRI WIDTH 13.4 % (0-14.5); WHITE BLOOD COUNT 11.7 10*3/uL (4.8-10.8)
[2020-05-20 22:58] LABS: ACT PARTIAL THROMBO TIME 27.3 SECONDS (20.0-32.1)
[2020-05-20 23:03] LABS: ALBUMIN 2.8 gm/dl (3.1-4.5); ALKALINE PHOSPHATASE 259 U/L (45-117); BUN 16 mg/dl (7-24); CHLORIDE 107 mmol/L (98-107); LIPASE 132 U/L (73-393); POTASSIUM 4.5 mmol/L (3.5-5.1); SGOT/AST 50 IU/L (3-35); SGPT/ALT 52 U/L (12-78); SODIUM 139 mmol/L (136-145); TOTAL PROTEIN 7.9 gm/dL (6.4-8.2)
[2020-05-20 23:04] LABS: TROPONIN I < 0.015 ng/ml (<0.045)
[2020-05-20 23:39] LABS: BILIRUBIN NEGATIVE (NEGATIVE); BLOOD NEGATIVE (NEGATIVE); CLARITY SL CLOUDY (CLEAR); COLOR YELLOW (YELLOW); GLUCOSE NEGATIVE (NEGATIVE); KETONE NEGATIVE (NEGATIVE); LEUKO ESTERASE NEGATIVE (NEGATIVE); NITRITE NEGATIVE (NEGATIVE); SPECIFIC GRAVITY 1.025 (1.005-1.030); UROBILINOGEN 0.2 E.U./dl (0.2-1.0)
[2020-05-20 23:47] LABS: EPITHELIAL CELLS 31-40
[2020-05-22] MEDS ORDERED: AMITRIPTYLINE100 M1 PO (13:31)
[2020-05-22] MEDS ORDERED: OXYBUTYNIN10 MG PO (13:32)
[2020-05-22] MEDS ORDERED: NORCO 5-325 TA1 EACH PO (13:35)
[2020-05-22] MEDS ORDERED: HUMALOG100 UNIT/1 SC (13:42)
== END 2020-05-21 02:51 | disposition home or self-care (01) ==
LOC: ED 21:46
PROVIDERS: Emergency Medicine Emergency Medical Services
DX: F32.9 Major depressive disorder, single episode, unspecified (principal); I12.9 Hypertensive chronic kidney disease with stage 1 through stage 4 chronic kidney disease, or unspecified chronic kidney disease; E11.22 Type 2 diabetes mellitus with diabetic chronic kidney disease; N18.9 Chronic kidney disease, unspecified; E03.9 Hypothyroidism, unspecified; F41.9 Anxiety disorder, unspecified; Z79.899 Other long term (current) drug therapy

== ENCOUNTER 2020-05-22 08:52 | Inpatient (IN) | payer MEDICARE, OTHER ==
[~2020-05-22] VITALS: Ht 165.1 cm; Wt 161.0 kg
[2020-05-22 08:54] VITALS: BP 115/59
[2020-05-22 09:48] LABS: BASO % 0.2 % (0.0-1.0); EOS # 0.1 10*3/uL (0.0-0.4); EOS % 0.7 % (1.0-4.0); LYMPH # 1.1 10*3/uL (1.3-4.4); LYMPH % 6.6 % (27.0-41.0); MEAN CELL VOLUME 92.3 fl (81.0-99.0); MEAN CORPUSCULAR HGB 29.7 pg (27.0-31.0); MEAN CORPUSCULAR HGB CONC 32.2 g/dl (33.0-37.0); MEAN PLATELET VOLUME 11.8 fl (9.6-12.3); MONO # 0.7 10*3/uL (0.1-1.0); MONO % 4.2 % (3.0-9.0); NEUT # 14.1 10*3/uL (2.3-7.9); NEUT % 87.6 % (47.0-73.0); PLATELET COUNT AUTOMATED 180 10*3/uL (130-400); RED BLOOD COUNT 4.44 10*6/uL (4.10-5.10); RED CELL DISTRI WIDTH 13.8 % (0-14.5); WHITE BLOOD COUNT 16.1 10*3/uL (4.8-10.8)
[2020-05-22 09:58] LABS: ACT PARTIAL THROMBO TIME 31.2 SECONDS (20.0-32.1); INTERNATIONAL NORM RATIO 1.1 (2.0-3.5)
[2020-05-22 10:03] LABS: ALBUMIN 2.6 gm/dl (3.1-4.5); ALKALINE PHOSPHATASE 223 U/L (45-117); BUN 14 mg/dl (7-24); CHLORIDE 102 mmol/L (98-107); CREATININE 0.98 mg/dL (0.55-1.02); SGOT/AST 53 IU/L (3-35); SGPT/ALT 49 U/L (12-78); SODIUM 133 mmol/L (136-145); TOTAL PROTEIN 7.6 gm/dL (6.4-8.2)
[2020-05-22 10:04] LABS: TROPONIN I 0.024 ng/ml (<0.045)
[2020-05-22 10:40] VITALS: BP 104/55
[2020-05-22 10:54] LABS: ARTERIAL BLOOD GAS PH 7.432 (7.35-7.45)
--- NOTE | 2020-05-22 11:25 | NUR ---
A 45YO FEMALE, admitted to , under the services of ESME Cooper DO with a diagnosis of BACTEREMIA/SEPSIS. Chief complaint is PHONED AT HOME BY ED RE: POSITIVE BLOOD CULTURE REQUIRING RETURN TO ED, FEVERS AT HOME FOR PAST 2 DAYS . Patient arrived via stretcher from ER. Monitor applied. Initial assessment completed. Vital signs taken and recorded. ESME COOPER DO notified of admission to the unit. Orders received. See assessment for past medical history, medications and allergies. Patient and/or family oriented to unit. [facility] visitation policy reviewed. Clothing/patient valuable form completed. GANESH DIA
[2020-05-22 11:30] VITALS: BP 93/45
[2020-05-22 12:00] VITALS: BP 93/45
[2020-05-22] MEDS ORDERED: AMITRIPTYLINE100 M1 PO (13:31)
[2020-05-22] MEDS ORDERED: OXYBUTYNIN10 MG PO (13:32)
[2020-05-22] MEDS ORDERED: NORCO 5-325 TA1 EACH PO (13:35)
[2020-05-22] MEDS ORDERED: HUMALOG100 UNIT/1 SC (13:42)
--- NOTE | 2020-05-22 14:09 | NUR ---
MEDICATED WITH PRN PO NORCO FOR RUQ OF ABDOMEN PAIN.
--- NOTE | 2020-05-22 14:12 | NUR ---
DR. HORTON AWARE OF THE CONSULT FOR BACTEREMIA AND IN TO ASSESS THE PATIENT.
--- NOTE | 2020-05-22 15:00 | NUR ---
PRN PO NORCO EFFECTIVE, PER PATIENT.
[2020-05-22 16:00] VITALS: BP 94/57
--- NOTE | 2020-05-22 18:29 | NUR ---
PHONED DR. KNIGHT RE: DR. HORTON NEEDS TO ORDER LYME DISEASE ANTIBODY TEST/LAB DRAW, BUT NEEDS BAND SAW OPERATOR AUTHORIZATION TO DO THIS; DR. KNIGHT IS WORKING WITH DR. EPPS TODAY.
[2020-05-22 20:00] VITALS: BP 107/51
--- NOTE | 2020-05-22 20:00 | NUR ---
AAOX3 SITTING UP IN BED. PT. LEFT THIGH RED & RIGHT ARM RED. PT. VOICES NO OTHER C/O AT THIS TIME; WILL CONTINUE TO MONITOR. CALL LIGHT WITHIN REACH.
[2020-05-22 20:09] LABS: BILIRUBIN NEGATIVE (NEGATIVE); BLOOD NEGATIVE (NEGATIVE); CLARITY CLEAR (CLEAR); COLOR YELLOW (YELLOW); GLUCOSE NEGATIVE (NEGATIVE); KETONE NEGATIVE (NEGATIVE); LEUKO ESTERASE NEGATIVE (NEGATIVE); NITRITE NEGATIVE (NEGATIVE); UROBILINOGEN 0.2 E.U./dl (0.2-1.0)
[2020-05-22 20:10] LABS: WBC 0-2 wbc/hpf (0-5)
--- NOTE | 2020-05-22 20:45 | NUR ---
LAB CALLED & REPORTED +BLOOD CULTURES; CALLED DR. BARRY.
--- NOTE | 2020-05-22 21:30 | NUR ---
EXPLAINED TO PATIENT THAT LAB WOULD BE COMING TO DRAW ANOTHER SET OF BLOOD CULTURES PER DR. BARRY.
--- NOTE | 2020-05-22 21:50 | NUR ---
BLOOD SUGAR 160; PT. DOES NOT TAKE COVERAGE UNTIL HER BLOOD SUGAR IS 200.
--- NOTE | 2020-05-22 22:06 | NUR ---
LAB HERE TO DRAW BLOOD CULTURES. MEDICATED PT. WITH NORCO FOR C/O LEFT ARM PAIN RATED A 4/10. ALSO MEDICATED WITH RESTORIL FOR PT. C/O INSOMNIA. DR. BARRY RECONCILING HOME MEDICATIONS. INFORMED PATIENT THAT I WOULD BRING THEM TO HER WHEN THEY WERE AVAILABLE FROM PHARMACY. PT. VERBALIZED UNDERSTANDING.
--- NOTE | 2020-05-22 23:00 | NUR ---
ASSUMED CARE FOR THIS PT AT THIS TIME. PT RESTING QUIETLY IN BED. CALL LIGHT IN REACH. LT KNEE/THIGH RED/SWOLLEN/WARM TO TOUCH. PT DENIES PAIN.
--- NOTE | 2020-05-22 23:12 | NUR ---
MEDICATED WITH BENTYL FOR C/O ABDOMINAL DISCOMFORT & VISTARIL FOR C/O ANXIETY.
[2020-05-23] VITALS: BP 96/45
[2020-05-23 06:10] LABS: BUN 13 mg/dl (7-24); CHLORIDE 108 mmol/L (98-107); CHOLESTEROL 105 mg/dL (<200); CREATININE 0.74 mg/dL (0.55-1.02); HDL CHOLESTEROL 20 mg/dl (40-60); LDL CHOLESTEROL 61 mg/dL (9-159); POTASSIUM 3.9 mmol/L (3.5-5.1); SODIUM 140 mmol/L (136-145); TRIGLYCERIDES 118 mg/dl (<150); VLDL CHOLESTEROL 24 mg/dL (6-40)
--- NOTE | 2020-05-23 06:13 | NUR ---
PT CHECKED OWN BS W/PT'S CGM. BS RESULTS 130.
[2020-05-23 06:14] LABS: HEMATOCRIT 36.2 % (37.0-47.0); MEAN CELL VOLUME 93.8 fl (81.0-99.0); MEAN CORPUSCULAR HGB 29.8 pg (27.0-31.0); MEAN CORPUSCULAR HGB CONC 31.8 g/dl (33.0-37.0); MEAN PLATELET VOLUME 11.5 fl (9.6-12.3); PLATELET COUNT AUTOMATED 149 10*3/uL (130-400); RED BLOOD COUNT 3.86 10*6/uL (4.10-5.10); WHITE BLOOD COUNT 6.2 10*3/uL (4.8-10.8)
[2020-05-23 07:01] LABS: TOTAL CELLS COUNTED 100 #CELLS
[2020-05-23 07:02] LABS: PLATELET SUFFICIENCY NORMAL (NORMAL); POLYCHROMASIA SLIGHT; ROULEAUX SLIGHT
[2020-05-23 08:00] VITALS: BP 98/58
--- NOTE | 2020-05-23 08:00 | NUR ---
DR. TAYLOR AND GANESH DIA RN NOTIFIED OF BLOOD CULTURE RESULT.
[2020-05-23 08:44] LABS: VITAMIN D, 25-HYDROXY 67.5 ng/mL (30-100)
[2020-05-23 10:25] LABS: ABG BASE EXCESS 1.2 mmol/L (-2.0-2.0); ARTERIAL BLOOD GAS PH 7.385 (7.35-7.45)
[2020-05-23 11:28] LABS: ABG BASE EXCESS 1.2 mmol/L (-2.0-2.0); ARTERIAL BLOOD GAS PH 7.385 (7.35-7.45)
--- NOTE | 2020-05-23 11:48 | NUR ---
Textile Machinery Instructor in to talk to patient. Patient states lives at HOME with ALONE. There are NO steps in the home. Physician: ERIN Pharmacy: [facility] Home health services: [facility] 3 DAYS A WEEK, 3 HOURS AM, 1 HOUR M Patient's level of ADLs: MODERATE ASSIST Patient has working utilities: YES DME: [facility] Follow-up physician's appointment after d/c: WILL BE MADE BY HOSPITALIST NURSE DIRECTOR ON DISCHARGE Does patient want to access PORTAL?: NO Discharge plan PT LIVES AT HOME ALONE. SHE HAS AIDS FROM [employer] [facility] 3 TIMES A WEEK. DENIES SHE WILL HAVE ANY OTHER NEEDS ON DISCHARGE. PLAN IS TO RETURN HOME WHEN MEDICALLY STABLE. WILL CONTINUE TO FOLLOW. STATES SHE WILL HAVE A RIDE HOME ON DISCHARGE.. GONZÁLEZ ROE
[2020-05-23 12:00] VITALS: BP 106/58
--- NOTE | 2020-05-23 14:03 | NUR ---
PATIENT REPORTS PAIN TO LEFT ANTECUBITAL HEPLOCK SITE WITH VANCOMYCIN INFUSION, IV SITE DISCONTINUED. AFTER MULTIPLE IV STICKS, UNABLE TO OBTAIN IV ACCESS. DR. TAYLOR NOTIFIED OF THIS.
--- NOTE | 2020-05-23 15:17 | NUR ---
MIDLINE INSERTED TO RIGHT UPPER ARM BY SURGERY STAFF. RESUMING IV ANTIBIOTIC VANCOMYCIN.
--- NOTE | 2020-05-23 15:18 | NUR ---
PHYSICAL THERAPY Physical Therapy evaluation completed on 5E with full evaluation to follow. Low complexity PT evaluation per chart review and evaluation, [address]. Recommend physical therapy per plan of care and Home Health upon discharge. Thank you for this referral. Nessa Tejada,PT,DPT
[2020-05-23 16:00] VITALS: BP 128/61
--- NOTE | 2020-05-23 16:29 | NUR ---
Occupational Therapy evaluation completed on 5E with full evaluation to follow. Recommend occupational therapy per plan of care and RETURN HOME WITH HOME HEALTH upon discharge. Thank you for this referral. Joyce Farley OTR/L
--- NOTE | 2020-05-23 17:17 | NUR ---
PATIENT USES GLUCOMETER WHICH IS ATTACHED TO HER LLQ (NO FINGER STICK APPARATUS) AND REPORTS HER BLOOD SUGAR TO THE NURSE AC AND HS, SEE BEDSIDE GLUCOSE FLOW SCREEN FOR RESULTS.
[2020-05-23 20:00] VITALS: BP 122/64
--- NOTE | 2020-05-23 20:32 | NUR ---
PATIENT IS AAOX3 RESTING IN BED, WATCHING TV, WITH EASY AND REGULAR RESPERS. ASSESSMENT IS COMPLETE WITH NO S/S DISTRESS NOTED. PATIENT C/O RUQ ABDOMINAL PAIN. RATING A 5/10. BED IS LOW, LOCKED, AND CALL LIGHT IS WITHIN REACH. WILL CONTINUE TO MONITOR. SEE INTERVENTIONS.
--- NOTE | 2020-05-23 20:35 | NUR ---
BLOOD GLUCOSE 121 FROM DEXCOM MONITOR.
--- NOTE | 2020-05-23 20:41 | NUR ---
PRN NORCO AND BENTYL GIVEN FOR C/O STOMACH PAIN/DISCOMFORT. CALL LIGHT IS WITHIN REACH, WILL MONITOR EFFECT.
--- NOTE | 2020-05-23 20:46 | NUR ---
PRN VISTARIL GIVEN FOR C/O ANXIETY. CALL LIGHT IS WITHIN REACH, WILL MONITOR EFFECT.
--- NOTE | 2020-05-23 21:41 | NUR ---
PRN NORCO, BENTYL, AND VISTARIL EFFECTIVE PER PATIENT. CALL LIGHT IS WITHIN REACH.
[2020-05-24] VITALS: BP 104/61
--- NOTE | 2020-05-24 02:55 | NUR ---
CHART CHECK COMPLETE.
--- NOTE | 2020-05-24 04:08 | NUR ---
PATIENT SLEEPING WITH EASY AND REGULAR RESPERS ON ROOM AIR. CALL LIGHT IS WITHIN REACH.
--- NOTE | 2020-05-24 07:03 | NUR ---
BEDSIDE GLUCOSE 113 FROM DEXCOM MONITIOR.
[2020-05-24 08:00] VITALS: BP 127/68
--- NOTE | 2020-05-24 08:50 | NUR ---
PT RESTING IN BED. POSITIONS SELF IN BED. RESP-EASY AND REGULAR. NO C/O AT THIS TIME. TOLERATED ROUTINE MED WITH NO PROBLEM. CALL LIGHT IN REACH. SEE SHIFT ASSESSMENT.
--- NOTE | 2020-05-24 10:00 | NUR ---
PHYSICAL THERAPY Patient seen this am 1;1 for therapy visit and was resting supine in bed upon therapist arrival. Patient identified by name / and and reports no new c/o's at this time. Patient was pleasant this morning and joined by OT blood and plasma laboratory assistant for observation only this session, while transfering supine to sit EOB with SBA x 1. Patient needed a minute or so to collect herself, then completed sit to stand transfer, SBA, ambulating with use of Quad cane, SBA, ad vijay in hallway, 100'x 1 and demonstrating slow, "waddling" gait pattern. Patient returned to EOB sit with increased SOB / fatigue, recording SpO2 92%, HR 109 bpm on room air. Patient stated that was the farthest she had walked in awhile and remained EOB sit with call light, tray table and telephone. Will continue per POC as tolerated, total treatment time 14 minutes. Nigel Gray, METAL SLITTER
--- NOTE | 2020-05-24 10:05 | NUR ---
OT NOTE Pt was seen this A.M. 1:1 for 15 minute OT session. Upon arrival pt was supine in bed. Pt identified by name and and had no complaints at this time. Pt transferred supine to sit EOB with SBA. While sitting EOB pt donned B slippers with SBA. Sit to stand completed from bed level with CGA for safety and use of quad cane for UE support. Functional mobility completed to the bathroom with SBA and use of quad cane. There she transferred on/off standard commode with SBA and use of grab bar for UE support. Pt then returned to the EOB for a seated rest break. She then stood while challenging pt's dynamic standing balance while weight shifting, crossing midline, and reaching over all planes. Pt was able to maintain G- standing balance throughout. Pt was left sitting upright on the EOB with call light in hand, tray table in place, and phone in reach. Continue with rec D/C plan to return home with home health. KRISTYN Mcgee/Robert
--- NOTE | 2020-05-24 10:16 | NUR ---
Nutritional Support Services Note: Pt recieves an 1800cal diabetic diet at this time. Ht.5'5 Wt.355#. IBW [phone]. She checks BS regularly. Encouraged better compliance to diet at home. Pt has limited physical activity. Encouraged healthy eating and proper portion sizes. Will continue to follow as needed. Rosa Hernandez Rdn Ld
--- NOTE | 2020-05-24 10:30 | NUR ---
RESTING IN BED WITH EYES CLOSED. RESP-EASY AND REGULAR. CALL LIGHT INREACH.
--- NOTE | 2020-05-24 11:21 | NUR ---
PT CONTINUES TO DENY NEEDS AT HOME. WILL RETURN HOME WHEN MEDICALLY STABLE. WILL CONTINUE TO FOLLOW.
[2020-05-24] MEDS ORDERED: CEFTRIAXONE2 G1 IV (11:43)
[2020-05-24 12:00] VITALS: BP 113/46
--- NOTE | 2020-05-24 12:00 | NUR ---
PT DID BSG TEST WITH HER MACHINE, BSG-127, SEE EMAR. VISITOR AT HER SIDE. CALL LIGHT IN REACH.
[2020-05-24] MEDS ORDERED: DOXYCYCLINE100 M3 PO (12:52)
--- NOTE | 2020-05-24 12:59 | NUR ---
PT REQUESTING TO COME INTO HOSPITAL TO GET IV ANTIBIOTICS. CALLED [facility] TO SCHEDULE. PT WILL COME INTO HOSPITAL DAILY X 10 DAYS FOR IV ANTIBIOTICS AT 10 AM. PERSCRIPTION FAXED TO [facility], PHARMACY AND REGISTRATION. WENT TO PT ROOM AND GAVE HER ORIGINAL COPY OF SCRIP TO BRING IN TOMORROW. ALSO INFORMED HER TO STOP AT REGISTRATION TOMORROW BEFORE GOING TO SURGERY FOR INFUSION AND TO BE HERE AT 10 AM. PT VOICES UNDERSTANDING.
--- NOTE | 2020-05-24 14:10 | NUR ---
PT ESCORTED VIA WHEELCHAIR FOR DISCHARGE. MIDLINE LEFT IN RIGHT ARM. VISITOR AT HER SIDE. PT INSTRUCTED TO COME TOMORROW FOR OUTPT ANTIBIOTICS. Discharge instructions reviewed with patient/family. Patient receptive and verbalizes understanding. Follow-up care arranged. Written instructions given to patient/family. SHAYY GREEN
--- NOTE | 2020-05-25 08:14 | NUR ---
PHYSICAL THERAPY CO-SIGN I approve of the Physical Therapy notes written above. NICCI BAUM PT, DPT
--- NOTE | 2020-05-25 09:51 | NUR ---
OCCUPATIONAL THERAPY CO-SIGN I approve of the Occupational Therapy notes written above. Joyce Farley OTR/L
== END 2020-05-24 14:10 | disposition home or self-care (01) | DRG 871 ==
LOC: ED 08:52 → EDHOLD 10:02 → 5E 10:02
PROVIDERS: Emergency Medicine; Internal Medicine; Internal Medicine Critical Care Medicine; ADMIT Internal Medicine
PROC: 05HB33Z Insertion of Infusion Device into Right Basilic Vein, Percutaneous Approach (ICD-10-PCS; principal; 2020-05-23)
PROC: B54MZZA Ultrasonography of Right Upper Extremity Veins, Guidance (ICD-10-PCS; principal; 2020-05-23)
DX: A40.1 Sepsis due to streptococcus, group B (principal); J96.01 Acute respiratory failure with hypoxia; E87.1 Hypo-osmolality and hyponatremia; E87.2 Acidosis; A69.20 Lyme disease, unspecified; L03.116 Cellulitis of left lower limb; R65.20 Severe sepsis without septic shock; I89.0 Lymphedema, not elsewhere classified; F31.9 Bipolar disorder, unspecified; F41.9 Anxiety disorder, unspecified; E03.9 Hypothyroidism, unspecified; N18.3 Chronic kidney disease, stage 3 (moderate); M32.8 Other forms of systemic lupus erythematosus; E78.5 Hyperlipidemia, unspecified; I12.9 Hypertensive chronic kidney disease with stage 1 through stage 4 chronic kidney disease, or unspecified chronic kidney disease; E11.22 Type 2 diabetes mellitus with diabetic chronic kidney disease; E11.65 Type 2 diabetes mellitus with hyperglycemia; M79.7 Fibromyalgia; G89.29 Other chronic pain; Z86.718 Personal history of other venous thrombosis and embolism; Z86.711 Personal history of pulmonary embolism; Z85.42 Personal history of malignant neoplasm of other parts of uterus; Z90.49 Acquired absence of other specified parts of digestive tract; Z90.710 Acquired absence of both cervix and uterus; Z87.891 Personal history of nicotine dependence; Z82.49 Family history of ischemic heart disease and other diseases of the circulatory system; Z79.01 Long term (current) use of anticoagulants; Z79.4 Long term (current) use of insulin; Z79.899 Other long term (current) drug therapy

== ENCOUNTER 2020-12-01 14:09 | Inpatient (IN) | payer MEDICARE, OTHER ==
[~2020-12-01] VITALS: Ht 167.6 cm; Wt 166.7 kg
[~2020-12-01 14:09] MED LIST changes: +AMITRIPTYLINE100 M1 PO; +CEFTRIAXONE2 G1 IV; +DOXYCYCLINE100 M3 PO; +HUMALOG100 UNIT/1 SC; +OXYBUTYNIN10 MG PO
[2020-12-01 14:23] VITALS: BP 114/60
[2020-12-01 14:55] LABS: BASO % 0.3 % (0.0-1.0); EOS % 0.3 % (1.0-4.0); HEMATOCRIT 38.9 % (37.0-47.0); LYMPH # 0.4 10*3/uL (1.3-4.4); LYMPH % 7.1 % (27.0-41.0); MEAN CELL VOLUME 87.6 fl (81.0-99.0); MEAN CORPUSCULAR HGB 27.7 pg (27.0-31.0); MEAN CORPUSCULAR HGB CONC 31.6 g/dl (33.0-37.0); MEAN PLATELET VOLUME 11.1 fl (9.6-12.3); MONO # 0.6 10*3/uL (0.1-1.0); MONO % 10.3 % (3.0-9.0); NEUT # 4.7 10*3/uL (2.3-7.9); NEUT % 81.5 % (47.0-73.0); PLATELET COUNT AUTOMATED 150 10*3/uL (130-400); RED BLOOD COUNT 4.44 10*6/uL (4.10-5.10); RED CELL DISTRI WIDTH 12.6 % (0-14.5); WHITE BLOOD COUNT 5.7 10*3/uL (4.8-10.8)
[2020-12-01 15:10] LABS: ACT PARTIAL THROMBO TIME 28.6 SECONDS (20.0-32.1); INTERNATIONAL NORM RATIO 1.2 (2.0-3.5)
[2020-12-01 15:13] LABS: ALBUMIN 2.3 gm/dl (3.1-4.5); ALKALINE PHOSPHATASE 240 U/L (45-117); BUN 13 mg/dl (7-24); CHLORIDE 103 mmol/L (98-107); CREATININE 0.78 mg/dL (0.55-1.02); LDH 215 U/L (84-246); POTASSIUM 4.5 mmol/L (3.5-5.1); SGOT/AST 67 IU/L (3-35); SGPT/ALT 41 U/L (12-78); SODIUM 136 mmol/L (136-145); TOTAL PROTEIN 7.4 gm/dL (6.4-8.2)
[2020-12-01 15:18] LABS: TROPONIN I 0.059 ng/ml (<0.045)
[2020-12-01 15:37] LABS: ABG BASE EXCESS 2.9 mmol/L (-2.0-2.0); ARTERIAL BLOOD GAS PH 7.442 (7.35-7.45)
[2020-12-01 15:59] VITALS: BP 120/68
[2020-12-01 17:39] VITALS: BP 122/68
[2020-12-01 18:59] VITALS: BP 130/70
--- NOTE | 2020-12-01 19:00 | NUR ---
REPORT FROM HIRAM TOBIN RN.
[2020-12-01 20:19] LABS: BILIRUBIN Negative (Negative); BLOOD Negative (Negative); CLARITY Clear (Clear); COLOR Dark Yellow (Yellow); GLUCOSE Negative (Negative); KETONE Negative (Negative); LEUKO ESTERASE Trace (Negative); NITRITE Negative (Negative); PH 5.5 (4.5-8.0)
[2020-12-01 20:26] LABS: BACTERIA 2+; RBC 0-2 rbc/hpf (0-2)
--- NOTE | 2020-12-01 20:47 | NUR ---
DR. WARNER CONSULTED.
[2020-12-01 21:35] VITALS: BP 130/68
--- NOTE | 2020-12-01 22:49 | NUR ---
MOVED PATIENT INTO AN INPATIENT BED.
--- NOTE | 2020-12-01 23:10 | NUR ---
PATIENT IS RESTING IN BED COMFORTABLLY. NO COMPLAINTS AT THIS TIME. RR EASY AND NON-LABORED. CALL LIGHT WITHIN REACH. NO DISTRESS NOTED AT THIS TIME.
--- NOTE | 2020-12-01 23:46 | NUR ---
PATIENT UP AND TO BEDSIDE COMMODE
[2020-12-02] VITALS (7 sets, daily range): BP systolic 103–128; BP diastolic 51–71
--- NOTE | 2020-12-02 00:15 | NUR ---
NOTIFIED DR. FIERRO THAT PATIENT WANTS HER NIGHT TIME MEDICATIONS. DR. FIERRO STATES HE WILL PUT IN ORDERS.
--- NOTE | 2020-12-02 01:24 | NUR ---
NOTIFIED NURSING ADMINISTRATIVE JUDGE OF NEW MEDICATION ORDERS. UNABLE TO PULL MEDS IN ER PIXIS AT THIS TIMEL
--- NOTE | 2020-12-02 01:39 | NUR ---
NURSING SUPERVISIOR DIEUDONNE STATES SHE IS UNABLE TO GET VRAYLAR AT THIS TIME. NOTIFED DR. FIERRO
[2020-12-02 04:21] LABS: BASO % 0.4 % (0.0-1.0); EOS % 0.2 % (1.0-4.0); HEMATOCRIT 36.8 % (37.0-47.0); LYMPH # 0.7 10*3/uL (1.3-4.4); MEAN CELL VOLUME 86.6 fl (81.0-99.0); MEAN CORPUSCULAR HGB 27.5 pg (27.0-31.0); MEAN CORPUSCULAR HGB CONC 31.8 g/dl (33.0-37.0); MEAN PLATELET VOLUME 10.5 fl (9.6-12.3); MONO # 0.5 10*3/uL (0.1-1.0); MONO % 8.3 % (3.0-9.0); NEUT # 4.3 10*3/uL (2.3-7.9); NEUT % 78.4 % (47.0-73.0); PLATELET COUNT AUTOMATED 153 10*3/uL (130-400); RED BLOOD COUNT 4.25 10*6/uL (4.10-5.10); RED CELL DISTRI WIDTH 12.6 % (0-14.5); WHITE BLOOD COUNT 5.4 10*3/uL (4.8-10.8)
[2020-12-02 04:42] LABS: ALBUMIN 2.2 gm/dl (3.1-4.5); ALKALINE PHOSPHATASE 219 U/L (45-117); BUN 16 mg/dl (7-24); CHLORIDE 104 mmol/L (98-107); CHOLESTEROL 90 mg/dL (<200); CREATININE 0.65 mg/dL (0.55-1.02); HDL CHOLESTEROL 27 mg/dl (40-60); LDH 179 U/L (84-246); LDL CHOLESTEROL 49 mg/dL (9-159); POTASSIUM 4.4 mmol/L (3.5-5.1); SGOT/AST 61 IU/L (3-35); SGPT/ALT 38 U/L (12-78); SODIUM 137 mmol/L (136-145); TOTAL PROTEIN 7.2 gm/dL (6.4-8.2); TRIGLYCERIDES 70 mg/dl (<150); VLDL CHOLESTEROL 14 mg/dL (6-40)
[2020-12-02 04:45] LABS: ACT PARTIAL THROMBO TIME 32.5 SECONDS (20.0-32.1); INTERNATIONAL NORM RATIO 1.3 (2.0-3.5)
[2020-12-02 04:50] LABS: CPK 95 U/L (26-192); FREE T4 3.96 ng/dl (0.76-1.46)
[2020-12-02 04:51] LABS: THYROID STIM HORMONE (HS) < 0.005 uIU/ml (0.358-4.75)
[2020-12-02 06:36] LABS: FERRITIN 243.1 ng/mL (10.0-291.0); VITAMIN D, 25-HYDROXY 94.3 ng/mL (30-100)
--- NOTE | 2020-12-02 07:10 | NUR ---
NURSE REPORT ACCEPTED FOR CONTINUATION OF CARE.
--- NOTE | 2020-12-02 07:50 | NUR ---
PT ASSIGNED TO [facility]. [facility] UNABLE TO ACCEPT PT AT THIS TIME AND "WILL CALL" WHEN READY.
--- NOTE | 2020-12-02 09:00 | NUR ---
A 45, admitted to ICCU, under the services of ESME Cooper DO with a diagnosis of COVID Chief complaint is SOB/FATIGUE Patient arrived via from ER. Monitor applied. Initial assessment completed. Vital signs taken and recorded. ESME COPOER DO notified of admission to the unit. Orders received. See assessment for past medical history, medications and allergies. Patient and/or family oriented to unit. [facility] visitation policy reviewed. SHAMAR GALLEGOS
[2020-12-02] MEDS ORDERED: Synthroid,Lev200 MCG PO (10:16)
[2020-12-02] MEDS ORDERED: TRUJEO (10:21)
--- NOTE | 2020-12-02 11:44 | NUR ---
MOLD YARD SUPERVISOR SPOKE WITH PATIENT VIA PHONE CALL. Patient states lives at HOME with ALONE. There are NO steps in the home. Physician: DR. [facility] Pharmacy: [facility] Home health services: [facility] 3 DAYS A WEEK, 3 HOURS AM, 1 HOUR M Patient's level of ADLs: MODERATE ASSIST Patient has working utilities: YES DME: CANE, WALKER, CPAP, OXYGEN, PORTABLE TANKS FROM [facility] Follow-up physician's appointment after d/c: WILL BE MADE BY HOSPITALIST NURSE DIRECTOR ON DISCHARGE Does patient want to access PORTAL?: NO Discharge plan PT LIVES AT HOME ALONE. SHE HAS AIDS FROM [employer] [facility] 3 TIMES A WEEK. DENIES SHE WILL HAVE ANY OTHER NEEDS ON DISCHARGE. PLAN IS TO RETURN HOME WHEN MEDICALLY STABLE. WILL CONTINUE TO FOLLOW. STATES SHE WILL HAVE A RIDE HOME ON DISCHARGE. BENJI VELARDE
--- NOTE | 2020-12-02 17:40 | NUR ---
TRANSFERRED TO ROOM 402-2 VIA BED. REPORT GIVEN TO RN
--- NOTE | 2020-12-02 18:15 | NUR ---
PT TRANSFERED FROM ICU TO 402. IV ZOSYN INFUSING PER ORDER TO RAC. CALL LIGHT WITHIN REACH, ASSESSMENT COMPLETED.
--- NOTE | 2020-12-02 22:59 | NUR ---
24 HR chart check completed.
[2020-12-03] VITALS: BP 131/69
[2020-12-03 06:01] LABS: ALBUMIN 2.2 gm/dl (3.1-4.5); BUN 20 mg/dl (7-24); CHLORIDE 107 mmol/L (98-107); LDH 193 U/L (84-246); POTASSIUM 4.4 mmol/L (3.5-5.1); SGOT/AST 42 IU/L (3-35); SGPT/ALT 35 U/L (12-78); SODIUM 139 mmol/L (136-145)
[2020-12-03 06:02] LABS: ALKALINE PHOSPHATASE 204 U/L (45-117)
[2020-12-03 06:06] LABS: BASO % 0.1 % (0.0-1.0); HEMATOCRIT 38.9 % (37.0-47.0); LYMPH # 0.6 10*3/uL (1.3-4.4); LYMPH % 8.2 % (27.0-41.0); MEAN CELL VOLUME 89.4 fl (81.0-99.0); MEAN CORPUSCULAR HGB CONC 31.4 g/dl (33.0-37.0); MEAN PLATELET VOLUME 11.5 fl (9.6-12.3); MONO # 0.4 10*3/uL (0.1-1.0); MONO % 5.5 % (3.0-9.0); NEUT # 5.7 10*3/uL (2.3-7.9); NEUT % 85.6 % (47.0-73.0); PLATELET COUNT AUTOMATED 162 10*3/uL (130-400); RED BLOOD COUNT 4.35 10*6/uL (4.10-5.10); RED CELL DISTRI WIDTH 12.6 % (0-14.5); WHITE BLOOD COUNT 6.7 10*3/uL (4.8-10.8)
[2020-12-03 06:09] LABS: CPK 55 U/L (26-192)
[2020-12-03 08:00] VITALS: BP 164/79
[2020-12-03 12:00] VITALS: BP 128/64
[2020-12-03] MEDS ORDERED: DECADRON6 M1 PO (13:00)
--- NOTE | 2020-12-03 14:55 | NUR ---
pt discharged out via wheelchair. dischrge instructions reviewed. heplock discontinued.
== END 2020-12-03 14:55 | disposition home or self-care (01) | DRG 871 ==
LOC: ED 14:09 → 4E 16:49 → EDHOLD 16:49 → ICCU 12-02 07:24 → 4E 12-02 17:42
PROVIDERS: Emergency Medicine; Hospitalist; ADMIT Internal Medicine; ATTEND Internal Medicine
DX: A41.9 Sepsis, unspecified organism (principal); J18.9 Pneumonia, unspecified organism; J96.01 Acute respiratory failure with hypoxia; E43 Unspecified severe protein-calorie malnutrition; I13.0 Hypertensive heart and chronic kidney disease with heart failure and stage 1 through stage 4 chronic kidney disease, or unspecified chronic kidney disease; J44.0 Chronic obstructive pulmonary disease with (acute) lower respiratory infection; Z68.43 Body mass index [BMI] 50.0-59.9, adult; R65.20 Severe sepsis without septic shock; I50.9 Heart failure, unspecified; R74.01 Elevation of levels of liver transaminase levels; E66.01 Morbid (severe) obesity due to excess calories; F31.9 Bipolar disorder, unspecified; F41.9 Anxiety disorder, unspecified; E11.65 Type 2 diabetes mellitus with hyperglycemia; E28.2 Polycystic ovarian syndrome; G47.33 Obstructive sleep apnea (adult) (pediatric); Z20.822 Contact with and (suspected) exposure to COVID-19; M79.7 Fibromyalgia; N18.30 Chronic kidney disease, stage 3 unspecified; E11.22 Type 2 diabetes mellitus with diabetic chronic kidney disease; M32.9 Systemic lupus erythematosus, unspecified; Z90.49 Acquired absence of other specified parts of digestive tract; Z86.718 Personal history of other venous thrombosis and embolism; Z90.710 Acquired absence of both cervix and uterus; Z82.49 Family history of ischemic heart disease and other diseases of the circulatory system; Z88.8 Allergy status to other drugs, medicaments and biological substances; E03.9 Hypothyroidism, unspecified; Z79.4 Long term (current) use of insulin; Z71.6 Tobacco abuse counseling

== ENCOUNTER → 2021-01-02 | Outpatient (CLI) | payer MEDICARE, OTHER ==
[~2021-01-02] MED LIST changes: +AMOXICILLIN500 M2 PO; +DECADRON6 M1 PO; +IBUPROFEN600 MG PO; +Synthroid,Lev200 MCG PO; +TRUJEO
[2021-01-02 14:12] LABS: BASO % 0.4 % (0.0-1.0); EOS # 0.1 10*3/uL (0.0-0.4); EOS % 1.8 % (1.0-4.0); LYMPH % 19.2 % (27.0-41.0); MEAN CELL VOLUME 88.5 fl (81.0-99.0); MEAN CORPUSCULAR HGB 28.1 pg (27.0-31.0); MEAN CORPUSCULAR HGB CONC 31.8 g/dl (33.0-37.0); MEAN PLATELET VOLUME 11.5 fl (9.6-12.3); MONO # 0.3 10*3/uL (0.1-1.0); MONO % 6.7 % (3.0-9.0); NEUT # 3.5 10*3/uL (2.3-7.9); NEUT % 71.5 % (47.0-73.0); PLATELET COUNT AUTOMATED 147 10*3/uL (130-400); RED BLOOD COUNT 4.52 10*6/uL (4.10-5.10); RED CELL DISTRI WIDTH 13.1 % (0-14.5)
[2021-01-02 14:36] LABS: BILIRUBIN Negative (Negative); BLOOD Negative (Negative); CLARITY Clear (Clear); COLOR Dark Yellow (Yellow); GLUCOSE Negative (Negative); KETONE Negative (Negative); LEUKO ESTERASE Trace (Negative); NITRITE Negative (Negative); PH 6.5 (4.5-8.0)
[2021-01-02 15:30] LABS: BACTERIA 2+; EPITHELIAL CELLS TNTC
[2021-01-02 15:31] LABS: YEAST TRACE
== END | disposition home or self-care (01) ==
LOC: LAB 13:46
PROVIDERS: ATTEND Internal Medicine Nephrology
DX: N18.2 Chronic kidney disease, stage 2 (mild) (principal)

== ENCOUNTER 2021-03-20 11:53 | Emergency (ER) | payer MEDICARE, OTHER ==
[~2021-03-20] VITALS: Wt 158.8 kg
[~2021-03-20 11:53] MED LIST changes: -AMOXICILLIN500 M2 PO; -IBUPROFEN600 MG PO
[2021-03-20] MEDS ORDERED: IBUPROFEN600 MG PO (13:03)
[2021-03-20] MEDS ORDERED: AMOXICILLIN500 M2 PO (13:03)
[2021-03-20] MEDS ORDERED: ZOFRAN4 MG PO (13:13)
== END 2021-03-20 12:58 | disposition home or self-care (01) ==
LOC: ED 11:53
DX: K08.89 Other specified disorders of teeth and supporting structures (principal); F17.200 Nicotine dependence, unspecified, uncomplicated; Z88.8 Allergy status to other drugs, medicaments and biological substances; Z79.899 Other long term (current) drug therapy; Z79.4 Long term (current) use of insulin; Z90.49 Acquired absence of other specified parts of digestive tract; Z98.890 Other specified postprocedural states; Z90.710 Acquired absence of both cervix and uterus

== ENCOUNTER 2021-04-02 12:21 | Emergency (ER) | payer MEDICARE, OTHER ==
[~2021-04-02] VITALS: Ht 167.6 cm; Wt 158.8 kg
[~2021-04-02 12:21] MED LIST changes: +AMOXICILLIN500 M2 PO; +IBUPROFEN600 MG PO
[2021-04-02] MEDS ORDERED: HYDROCODONE-AC1 EAC1 PO (12:56)
== END 2021-04-02 13:06 | disposition home or self-care (01) ==
LOC: ED 12:21
DX: S02.5XXA Fracture of tooth (traumatic), initial encounter for closed fracture (principal); F17.200 Nicotine dependence, unspecified, uncomplicated; Z88.8 Allergy status to other drugs, medicaments and biological substances; Z79.899 Other long term (current) drug therapy; Z90.49 Acquired absence of other specified parts of digestive tract; Z90.711 Acquired absence of uterus with remaining cervical stump; Z98.890 Other specified postprocedural states; X58.XXXA Exposure to other specified factors, initial encounter; Y93.89 Activity, other specified; Y92.89 Other specified places as the place of occurrence of the external cause; Y99.8 Other external cause status

== ENCOUNTER 2021-04-12 10:50 | Emergency (ER) | payer MEDICARE, OTHER ==
[~2021-04-12] VITALS: Wt 158.8 kg
[~2021-04-12 10:50] MED LIST changes: +HYDROCODONE-AC1 EAC1 PO
[2021-04-12] MEDS ORDERED: AMOXICILLIN500 M3 PO (12:55)
== END 2021-04-12 13:06 | disposition home or self-care (01) ==
LOC: ED 10:50
DX: M27.3 Alveolitis of jaws (principal); F41.9 Anxiety disorder, unspecified; J44.9 Chronic obstructive pulmonary disease, unspecified; I13.0 Hypertensive heart and chronic kidney disease with heart failure and stage 1 through stage 4 chronic kidney disease, or unspecified chronic kidney disease; E11.22 Type 2 diabetes mellitus with diabetic chronic kidney disease; I50.9 Heart failure, unspecified; N18.9 Chronic kidney disease, unspecified; E78.5 Hyperlipidemia, unspecified; E03.9 Hypothyroidism, unspecified; E66.01 Morbid (severe) obesity due to excess calories; F17.210 Nicotine dependence, cigarettes, uncomplicated; Z79.899 Other long term (current) drug therapy; Z88.8 Allergy status to other drugs, medicaments and biological substances; Z98.890 Other specified postprocedural states; Z90.49 Acquired absence of other specified parts of digestive tract; Z90.711 Acquired absence of uterus with remaining cervical stump

== ENCOUNTER 2021-04-17 19:28 | Emergency (ER) | payer MEDICARE, OTHER ==
[~2021-04-17 19:28] MED LIST changes: +AMOXICILLIN500 M3 PO
[2021-04-17 19:48] LABS: BASO % 0.6 % (0.0-1.0); EOS # 0.1 10*3/uL (0.0-0.4); EOS % 4.3 % (1.0-4.0); HEMATOCRIT 34.7 % (37.0-47.0); LYMPH # 0.7 10*3/uL (1.3-4.4); LYMPH % 22.7 % (27.0-41.0); MEAN CELL VOLUME 89.9 fl (81.0-99.0); MEAN CORPUSCULAR HGB CONC 32.3 g/dl (33.0-37.0); MEAN PLATELET VOLUME 11.1 fl (9.6-12.3); MONO # 0.3 10*3/uL (0.1-1.0); MONO % 10.4 % (3.0-9.0); NEUT % 61.7 % (47.0-73.0); PLATELET COUNT AUTOMATED 103 10*3/uL (130-400); RED BLOOD COUNT 3.86 10*6/uL (4.10-5.10); RED CELL DISTRI WIDTH 13.6 % (0-14.5); WHITE BLOOD COUNT 3.3 10*3/uL (4.8-10.8)
[2021-04-17 20:03] LABS: BUN 14 mg/dl (7-24); CHLORIDE 110 mmol/L (98-107); CREATININE 0.76 mg/dL (0.55-1.02); POTASSIUM 3.9 mmol/L (3.5-5.1); SODIUM 142 mmol/L (136-145)
== END 2021-04-17 22:05 | disposition home or self-care (01) ==
LOC: ED 19:28
PROVIDERS: Internal Medicine
DX: R60.0 Localized edema (principal); D61.818 Other pancytopenia; Z88.8 Allergy status to other drugs, medicaments and biological substances; Z79.899 Other long term (current) drug therapy; Z90.49 Acquired absence of other specified parts of digestive tract; Z90.711 Acquired absence of uterus with remaining cervical stump; Z98.890 Other specified postprocedural states

== ENCOUNTER 2021-04-22 23:51 | Emergency (ER) | payer MEDICARE, OTHER ==
[~2021-04-22] VITALS: Wt 147.4 kg
== END 2021-04-23 07:23 | disposition home or self-care (01) ==
LOC: ED 23:51
DX: S70.02XA Contusion of left hip, initial encounter (principal); E11.9 Type 2 diabetes mellitus without complications; I11.0 Hypertensive heart disease with heart failure; I50.9 Heart failure, unspecified; J44.9 Chronic obstructive pulmonary disease, unspecified; F41.9 Anxiety disorder, unspecified; F31.9 Bipolar disorder, unspecified; E78.5 Hyperlipidemia, unspecified; E03.9 Hypothyroidism, unspecified; Z88.8 Allergy status to other drugs, medicaments and biological substances; Z79.899 Other long term (current) drug therapy; Z79.2 Long term (current) use of antibiotics; Z98.890 Other specified postprocedural states; Z90.49 Acquired absence of other specified parts of digestive tract; X58.XXXA Exposure to other specified factors, initial encounter; Y93.89 Activity, other specified; Y92.89 Other specified places as the place of occurrence of the external cause; Y99.8 Other external cause status

== ENCOUNTER → 2021-04-23 | Outpatient (CLI) | payer MEDICARE, OTHER ==
[2021-04-23 09:04] LABS: BASO % 0.7 % (0.0-1.0); EOS # 0.1 10*3/uL (0.0-0.4); EOS % 2.4 % (1.0-4.0); HEMATOCRIT 35.6 % (37.0-47.0); LYMPH # 0.7 10*3/uL (1.3-4.4); LYMPH % 24.2 % (27.0-41.0); MEAN CELL VOLUME 90.8 fl (81.0-99.0); MEAN CORPUSCULAR HGB 29.1 pg (27.0-31.0); MEAN PLATELET VOLUME 11.8 fl (9.6-12.3); MONO # 0.4 10*3/uL (0.1-1.0); MONO % 12.1 % (3.0-9.0); NEUT # 1.8 10*3/uL (2.3-7.9); NEUT % 60.3 % (47.0-73.0); PLATELET COUNT AUTOMATED 116 10*3/uL (130-400); RED BLOOD COUNT 3.92 10*6/uL (4.10-5.10); RED CELL DISTRI WIDTH 13.3 % (0-14.5)
[2021-04-23 09:28] LABS: ALBUMIN 2.5 gm/dl (3.1-4.5); ALKALINE PHOSPHATASE 136 U/L (45-117); BUN 14 mg/dl (7-24); CHLORIDE 111 mmol/L (98-107); CREATININE 0.76 mg/dL (0.55-1.02); LDH 263 U/L (84-246); POTASSIUM 3.4 mmol/L (3.5-5.1); SGOT/AST 62 IU/L (3-35); SGPT/ALT 35 U/L (12-78); SODIUM 144 mmol/L (136-145); TOTAL PROTEIN 6.3 gm/dL (6.4-8.2); URIC ACID 6.2 mg/dL (2.6-6.0)
[2021-04-23 09:52] LABS: FREE T4 3.76 ng/dl (0.76-1.46)
== END | disposition home or self-care (01) ==
LOC: US 04-20 14:30 → LAB 08:01 → US 08:01
PROVIDERS: ATTEND Family Medicine
DX: R60.0 Localized edema (principal)

== ENCOUNTER 2021-06-29 14:19 | Emergency (ER) | payer MEDICARE, OTHER ==
[~2021-06-29] VITALS: Ht 167.6 cm; Wt 176.0 kg
[2021-06-29 15:37] LABS: BASO % 0.5 % (0.0-1.0); EOS # 0.1 10*3/uL (0.0-0.4); EOS % 2.3 % (1.0-4.0); HEMATOCRIT 42.2 % (37.0-47.0); LYMPH # 0.6 10*3/uL (1.3-4.4); MEAN CELL VOLUME 88.5 fl (81.0-99.0); MEAN CORPUSCULAR HGB 27.7 pg (27.0-31.0); MEAN CORPUSCULAR HGB CONC 31.3 g/dl (33.0-37.0); MEAN PLATELET VOLUME 12.9 fl (9.6-12.3); MONO # 0.4 10*3/uL (0.1-1.0); NEUT # 3.2 10*3/uL (2.3-7.9); PLATELET COUNT AUTOMATED 81 10*3/uL (130-400); RED BLOOD COUNT 4.77 10*6/uL (4.10-5.10); RED CELL DISTRI WIDTH 12.6 % (0-14.5); WHITE BLOOD COUNT 4.3 10*3/uL (4.8-10.8)
[2021-06-29 15:55] LABS: ALBUMIN 2.6 gm/dl (3.1-4.5); ALKALINE PHOSPHATASE 202 U/L (45-117); BUN 15 mg/dl (7-24); CHLORIDE 106 mmol/L (98-107); CREATININE 0.76 mg/dL (0.55-1.02); LIPASE 79 U/L (73-393); POTASSIUM 4.6 mmol/L (3.5-5.1); SGOT/AST 59 IU/L (3-35); SGPT/ALT 46 U/L (12-78); SODIUM 136 mmol/L (136-145); TOTAL PROTEIN 6.9 gm/dL (6.4-8.2)
[2021-06-29 17:51] LABS: BILIRUBIN Negative (Negative); BLOOD Negative (Negative); CLARITY Clear (Clear); COLOR Yellow (Yellow); GLUCOSE Negative (Negative); KETONE Negative (Negative); LEUKO ESTERASE Negative (Negative); NITRITE Negative (Negative); SPECIFIC GRAVITY 1.025 (1.001-1.030)
[2021-06-29 18:14] LABS: BACTERIA 3+; RBC 0-2 rbc/hpf (0-2)
[2021-06-29] MEDS ORDERED: ZOFRAN4 MG SL (20:10)
== END 2021-06-29 20:15 | disposition home or self-care (01) ==
LOC: ED 14:19
PROVIDERS: Physician Assistant
DX: R10.84 Generalized abdominal pain (principal); R19.7 Diarrhea, unspecified; K62.5 Hemorrhage of anus and rectum; I10 Essential (primary) hypertension; F41.9 Anxiety disorder, unspecified; F32.9 Major depressive disorder, single episode, unspecified; E11.9 Type 2 diabetes mellitus without complications; F31.9 Bipolar disorder, unspecified; E07.89 Other specified disorders of thyroid; Z87.891 Personal history of nicotine dependence; Z90.49 Acquired absence of other specified parts of digestive tract; Z87.42 Personal history of other diseases of the female genital tract; Z90.711 Acquired absence of uterus with remaining cervical stump; Z88.8 Allergy status to other drugs, medicaments and biological substances; Z79.899 Other long term (current) drug therapy; Z79.4 Long term (current) use of insulin; Z86.711 Personal history of pulmonary embolism

== ENCOUNTER 2021-07-05 12:19 | Emergency (ER) | payer MEDICARE, OTHER ==
[~2021-07-05 12:19] MED LIST changes: +ZOFRAN4 MG SL
[2021-07-05] MEDS ORDERED: HORIZANT300 M1 PO (12:21)
[2021-07-05 12:43] LABS: BASO % 0.7 % (0.0-1.0); EOS # 0.1 10*3/uL (0.0-0.4); EOS % 2.6 % (1.0-4.0); HEMATOCRIT 40.6 % (37.0-47.0); LYMPH # 0.7 10*3/uL (1.3-4.4); LYMPH % 15.6 % (27.0-41.0); MEAN CELL VOLUME 88.5 fl (81.0-99.0); MEAN CORPUSCULAR HGB 27.9 pg (27.0-31.0); MEAN CORPUSCULAR HGB CONC 31.5 g/dl (33.0-37.0); MEAN PLATELET VOLUME 12.3 fl (9.6-12.3); MONO # 0.3 10*3/uL (0.1-1.0); MONO % 6.7 % (3.0-9.0); NEUT # 3.1 10*3/uL (2.3-7.9); NEUT % 73.9 % (47.0-73.0); PLATELET COUNT AUTOMATED 104 10*3/uL (130-400); RED BLOOD COUNT 4.59 10*6/uL (4.10-5.10); RED CELL DISTRI WIDTH 13.4 % (0-14.5); WHITE BLOOD COUNT 4.2 10*3/uL (4.8-10.8)
[2021-07-05 13:01] LABS: ALBUMIN 2.4 gm/dl (3.1-4.5); ALKALINE PHOSPHATASE 201 U/L (45-117); BUN 9 mg/dl (7-24); CHLORIDE 105 mmol/L (98-107); CREATININE 0.72 mg/dL (0.55-1.02); LIPASE 99 U/L (73-393); POTASSIUM 4.6 mmol/L (3.5-5.1); SGOT/AST 42 IU/L (3-35); SGPT/ALT 37 U/L (12-78); SODIUM 138 mmol/L (136-145); TOTAL PROTEIN 6.8 gm/dL (6.4-8.2)
[2021-07-05 13:02] LABS: TROPONIN I < 0.015 ng/ml (<0.045)
[2021-07-05 14:53] LABS: BILIRUBIN Negative (Negative); BLOOD Negative (Negative); CLARITY Clear (Clear); COLOR Orange (Yellow); GLUCOSE 1+ (Negative); KETONE Trace (Negative); LEUKO ESTERASE Negative (Negative); NITRITE Negative (Negative); SPECIFIC GRAVITY 1.025 (1.001-1.030)
[2021-07-05 15:19] LABS: BACTERIA 1+; EPITHELIAL CELLS 21-30; RBC 0-2 rbc/hpf (0-2); WBC 0-2 wbc/hpf (0-5)
[2021-07-05] MEDS ORDERED: HYDROCODONE-AC1 EAC1 PO (15:39)
== END 2021-07-05 15:48 | disposition home or self-care (01) ==
LOC: ED 12:19
PROVIDERS: Physician Assistant
DX: R07.89 Other chest pain (principal); R25.1 Tremor, unspecified; M54.9 Dorsalgia, unspecified; M06.9 Rheumatoid arthritis, unspecified; F17.200 Nicotine dependence, unspecified, uncomplicated; Z88.8 Allergy status to other drugs, medicaments and biological substances; Z79.899 Other long term (current) drug therapy; Z79.4 Long term (current) use of insulin; Z90.49 Acquired absence of other specified parts of digestive tract; Z90.711 Acquired absence of uterus with remaining cervical stump; Z87.42 Personal history of other diseases of the female genital tract

== ENCOUNTER 2021-09-07 14:19 | Emergency (ER) | payer MEDICARE, OTHER ==
[~2021-09-07 14:19] MED LIST changes: +HORIZANT300 M1 PO
[2021-09-07 14:53] LABS: BASO % 0.8 % (0.0-1.0); EOS # 0.2 10*3/uL (0.0-0.4); EOS % 3.1 % (1.0-4.0); HEMATOCRIT 36.3 % (37.0-47.0); LYMPH # 0.6 10*3/uL (1.3-4.4); LYMPH % 11.4 % (27.0-41.0); MEAN CELL VOLUME 90.3 fl (81.0-99.0); MEAN CORPUSCULAR HGB 27.9 pg (27.0-31.0); MEAN CORPUSCULAR HGB CONC 30.9 g/dl (33.0-37.0); MEAN PLATELET VOLUME 12.3 fl (9.6-12.3); MONO # 0.5 10*3/uL (0.1-1.0); MONO % 8.7 % (3.0-9.0); NEUT # 3.9 10*3/uL (2.3-7.9); NEUT % 75.4 % (47.0-73.0); PLATELET COUNT AUTOMATED 130 10*3/uL (130-400); RED BLOOD COUNT 4.02 10*6/uL (4.10-5.10); RED CELL DISTRI WIDTH 14.8 % (0-14.5); WHITE BLOOD COUNT 5.2 10*3/uL (4.8-10.8)
[2021-09-07 15:58] LABS: BUN 17 mg/dl (7-24); CHLORIDE 107 mmol/L (98-107); CREATININE 0.75 mg/dL (0.55-1.02); POTASSIUM 4.5 mmol/L (3.5-5.1); SODIUM 140 mmol/L (136-145); URIC ACID 4.6 mg/dL (2.6-6.0)
== END 2021-09-07 15:54 | disposition home or self-care (01) ==
LOC: ED 14:19
PROVIDERS: Emergency Medicine
DX: M25.561 Pain in right knee (principal); I11.0 Hypertensive heart disease with heart failure; I50.9 Heart failure, unspecified; J44.9 Chronic obstructive pulmonary disease, unspecified; E11.9 Type 2 diabetes mellitus without complications; Z88.8 Allergy status to other drugs, medicaments and biological substances; Z79.899 Other long term (current) drug therapy; Z87.891 Personal history of nicotine dependence

== ENCOUNTER 2021-10-11 20:19 | Emergency (ER) | payer MEDICARE, OTHER ==
[~2021-10-11] VITALS: Ht 167.6 cm; Wt 154.2 kg
[2021-10-11 20:38] LABS: BASO % 0.8 % (0.0-1.0); EOS # 0.2 10*3/uL (0.0-0.4); HEMATOCRIT 38.1 % (37.0-47.0); LYMPH # 0.3 10*3/uL (1.3-4.4); LYMPH % 5.6 % (27.0-41.0); MEAN CELL VOLUME 90.1 fl (81.0-99.0); MEAN CORPUSCULAR HGB 27.4 pg (27.0-31.0); MEAN CORPUSCULAR HGB CONC 30.4 g/dl (33.0-37.0); MEAN PLATELET VOLUME 11.9 fl (9.6-12.3); MONO # 0.5 10*3/uL (0.1-1.0); NEUT # 3.7 10*3/uL (2.3-7.9); NEUT % 78.2 % (47.0-73.0); PLATELET COUNT AUTOMATED 118 10*3/uL (130-400); RED BLOOD COUNT 4.23 10*6/uL (4.10-5.10); RED CELL DISTRI WIDTH 14.8 % (0-14.5); WHITE BLOOD COUNT 4.8 10*3/uL (4.8-10.8)
[2021-10-11 20:56] LABS: ALBUMIN 2.2 gm/dl (3.1-4.5); ALKALINE PHOSPHATASE 252 U/L (45-117); BUN 10 mg/dl (7-24); CHLORIDE 106 mmol/L (98-107); POTASSIUM 4.5 mmol/L (3.5-5.1); SGOT/AST 97 IU/L (3-35); SGPT/ALT 49 U/L (12-78); SODIUM 138 mmol/L (136-145); TOTAL PROTEIN 6.7 gm/dL (6.4-8.2)
[2021-10-11] MEDS ORDERED: DECADRON6 M1 PO (21:59)
== END 2021-10-11 22:20 | disposition home or self-care (01) ==
LOC: ED 20:19
PROVIDERS: Internal Medicine
DX: J40 Bronchitis, not specified as acute or chronic (principal); Z20.822 Contact with and (suspected) exposure to COVID-19; R79.89 Other specified abnormal findings of blood chemistry; R79.82 Elevated C-reactive protein (CRP); E88.09 Other disorders of plasma-protein metabolism, not elsewhere classified; Z88.8 Allergy status to other drugs, medicaments and biological substances; Z79.899 Other long term (current) drug therapy; Z87.891 Personal history of nicotine dependence

== ENCOUNTER 2021-10-15 18:35 | Inpatient (IN) | payer MEDICARE, OTHER ==
[~2021-10-15] VITALS: Ht 167.6 cm; Wt 211.1 kg
[2021-10-15 00:20] VITALS: BP 139/76
[2021-10-15 18:40] VITALS: BP 129/60
[2021-10-15 19:09] LABS: EOS % 0.2 % (1.0-4.0); HEMATOCRIT 36.1 % (37.0-47.0); LYMPH # 0.2 10*3/uL (1.3-4.4); LYMPH % 3.9 % (27.0-41.0); MEAN CELL VOLUME 91.4 fl (81.0-99.0); MEAN CORPUSCULAR HGB 28.1 pg (27.0-31.0); MEAN CORPUSCULAR HGB CONC 30.7 g/dl (33.0-37.0); MEAN PLATELET VOLUME 11.9 fl (9.6-12.3); MONO # 0.6 10*3/uL (0.1-1.0); MONO % 10.7 % (3.0-9.0); NEUT # 4.8 10*3/uL (2.3-7.9); NEUT % 84.8 % (47.0-73.0); PLATELET COUNT AUTOMATED 125 10*3/uL (130-400); RED BLOOD COUNT 3.95 10*6/uL (4.10-5.10); RED CELL DISTRI WIDTH 15.1 % (0-14.5); WHITE BLOOD COUNT 5.6 10*3/uL (4.8-10.8)
[2021-10-15 19:25] LABS: ALBUMIN 2.3 gm/dl (3.1-4.5); ALKALINE PHOSPHATASE 268 U/L (45-117); BUN 17 mg/dl (7-24); CHLORIDE 104 mmol/L (98-107); CREATININE 0.78 mg/dL (0.55-1.02); POTASSIUM 4.6 mmol/L (3.5-5.1); SGOT/AST 142 IU/L (3-35); SGPT/ALT 74 U/L (12-78); SODIUM 135 mmol/L (136-145); TOTAL PROTEIN 6.9 gm/dL (6.4-8.2)
[2021-10-15 21:11] LABS: ABG BASE EXCESS 1.2 mmol/L (-2.0-2.0); ARTERIAL BLOOD GAS PH 7.387 (7.35-7.45); ARTERIAL BLOOD GAS PO2 64.4 (80-90)
[2021-10-16 00:20] VITALS: BP 139/76
[2021-10-16 06:04] LABS: ALBUMIN 2.2 gm/dl (3.1-4.5); ALKALINE PHOSPHATASE 246 U/L (45-117); BUN 19 mg/dl (7-24); CHLORIDE 103 mmol/L (98-107); CREATININE 0.81 mg/dL (0.55-1.02); LDH 232 U/L (84-246); POTASSIUM 4.9 mmol/L (3.5-5.1); SGOT/AST 119 IU/L (3-35); SGPT/ALT 68 U/L (12-78); SODIUM 135 mmol/L (136-145); TOTAL PROTEIN 6.6 gm/dL (6.4-8.2)
[2021-10-16 06:05] LABS: FREE T4 2.55 ng/dl (0.76-1.46)
[2021-10-16 06:27] LABS: THYROID STIM HORMONE (HS) < 0.005 uIU/ml (0.358-4.75); TROPONIN I < 0.015 ng/ml (<0.045)
[2021-10-16 06:32] LABS: LYMPH # 0.3 10*3/uL (1.3-4.4); MEAN CELL VOLUME 91.4 fl (81.0-99.0); MEAN CORPUSCULAR HGB 27.9 pg (27.0-31.0); MEAN CORPUSCULAR HGB CONC 30.6 g/dl (33.0-37.0); MEAN PLATELET VOLUME 12.1 fl (9.6-12.3); MONO # 0.3 10*3/uL (0.1-1.0); MONO % 8.3 % (3.0-9.0); NEUT # 2.9 10*3/uL (2.3-7.9); NEUT % 83.1 % (47.0-73.0); PLATELET COUNT AUTOMATED 120 10*3/uL (130-400); RED BLOOD COUNT 3.83 10*6/uL (4.10-5.10); RED CELL DISTRI WIDTH 14.9 % (0-14.5); WHITE BLOOD COUNT 3.5 10*3/uL (4.8-10.8)
[2021-10-16 08:00] VITALS: BP 133/69; BP 153/69
[2021-10-16 11:53] VITALS: BP 129/66
[2021-10-16 16:00] VITALS: BP 137/61
[2021-10-16 20:00] VITALS: BP 146/77
[2021-10-17] VITALS: BP 127/66
[2021-10-17 07:22] LABS: HEMATOCRIT 37.8 % (37.0-47.0); LYMPH # 0.3 10*3/uL (1.3-4.4); MEAN CELL VOLUME 91.5 fl (81.0-99.0); MEAN CORPUSCULAR HGB 27.8 pg (27.0-31.0); MEAN CORPUSCULAR HGB CONC 30.4 g/dl (33.0-37.0); MEAN PLATELET VOLUME 12.2 fl (9.6-12.3); MONO # 0.4 10*3/uL (0.1-1.0); MONO % 12.4 % (3.0-9.0); NEUT # 2.5 10*3/uL (2.3-7.9); NEUT % 78.3 % (47.0-73.0); PLATELET COUNT AUTOMATED 116 10*3/uL (130-400); RED BLOOD COUNT 4.13 10*6/uL (4.10-5.10); RED CELL DISTRI WIDTH 14.8 % (0-14.5); WHITE BLOOD COUNT 3.2 10*3/uL (4.8-10.8)
[2021-10-17 07:24] LABS: ALBUMIN 2.2 gm/dl (3.1-4.5); ALKALINE PHOSPHATASE 250 U/L (45-117); BUN 25 mg/dl (7-24); CHLORIDE 104 mmol/L (98-107); CREATININE 0.65 mg/dL (0.55-1.02); POTASSIUM 4.3 mmol/L (3.5-5.1); SGOT/AST 99 IU/L (3-35); SGPT/ALT 68 U/L (12-78); SODIUM 136 mmol/L (136-145); TOTAL PROTEIN 6.6 gm/dL (6.4-8.2)
[2021-10-17 08:50] VITALS: BP 126/66
[2021-10-17 12:00] VITALS: BP 127/66
[2021-10-17 15:00] VITALS: BP 129/67
[2021-10-17 20:00] VITALS: BP 128/74
[2021-10-18] VITALS: BP 130/76
[2021-10-18 06:12] LABS: BUN 25 mg/dl (7-24); CHLORIDE 104 mmol/L (98-107); POTASSIUM 4.6 mmol/L (3.5-5.1); SGPT/ALT 69 U/L (12-78); SODIUM 138 mmol/L (136-145)
[2021-10-18 06:15] LABS: ALKALINE PHOSPHATASE 238 U/L (45-117); CREATININE 0.59 mg/dL (0.55-1.02); SGOT/AST 93 IU/L (3-35); TOTAL PROTEIN 6.5 gm/dL (6.4-8.2)
[2021-10-18 06:42] LABS: EOS % 0.3 % (1.0-4.0); HEMATOCRIT 36.9 % (37.0-47.0); LYMPH # 0.4 10*3/uL (1.3-4.4); LYMPH % 9.3 % (27.0-41.0); MEAN CELL VOLUME 89.1 fl (81.0-99.0); MEAN CORPUSCULAR HGB 27.5 pg (27.0-31.0); MEAN CORPUSCULAR HGB CONC 30.9 g/dl (33.0-37.0); MEAN PLATELET VOLUME 12.2 fl (9.6-12.3); MONO # 0.4 10*3/uL (0.1-1.0); MONO % 10.1 % (3.0-9.0); NEUT # 3.2 10*3/uL (2.3-7.9); PLATELET COUNT AUTOMATED 120 10*3/uL (130-400); RED BLOOD COUNT 4.14 10*6/uL (4.10-5.10); RED CELL DISTRI WIDTH 14.6 % (0-14.5)
[2021-10-18 08:00] VITALS: BP 138/75
[2021-10-18] MEDS ORDERED: DECADRON6 M1 PO (09:51)
== END 2021-10-18 11:19 | disposition home health service (06) | DRG 871 ==
LOC: ED 18:35 → EDHOLD 21:27 → 4E 21:27
PROVIDERS: Family Medicine; Nurse Practitioner; Student in an Organized Health Care Education/Training Program; ADMIT Internal Medicine; ATTEND Internal Medicine
PROC: XW033E5 Introduction of Remdesivir Anti-infective into Peripheral Vein, Percutaneous Approach, New Technology Group 5 (ICD-10-PCS; principal; 2021-10-16)
DX: A41.9 Sepsis, unspecified organism (principal); J12.82 Pneumonia due to coronavirus disease 2019; J96.01 Acute respiratory failure with hypoxia; E43 Unspecified severe protein-calorie malnutrition; U07.1 COVID-19; E87.1 Hypo-osmolality and hyponatremia; J44.1 Chronic obstructive pulmonary disease with (acute) exacerbation; I50.32 Chronic diastolic (congestive) heart failure; Z68.43 Body mass index [BMI] 50.0-59.9, adult; E11.65 Type 2 diabetes mellitus with hyperglycemia; R74.01 Elevation of levels of liver transaminase levels; E66.9 Obesity, unspecified; D69.6 Thrombocytopenia, unspecified; D64.9 Anemia, unspecified; K75.81 Nonalcoholic steatohepatitis (NASH); E66.01 Morbid (severe) obesity due to excess calories; E03.9 Hypothyroidism, unspecified; F17.210 Nicotine dependence, cigarettes, uncomplicated; F31.9 Bipolar disorder, unspecified; I11.0 Hypertensive heart disease with heart failure; Z71.6 Tobacco abuse counseling; Z79.4 Long term (current) use of insulin; Z90.49 Acquired absence of other specified parts of digestive tract; Z90.710 Acquired absence of both cervix and uterus; Z82.49 Family history of ischemic heart disease and other diseases of the circulatory system; Z88.8 Allergy status to other drugs, medicaments and biological substances; Z79.899 Other long term (current) drug therapy; Z79.1 Long term (current) use of non-steroidal anti-inflammatories (NSAID)